=== PATIENT | female | born 1965 | race Caucasian/White ===

== ENCOUNTER → 2017-09-03 07:19 | Outpatient (CLI) | payer BC, SELFPAY ==
[2017-09-03 08:00] LABS: Alanine Aminotransferase 49 U/L (12-78); Albumin Level 3.9 gm/dL (3.4-5.0); Albumin/Globulin Ratio 1.1 (1.1-1.8); Alkaline Phosphatase 76 U/L (46-116); Anion Gap 10.9 mEq/L (5-15); Aspartate Amino Transferase 27 U/L (15-37); Bilirubin,Total 0.5 mg/dL (0.2-1.0); Blood Urea Nitrogen 14 mg/dL (7-18); Calcium 9.1 mg/dL (8.5-10.1); Carbon Dioxide 30 mmol/L (21.0-32.0); Chloride 103 mmol/L (98-107); Chol/HDL Ratio 4.4 (1-3.5); Cholesterol 215 mg/dL (140-200); Creatinine,Serum 0.89 mg/dL (0.55-1.02); Estimated Glomerular Filt Rate 66 ml/min (>60); GFR (African American) 80 ML/MIN (>60); Globulin 3.4 gm/dl (1.3-3.2); Glucose 103 mg/dL (74-106); HDL Cholesterol 49 mg/dL (29-89); LDL Cholesterol 131 mg/dL (0-130); Potassium 3.9 mmoL/L (3.5-5.1); Sodium 140 mmol/L (136-145); Thyroid Stimulating Hormone 2.89 uIU/ml (0.358-3.740); Total Protein,Serum 7.3 gm/dL (6.4-8.2); Triglycerides 176 mg/dL (30-200); VLDL Cholesterol 35 mg/dL (0-40)
[2017-09-03 08:01] LABS: Basophils % 0.4 % (0.1-2.0); Eosinophils # 0.1 K/mm3 (0.0-0.4); Eosinophils % 1.8 % (0.1-12.0); Hematocrit 45.3 % (37.0-47.0); Hemoglobin 14.8 g/dL (12.2-16.2); Lymphocytes % 39.4 K/mm3 (10-50); Mean Corpuscular HGB Conc 32.7 g/dL (31.8-35.4); Mean Corpuscular Hemoglobin 31.4 pg (27.0-31.2); Mean Corpuscular Volume 96.1 fl (81-99); Mean Platelet Volume 7.5 fl (7.4-10.4); Monocytes # 0.3 K/mm3 (0.1-1.0); Monocytes % 5.6 % (1.7-9.3); Neutrophils # 2.7 K/mm3 (1.8-7.8); Neutrophils % 52.8 % (37.0-80.0); Platelet Count 275 K/mm3 (142-424); Red Blood Count 4.71 M/mm3 (4.20-5.40); Red Cell Distribution Width 12.7 % (11.5-17.5); White Blood Count 5.1 K/mm3 (4.8-10.8)
[2017-09-04 13:22] LABS: Insulin Level Total 28.5 uIU/mL (2.6-24.9); Vitamin D 25 Hydroxy 33.6 ng/mL (30.0-100.0)
[2017-09-05 11:52] LABS: Apolipoprotein A 150 mg/dL (116-209)
== END ==
PROVIDERS: Visit Provider Nurse Practitioner Family
DX: I25.10 Atherosclerotic heart disease of native coronary artery without angina pectoris (principal); R63.5 Abnormal weight gain; I10 Essential (primary) hypertension; G47.33 Obstructive sleep apnea (adult) (pediatric)
CPT/HCPCS: 36415; 80053; 80061; 82172; 82533; 82652; 83525; 84443; 85025

== ENCOUNTER → 2017-12-16 09:38 | Outpatient (CLI) | payer BC, SELFPAY ==
[2017-12-16 12:48] LABS: Alanine Aminotransferase 51 U/L (12-78); Albumin Level 3.8 gm/dL (3.4-5.0); Albumin/Globulin Ratio 1.2 (1.1-1.8); Alkaline Phosphatase 94 U/L (46-116); Anion Gap 14.3 mEq/L (5-15); Aspartate Amino Transferase 37 U/L (15-37); Bilirubin,Total 0.5 mg/dL (0.2-1.0); Blood Urea Nitrogen 13 mg/dL (7-18); Calcium 9.6 mg/dL (8.5-10.1); Carbon Dioxide 29 mmol/L (21.0-32.0); Chloride 103 mmol/L (98-107); Chol/HDL Ratio 4.3 (1-3.5); Cholesterol 202 mg/dL (140-200); Creatinine,Serum 0.86 mg/dL (0.55-1.02); Estimated Glomerular Filt Rate 69 ml/min (>60); GFR (African American) 83 ML/MIN (>60); Globulin 3.2 gm/dl (1.3-3.2); Glucose 91 mg/dL (74-106); HDL Cholesterol 47 mg/dL (29-89); LDL Cholesterol 113 mg/dL (0-130); Potassium 4.3 mmoL/L (3.5-5.1); Sodium 142 mmol/L (136-145); Triglycerides 211 mg/dL (30-200); VLDL Cholesterol 42 mg/dL (0-40)
== END ==
PROVIDERS: Visit Provider Physician Assistant
DX: E78.5 Hyperlipidemia, unspecified (principal); I25.10 Atherosclerotic heart disease of native coronary artery without angina pectoris
CPT/HCPCS: 36415; 80053; 80061

== ENCOUNTER → 2018-01-02 16:13 | Outpatient (CLI) | payer BC, SELFPAY ==
--- NOTE | 2018-01-02 16:18 | MM_ITS ---
MM Dig screening mamm BI w/CAD ORDERING PHYSICIAN : Kalia Payne MD PATIENT AGE: 52 years GENDER: Female HISTORY. Routine screening mammogram. Patient takes estrogen. No new complaints. Family history. Noncontributory COMPARISON: No previous for comparison Prior mammogram 12 years ago have been purged from this facility [facility] as per Hospital administrative guidelines. TECHNIQUE: Standard CC and MLO images were obtained. Additional axillary cc view both breast R2 CAD reviewed. FINDINGS: Moderate residual fibroglandular elements bilaterally most evident at retroareolar region & towards upper-outer quadrant . LEFT BREAST:2 adjacent small round ~6mm densities seen at central breast.. Seen on both CC and MLO views . Smooth round margins.- These have a benign appearance and may be cysts Are noted 2 small round densities at the superior breast with slightly and lobulated margins seen on MLO view. .... On the cc view there is small focal area of density labeled towards medial breast labeled X which likely correspond with one of these areas seen on the superior breast on MLO view.. There are other smaller scattered areas of focal density/nodularity.. These are less evident at currently less concern but will be surveyed on the additional views as well. Recommend CC and MLO spot view for these nodular densities at superior breast; and a full 90 degree view entire breast, followed by ultrasound left breast RIGHT BREAST:Small area of density at the deep upper outer right breast is labeled a. May merely be summation shadow of fibroglandular elements but it also would benefit from spot views and ultrasound left breast the patient returns. This just over 6 mm size. Small 4.5 mm round nodular density at the medial right breast may be a cyst IMPRESSION . 1.. Additional views bilaterally along, with bilateral breast ultrasound recommended. 2. LEFT BREAST. Scattered small nodular densities some with smooth margin, some with slightly lobulated margins. . Multiplicity tends to supports benign nature.-Thus May merely BE cysts 3. RIGHT BREAST Also some scattered small areas of densities at the right breast which would benefit from spot views as well when patient returns. Particular the area labeled a BI-RADS Category: 0 Need Additional Imaging Evaluaiton. RECOMMENDED FOLLOW-UP: IMM - IMMEDIATE FOLLOW-UP RECOMMENDED ADDITIONAL IMAGING AT THIS TIME RECOMMENDED Recommended follow-up at patient's convenience with Spot views and ultrasound breast (A letter has been sent to the patient regarding results of the study.)
== END ==
PROVIDERS: Visit Provider Internal Medicine Adolescent Medicine
DX: Z12.31 Encounter for screening mammogram for malignant neoplasm of breast (principal)
CPT/HCPCS: 77067

== ENCOUNTER → 2018-01-28 13:38 | Outpatient (CLI) | payer BC, SELFPAY ==
--- NOTE | 2018-01-28 13:42 | MM_ITS ---
. MM Dig mamm BI DX w/CAD, US breast LT complete COMPARISON: January 02, 2018. INDICATION: Densities, nodularity bilaterally. TECHNIQUE: Spot CC and MLO images were obtained. R2 CAD reviewed. DIAGNOSTIC BILATERAL MAMMOGRAM-SPOT VIEWS BILATERAL LEFT BREAST Spot views again show a small rounded density.. The largest measuring 6 mm the located at 3-4 o'clock position.. Subcutaneous ultrasound shows a 6.3 mm cyst in this location to correlate. Scattered small round density become less evident on today's spot views but we do see scattered small cysts throughout the breast on ultrasound which would likely correlate RIGHT BREAST Small focus density of density deep right breast seems to dissipate on today's MLO spot view. Most likely is a benign feature. Follow-up right mammogram 6 months would be adequate.. On also to further evaluate the small area of nodularity at the medial right breast which was not included on recent spot views. ULTRASOUND LEFT BREAST INCLUDING AXILLA SURVEY Ultrasound of the left breast demonstrate scattered small cyst throughout 1:00 there is a 3.7 mm cyst mid breast 3:00 6.3 mm cyst mid-central breast which likely corresponds with the round density on mammography.. 6:00 small 3.7 mm cyst. Mid breast. Axillary survey. Postinfusion findings benign-appearing axillary lymph nodes. IMPRESSION: 1. LEFT BREAST. Multiple small benign cysts seen on today's ultrasound. The largest measures 6.4 mm corresponds with a rounded density at 3:00-4:00 on spot views and recent mammogram. No areas of concern follow-up in one year adequate. 2. RIGHT BREAST. Small density at the deep right breast seems to dissipate on today's MLO view, of less concern. Follow-up 6-8 months suggested for the above minor most likely benign, as well as a small 5 mm lobulated nodular density medial right breast seen on January 02, 2018 exam.. BI-RADS Category: 3 Benign Finding Short Term Follow-up RECOMMENDED FOLLOW-UP: 6M - 6 MONTH FOLLOW-UP Right mammogram 6-8 months (A letter has been sent to the patient regarding results of the study.)
== END ==
PROVIDERS: PCP Internal Medicine Adolescent Medicine; Visit Provider Internal Medicine Adolescent Medicine
DX: R92.8 Other abnormal and inconclusive findings on diagnostic imaging of breast (principal)
CPT/HCPCS: 76641; 77066

== ENCOUNTER → 2018-04-05 09:01 | Outpatient (CLI) | payer BC, SELFPAY ==
[2018-04-05 11:32] LABS: Alanine Aminotransferase 61 U/L (12-78); Albumin Level 3.9 gm/dL (3.4-5.0); Albumin/Globulin Ratio 1.2 (1.1-1.8); Alkaline Phosphatase 93 U/L (46-116); Anion Gap 14.2 mEq/L (5-15); Aspartate Amino Transferase 56 U/L (15-37); Bilirubin,Total 0.8 mg/dL (0.2-1.0); Blood Urea Nitrogen 9 mg/dL (7-18); Calcium 9.4 mg/dL (8.5-10.1); Carbon Dioxide 29 mmol/L (21.0-32.0); Chloride 101 mmol/L (98-107); Chol/HDL Ratio 3.2 (1-3.5); Cholesterol 136 mg/dL (140-200); Creatinine,Serum 0.94 mg/dL (0.55-1.02); Estimated Glomerular Filt Rate 62 ml/min (>60); GFR (African American) 75 ML/MIN (>60); Globulin 3.3 gm/dl (1.3-3.2); Glucose 99 mg/dL (74-106); HDL Cholesterol 42 mg/dL (29-89); LDL Cholesterol 53 mg/dL (0-130); Potassium 4.2 mmoL/L (3.5-5.1); Sodium 140 mmol/L (136-145); Total Protein,Serum 7.2 gm/dL (6.4-8.2); Triglycerides 204 mg/dL (30-200); VLDL Cholesterol 41 mg/dL (0-40)
== END ==
PROVIDERS: PCP Internal Medicine Adolescent Medicine; Visit Provider Physician Assistant
DX: I25.10 Atherosclerotic heart disease of native coronary artery without angina pectoris (principal); E78.5 Hyperlipidemia, unspecified
CPT/HCPCS: 36415; 80053; 80061

== ENCOUNTER 2018-06-14 12:32 | Observation (INO) ==
[2018-06-14 13:26] LABS: Basophils % 0.4 % (0.1-2.0); Eosinophils # 0.1 K/mm3 (0.0-0.4); Hematocrit 46.9 % (37.0-47.0); Hemoglobin 15.3 g/dL (12.2-16.2); Lymphocytes # 2.1 K/mm3 (0.7-4.5); Lymphocytes % 42.2 % (10-50); Mean Corpuscular HGB Conc 32.7 g/dL (31.8-35.4); Mean Corpuscular Hemoglobin 30.8 pg (27.0-31.2); Mean Corpuscular Volume 94.3 fl (81-99); Mean Platelet Volume 7.6 fl (7.4-10.4); Monocytes # 0.3 K/mm3 (0.1-1.0); Monocytes % 5.8 % (1.7-9.3); Neutrophils # 2.4 K/mm3 (1.8-7.8); Neutrophils % 49.7 % (37.0-80.0); Platelet Count 259 K/mm3 (142-424); Red Blood Count 4.97 M/mm3 (4.20-5.40); Red Cell Distribution Width 12.9 % (11.5-17.5); White Blood Count 4.9 K/mm3 (4.8-10.8)
--- NOTE | 2018-06-14 13:44 | Pharmacy Consult Notes ---
[facility] Pharmacy VTE Monitoring - Patient Demographics Admission date: 06/14/18 Report Date: 06/14/18 Time: 13:44 Allergies/Adverse Reactions: Patient Allergies butorphanol Allergy (Severe, Unverified 03/11/18 17:17) S-DROP IN B/P rosuvastatin Allergy (Intermediate, Unverified 03/11/18 17:17) I-HIVES Height: 1.7 m Weight: 85.474 kg - VTE Risk Labs: VTE Related Lab Results Hgb 15.3 g/dL (12.2-16.2) 06/14/18 12:55 Hct 46.9 % (37.0-47.0) 06/14/18 12:55 Plt Count 259 K/mm3 (142-424) 06/14/18 12:55 VTE Score: 4 VTE Risk Level: Low Risk - Prophylaxis VTE Prophylaxis Ordered?: Yes Types of VTE Prophylaxis: TEDS Knee High Location of Applied Device: Bilateral Lower Extremeties - VTE Diagnosis Confirmed Treatment or plan recommended: Continue Current Treatment
--- NOTE | 2018-06-14 13:45 | History & Physical Report ---
*Admission Date: 06/14/18 *Chief complaint: chest pain *History of present illness: 53 year old female with a h/o CAD w/ TX, HTN, hyperlipidemia and presented to PCP office with c/o left arm pain that radiated to neck/jaw last evening. Patient reports pain was assoc with upper back pain and shortness of breath. Currently has an ache in lower arm/wrist. Symptoms c/w TX 3 years ago. Last heart cath 1.5 years ago with no intervention at that time. Patient reports fatigue which has significantly worsened over the last 3 months. EKG in the office showed T wave changes with no acute ischemia, c/w EKG from 2017. Patient was admitted to acute care for serial enzymes and further evaluation. [facility] History I have reviewed the patient's past medical history: Yes Medical History: Reports:: Coronary Artery Disease, Diabetes Mellitus Type 2, Hy perlipidemia, Hypertension Denies:: Cancer, Diabetes Mellitus Type 1, MRSA Other Surgeries: Yes: Appendectomy, Coronary Stent, Hysterectomy-Total, Tubal Ligation Amputation: No - *Social History Educational Level: Completed Graduate School Smoking Status: Never smoker Alcohol Intake: never Occupational Status: retired Housing: house Household Members: spouse, children - Psychiatric History Expresses thoughts of harming self/others: None Suicide Plan Description: No Plan *Family Hx:: Diabetes, Coronary Artery Disease, Heart Attack Review of Systems - Review of Systems Review of systems:: pertinent systems reviewed and negative unless documented below - Constitutional Reports fatigue - *Cardiovascular Reports shortness of breath, Reports other Comments: upper back pain, left arm/jaw pain - *Gastrointestinal Reports nausea Meds Home Medications Medication Instructions Recorded Confirmed Type aspirin 81 mg tablet,delayed 81 mg PO DAILY 03/11/18 06/14/18 History release hydrochlorothiazide 12.5 mg capsule 12.5 mg PO DAILY 03/11/18 06/14/18 History metformin 500 mg tablet 500 mg PO HS tab 03/11/18 06/14/18 History nebivolol 5 mg tablet 5 mg PO BID tab 03/11/18 06/14/18 History rosuvastatin 20 mg tablet 40 mg PO HS tab 03/11/18 06/14/18 History Ascorbate Calcium [Vitamin C] 500 mg PO DAILY 06/14/18 06/14/18 History Estrogen,Richelle/Me-Testosterone 1 tab PO DAILY 06/14/18 06/14/18 History [Estrogen-Methyltestos F.s. Tab] Ezetimibe 10 mg PO DAILY 06/14/18 06/14/18 History Mv-Mn/Folic Acid/Calcium/Vit K 1 each PO DAILY 06/14/18 06/14/18 History [Women's 50 Plus Multivit Tab] Omeprazole [Omeprazole 20mg 20 mg PO DAILY 06/14/18 06/14/18 History Capsule] Ubidecarenone [Co Q-10] 200 mg PO DAILY 06/14/18 06/14/18 History Allergies Allergy/AdvReac Type Severity Reaction Status Date / Time butorphanol Allergy Severe S-DROP IN Unverified 03/11/18 17:17 B/P rosuvastatin Allergy Intermediate I-HIVES Unverified 03/11/18 17:17 Exam Vital signs and Labs for Last 24 Hours: Temp Pulse Resp BP Pulse Ox 97.5 F L 68 18 132/77 94 L 06/14/18 12:34 06/14/18 12:34 06/14/18 12:34 06/14/18 12:34 06/14/18 12:34 Laboratory Results - last 24 hr 06/14/18 12:55: WBC 4.9, RBC 4.97, Hgb 15.3, Hct 46.9, MCV 94.3, MCH 30.8, MCHC 32.7, RDW 12.9, Plt Count 259, MPV 7.6, Neut % (Auto) 49.7, Lymph % (Auto) 42.2, [place] % (Auto) 5.8, Eos % (Auto) 2.0, Baso % (Auto) 0.4, Neut # (Auto) 2.4, Lymph # (Auto) 2.1, [place] # (Auto) 0.3, Eos # (Auto) 0.1, Baso # (Auto) 0.0 I & O for Last 24 hours: Intake & Output 06/12/18 06/13/18 06/14/18 06/15/18 11:59 11:59 11:59 11:59 Weight 188 lb 7 oz Narrative: Alert and oriented x3. Rate and rhythm regular. No LE edema. Lung sound clear and equal bilaterally. Abdomen soft and nontender. No JVD. No carotid bruit. Skin pink, warm and dry. ENT exam unremarkable. No neuro deficits. Assessment and Plan (1) CAD (coronary artery disease) Current visit: Yes Status: Chronic Category: Medical Code(s): I25.10 - Atherosclerotic heart disease of [place] coronary artery without angina pectoris (2) Hyperlipemia Current visit: Yes Status: Chronic Category: Medical Code(s): E78.5 - Hyperlipidemia, unspecified (3) Hypertension Current visit: Yes Status: Chronic Category: Medical Code(s): I10 - Essential (primary) hypertension - Assessment and plan all Dx Assessment and Plan for all problems:: Symptoms are concerning for angina given her history and multiple risk factors. Admit for observation with serial enzymes and chest pain protocol.
[2018-06-14 13:49] LABS: Carbon Dioxide 27 mmol/L (21.0-32.0); Chloride 101 mmol/L (98-107); Creatine Kinase 111 U/L (26-192); Potassium 3.7 mmoL/L (3.5-5.1); Sodium 140 mmol/L (136-145)
[2018-06-14 13:50] LABS: Alanine Aminotransferase 71 U/L (12-78); Albumin Level 4.3 gm/dL (3.4-5.0); Albumin/Globulin Ratio 1.1 (1.1-1.8); Alkaline Phosphatase 101 U/L (46-116); Anion Gap 11.7 mEq/L (5-15); Aspartate Amino Transferase 55 U/L (15-37); Bilirubin,Total 0.7 mg/dL (0.2-1.0); Blood Urea Nitrogen 13 mg/dL (7-18); Calcium 9.5 mg/dL (8.5-10.1); Globulin 3.8 gm/dl (1.3-3.2); Glucose 101 mg/dL (74-106); Total Protein,Serum 8.1 gm/dL (6.4-8.2)
[2018-06-14 17:06] LABS: Creatine Kinase 101 U/L (26-192)
[2018-06-14 20:05] LABS: Creatine Kinase 94 U/L (26-192)
[2018-06-15 06:41] LABS: Chol/HDL Ratio 3.4 (1-3.5)
[2018-06-15 07:04] LABS: Thyroid Stimulating Hormone 3.46 uIU/ml (0.358-3.740)
--- NOTE | 2018-06-15 08:34 | Discharge Summary ---
General - General Admission date:: 06/14/18 Discharge date: 06/15/18 HPI HPI: 53 year old female with a h/o CAD w/ ME, HTN, hyperlipidemia and presented to PCP office with c/o left arm pain that radiated to neck/jaw last evening. Patient reports pain was assoc with upper back pain and shortness of breath. Currently has an ache in lower arm/wrist. Symptoms c/w ME 3 years ago. Last heart cath 1.5 years ago with no intervention at that time. Patient reports fatigue which has significantly worsened over the last 3 months. EKG in the office showed T wave changes with no acute ischemia, c/w EKG from 2017. Patient was admitted to acute care for serial enzymes and further evaluation. Hospital Course Hospital Course: Patient was admitted, had no unusual events on telemetry monitoring and EKG complexes remained at baseline. Serial cardiac enzymes were done with undetectable troponin levels x3. Other labs were nonsignificant. This morning patient feels well, had one episode when she lay flat last night of left arm tingling and reports that this is similar to the event she has had at home over the past couple of months that almost always occur when she lies flat. She reports that she has been walking around the room and the hospital hallway without chest pain, shortness of air or fatigue. Exam was unremarkable. Patient will be discharged home. I am curious that she may have a cervical n euralgia. We will obtain neck x-rays today, and at her follow-up appointment on Saturday we will discuss these x-rays and discuss whether or not MRI would be indicated. We did review the signs/symptoms of angina and discussed the concept of atypical angina. I do not believe this represents her case-but instructed to come back to the emergency department if she became more concerned about cardiac symptoms. Objective Vital signs: Temp Pulse Resp BP Pulse Ox 98.1 F 71 17 106/59 L 95 06/15/18 04:00 06/15/18 04:00 06/15/18 04:00 06/15/18 04:00 06/15/18 04:00 no acute distress, average body habitus, cooperative - *Routine HEENT Exam Head: Present: normocephalic, atraumatic Eye: Present: EOMI, PERRL ENT: Present: mucous membranes moist - *Routine Neck Exam Present: supple, full ROM. Absent: JVD, carotid bruit - *Routine Respiratory Exam Present: CTA bilaterally. Absent: prolonged expiratory phase, rales, respiratory distress - *Routine Cardiovascular Exam Present: RRR, Normal S1, Normal S2. Absent: murmur - *Routine Abdominal Exam Present: soft, normoactive bowel sounds - *Routine Extremities Exam Present: full ROM. Absent: cyanosis, clubbing, edema - *Routine Neurological Exam Present: alert, oriented X3, moving all extremities, normal tone, normal speech. Absent: facial asymmetry, tremors - Routine Psychiatric Exam Present: normal affect, normal thought process Results Labs on day of discharge: Labs from last 24 hours 06/15/18 06/14/18 06/14/18 06:15 19:28 16:34 WBC RBC Hgb Hct MCV MCH MCHC RDW Plt Count MPV Neut % (Auto) Lymph % (Auto) [place] % (Auto) Eos % (Auto) Baso % (Auto) Neut # (Auto) Lymph # (Auto) [place] # (Auto) Eos # (Auto) Baso # (Auto) D-Dimer Sodium Potassium Chloride Carbon Dioxide Anion Gap BUN Creatinine Estimated Creat Clear Estimated GFR Est GFR ( Amer) Glucose Calcium Total Bilirubin AST ALT Alkaline Phosphatase Total Creatine Kinase 94 101 CK-MB (CK-2) 1.0 1.2 CK-MB (CK-2) Rel Index 1.1 1.2 Troponin I < 0.02 < 0.02 Total Protein Albumin Globulin Albumin/Globulin Ratio Triglycerides 189 Cholesterol 118 L LDL Cholesterol 45 VLDL Cholesterol 38 HDL Cholesterol 35 Cholesterol/HDL Ratio 3.4 TSH 3.46 06/14/18 06/14/18 06/14/18 12:55 12:55 12:55 WBC 4.9 RBC 4.97 Hgb 15.3 Hct 46.9 MCV 94.3 MCH 30.8 MCHC 32.7 RDW 12.9 Plt Count 259 MPV 7.6 Neut % (Auto) 49.7 Lymph % (Auto) 42.2 [place] % (Auto) 5.8 Eos % (Auto) 2.0 Baso % (Auto) 0.4 Neut # (Auto) 2.4 Lymph # (Auto) 2.1 [place] # (Auto) 0.3 Eos # (Auto) 0.1 Baso # (Auto) 0.0 D-Dimer 100 Sodium 140 Potassium 3.7 Chloride 101 Carbon Dioxide 27 Anion Gap 11.7 BUN 13 Creatinine 0.90 Estimated Creat Clear 95 Estimated GFR 65 Est GFR ( Amer) 79 Glucose 101 Calcium 9.5 Total Bilirubin 0.7 AST 55 H ALT 71 Alkaline Phosphatase 101 Total Creatine Kinase 111 CK-MB (CK-2) 1.4 CK-MB (CK-2) Rel Index 1.3 Troponin I < 0.02 Total Protein 8.1 Albumin 4.3 Globulin 3.8 H Albumin/Globulin Ratio 1.1 Triglycerides Cholesterol LDL Cholesterol VLDL Cholesterol HDL Cholesterol Cholesterol/HDL Ratio TSH DS: Diagnosis - Discharge Diagnosis (1) CAD (coronary artery disease) Status: Chronic (2) Hyperlipemia Status: Chronic (3) Hypertension Status: Chronic (4) Cervical neuralgia Status: Acute Discharge Plan - Patient Discharge Instructions ACTIVITY: Continue current activity DIET: continue same diet Patient Instructions: DI for Chest Pain - Follow up Plan Follow up with: Kathryn Sheldon APRN [Nurse Practitioner] - 06/18/18 10:00 am Disposition: Home, [facility] Medications: Home Medications Medication Instructions Recorded Confirmed Type aspirin 81 mg tablet,delayed 81 mg PO DAILY 03/11/18 06/14/18 History release hydrochlorothiazide 12.5 mg capsule 12.5 mg PO DAILY 03/11/18 06/14/18 History metformin 500 mg tablet 500 mg PO HS tab 03/11/18 06/14/18 History nebivolol 5 mg tablet 5 mg PO BID tab 03/11/18 06/14/18 History rosuvastatin 20 mg tablet 40 mg PO HS tab 03/11/18 06/14/18 History Ascorbate Calcium [Vitamin C] 500 mg PO DAILY 06/14/18 06/14/18 History Estrogen,Richelle/Me-Testosterone 1 tab PO DAILY 06/14/18 06/14/18 History [Estrogen-Methyltestos F.s. Tab] Ezetimibe 10 mg PO DAILY 06/14/18 06/14/18 History Mv-Mn/Folic Acid/Calcium/Vit K 1 each PO DAILY 06/14/18 06/14/18 History [Women's 50 Plus Multivit Tab] Omeprazole [Omeprazole 20mg 20 mg PO DAILY 06/14/18 06/14/18 History Capsule] Ubidecarenone [Co Q-10] 200 mg PO DAILY 06/14/18 06/14/18 History Prescriptions/Medication Reconciliation: Continue nebivolol 5 mg tablet 5 mg PO BID tab rosuvastatin 20 mg tablet 40 mg PO HS tab aspirin 81 mg tablet,delayed release 81 mg PO DAILY hydrochlorothiazide 12.5 mg capsule 12.5 mg PO DAILY metformin 500 mg tablet 500 mg PO HS tab Omeprazole [Omeprazole 20mg Capsule] 20 mg PO DAILY Ezetimibe 10 mg PO DAILY Ubidecarenone [Co Q-10] 200 mg PO DAILY Mv-Mn/Folic Acid/Calcium/Vit K [Women's 50 Plus Multivit Tab] 1 each PO DAILY Ascorbate Calcium [Vitamin C] 500 mg PO DAILY Estrogen,Richelle/Me-Testosterone [Estrogen-Methyltestos F.s. Tab] 1 tab PO DAILY
== END 2018-06-15 10:00 | disposition home or self-care (01) ==
LOC: 2ND
PROVIDERS: ADMIT Internal Medicine Adolescent Medicine; ATTEND Internal Medicine Adolescent Medicine
CPT/HCPCS: 36415; 71020; 71046; 72052; 80053; 80061; 82550; 82553; 84443; 84484; 85025; 85378; 90732; G0378

== ENCOUNTER → 2018-06-19 15:21 | Outpatient (CLI) | payer BC, SELFPAY | PROVIDERS: Visit Provider Physician Assistant | DX: R07.9 Chest pain, unspecified (principal); I25.10 Atherosclerotic heart disease of native coronary artery without angina pectoris | CPT/HCPCS: 93005 ==

== ENCOUNTER → 2018-07-28 10:03 | Outpatient (CLI) | payer BC, SELFPAY ==
[2018-07-28 10:20] LABS: Blood Urea Nitrogen 19 mg/dL (7-18); Creatinine,Serum 0.93 mg/dL (0.55-1.02); Estimated Glomerular Filt Rate 63 ml/min (>60); GFR (African American) 76 ML/MIN (>60)
--- NOTE | 2018-07-28 10:30 | CT_ITS ---
CT abdomen pelvis w con INDICATION: Periumbilical pain. hernia UMBILICAL HERNIA, ABD PAIN Previous appendectomy hysterectomy and stents. ORDERING PHYSICIAN: Kathryn Sheldon PATIENT AGE: 53 years COMPARISON: . TECHNIQUE: 75 cc Isovue-370 along with enteric Vincent-CAT contrast utilized Axial images obtained with sagittal and coronal reformats. All CT scans at the facility use one or more dose reduction, viz: automated exposure control, ma/kV adjustment per patient size (including targeted exams where dose is matched to indication, i.e. head), or iterative reconstruction technique. FINDINGS: Lung bases are clear. Heart normal size. LAD calcification and stent noted. Abdomen/pelvis. Liver, spleen, pancreas, adrenals appears satisfactory & unremarkable. Gallbladder. No calcified gallstones. No biliary ductal dilatation. TRACT: No urinary tract obstruction. Right kidney.... Normal-appearing right kidney slightly tilted Oblique position of right kidney noted. Left kidney.... Tiny 3 mm mm nonobstructing calculus midportion left kidney Only note scant fluid overlying superior margin left kidney as seen on coronal image 67. Nonspecific may merely reflect stranding but. Consider correlation with urinalysis particularly if flank pain or history of urinary tract infection. Ureters are unremarkable bilaterally. No dilatation. No calculi. Pelvis Tiny Phleboliths at the pelvic basin bilaterally . Urinary bladder appears satisfactory.. There is a somewhat long finger like area bladder extending anteriorly and slightly superiorly, likely reflecting likely urachal remnant. Not of clinical significance. . Hysterectomy. No adnexal masses. No free fluid no free air abdomen or pelvis GI TRACT no bowel dilatation or obstruction. Stomach is fairly empty. Small bowel is WNL.. The enteric contrast is seen because more dense and evident at the distal small bowel. Terminal ileum appears normal. Postsurgical Appendiceal stump noted. . Moderate stool is seen throughout the entire colon. --------- ABDOMINAL WALL Small Ventral hernia at region of umbilicus. This is a small umbilical hernia or may actually arise just off along the superior margin of the umbilicus. The abdominal wall defect measuring up to 1 cm height,,. This cm wide.. There is bulging of hazy fat into this hernia. Which measures up to 2.5 cm maximally... There is hazy appearance may reflect mild inflammation at the omental fat within this small hernia sac. There is also some subtle inflammation in the wall about this area. No bowel loops are included here. No additional abdominal hernias are identified.. No additional no ventral hernia. No inguinal hernia... There is some mild inflammation about this IMPRESSION: 1. Small ventral hernia at arising at, or just along the superior margin of umbilicus. . No bowel loops are seen here. But this small hernia sac contains hazy, suspect mildly inflamed appearing fat. Suggest surgical follow-up if tenderness/or pain here.
--- NOTE | 2018-07-28 14:30 | MM_ITS ---
MM Dig mamm DX unilat RT CAD Ordering Physician: Kathryn Sheldon Patient Age: 53 years Female COMPARISON: January 2018 diagnostic mammogram. December 2017 bilateral mammogram. INDICATION: Follow-up asymmetric densities. TECHNIQUE: MLO, CC, axillary cc views. Also spot MLO and 90 degree and axillary cc views for FINDINGS: 2 Small focal area of density at the deep right breast upper-outer quadrant. Most notable is a area at the far lateral breast on cc view. However this and other features dissipate dissipates on the axillary cc and the other spot views view today, decreasing concern and supporting benign feature these areas appear stable if not slightly less evident than on previous 2018 studies.. With this follow-up would be adequate. Bilateral mammogram to resume annual schedule in January recommended IMPRESSION: Follow-up studies decreased concern and supports benign nature. Small focal areas of density density previously noted become less evident on spot views. This supports benign nature. Period patient may resume annual schedule. BI-RADS Category: 2 Benign Finding(s) RECOMMENDED FOLLOW-UP: 6M 6 MONTH FOLLOW-UP A letter has been sent to the patient regarding results of the study.)
== END ==
PROVIDERS: PCP Internal Medicine Adolescent Medicine; Visit Provider Nurse Practitioner Family
DX: R92.8 Other abnormal and inconclusive findings on diagnostic imaging of breast (principal); R10.33 Periumbilical pain; K42.9 Umbilical hernia without obstruction or gangrene
CPT/HCPCS: 36415; 74177; 77065; 82565; 84520; Q9967

== ENCOUNTER → 2018-08-04 10:58 | Outpatient (CLI) | payer BC, SELFPAY ==
[2018-08-04 11:29] LABS: Basophils % 0.4 % (0.1-2.0); Eosinophils # 0.1 K/mm3 (0.0-0.4); Eosinophils % 1.4 % (0.1-12.0); Hematocrit 44.9 % (37.0-47.0); Hemoglobin 14.3 g/dL (12.2-16.2); Lymphocytes # 2.2 K/mm3 (0.7-4.5); Lymphocytes % 33.3 % (10-50); Mean Corpuscular HGB Conc 31.9 g/dL (31.8-35.4); Mean Corpuscular Hemoglobin 30.5 pg (27.0-31.2); Mean Corpuscular Volume 95.6 fl (81-99); Mean Platelet Volume 7.8 fl (7.4-10.4); Monocytes # 0.3 K/mm3 (0.1-1.0); Monocytes % 3.8 % (1.7-9.3); Neutrophils % 61.1 % (37.0-80.0); Platelet Count 305 K/mm3 (142-424); Red Cell Distribution Width 12.8 % (11.5-17.5); White Blood Count 6.5 K/mm3 (4.8-10.8)
[2018-08-04 12:07] LABS: Anion Gap 13.8 mEq/L (5-15); Blood Urea Nitrogen 22 mg/dL (7-18); Calcium 9.4 mg/dL (8.5-10.1); Carbon Dioxide 30 mmol/L (21.0-32.0); Chloride 101 mmol/L (98-107); Creatinine,Serum 1.03 mg/dL (0.55-1.02); Estimated Glomerular Filt Rate 56 ml/min (>60); GFR (African American) 67 ML/MIN (>60); Glucose 137 mg/dL (74-106); Potassium 3.8 mmoL/L (3.5-5.1); Sodium 141 mmol/L (136-145)
== END ==
PROVIDERS: Visit Provider Surgery
DX: K46.9 Unspecified abdominal hernia without obstruction or gangrene (principal)
CPT/HCPCS: 36415; 80048; 85025

== ENCOUNTER → 2018-11-06 12:56 | Outpatient (CLI) | payer BC, SELFPAY ==
[2018-11-06 13:21] LABS: Activated Partial Thrombo Time 28.8 seconds (23.6-34.0); INR 0.95 (0.9-1.1); Prothrombin Time 9.8 seconds (9.4-11.8)
[2018-11-06 14:49] LABS: Anion Gap 13.9 mEq/L (5-15); Blood Urea Nitrogen 12 mg/dL (7-18); Calcium 9.3 mg/dL (8.5-10.1); Carbon Dioxide 29 mmol/L (21.0-32.0); Chloride 103 mmol/L (98-107); Creatinine,Serum 0.86 mg/dL (0.55-1.02); Estimated Glomerular Filt Rate 69 ml/min (>60); GFR (African American) 83 ML/MIN (>60); Glucose 89 mg/dL (74-106); Potassium 3.9 mmoL/L (3.5-5.1); Sodium 142 mmol/L (136-145)
[2018-11-06 18:53] LABS: Basophils % 0.4 % (0.1-2.0); Eosinophils # 0.2 K/mm3 (0.0-0.4); Hematocrit 42.6 % (37.0-47.0); Hemoglobin 14.2 g/dL (12.2-16.2); Lymphocytes # 2.1 K/mm3 (0.7-4.5); Lymphocytes % 35.3 % (10-50); Mean Corpuscular HGB Conc 33.5 g/dL (31.8-35.4); Mean Corpuscular Hemoglobin 30.8 pg (27.0-31.2); Mean Platelet Volume 7.9 fl (7.4-10.4); Monocytes # 0.4 K/mm3 (0.1-1.0); Monocytes % 5.8 % (1.7-9.3); Neutrophils # 3.3 K/mm3 (1.8-7.8); Neutrophils % 54.6 % (37.0-80.0); Platelet Count 260 K/mm3 (142-424); Red Blood Count 4.63 M/mm3 (4.20-5.40); Red Cell Distribution Width 12.6 % (11.5-17.5); White Blood Count 6.1 K/mm3 (4.8-10.8)
== END ==
PROVIDERS: Visit Provider Nurse Practitioner Family
DX: Z01.818 Encounter for other preprocedural examination (principal)
CPT/HCPCS: 36415; 80048; 85025; 85610; 85730

== ENCOUNTER → 2019-06-20 08:26 | Outpatient (CLI) | payer BC, SELFPAY ==
[2019-06-20 08:48] LABS: Basophils % 0.5 % (0.1-2.0); Eosinophils # 0.2 K/mm3 (0.0-0.4); Eosinophils % 3.6 % (0.1-12.0); Hematocrit 43.1 % (37.0-47.0); Hemoglobin 14.4 g/dL (12.2-16.2); Lymphocytes # 2.2 K/mm3 (0.7-4.5); Lymphocytes % 45.3 % (10-50); Mean Corpuscular HGB Conc 33.3 g/dL (31.8-35.4); Mean Corpuscular Hemoglobin 30.6 pg (27.0-31.2); Mean Corpuscular Volume 91.8 fl (81-99); Mean Platelet Volume 7.8 fl (7.4-10.4); Monocytes # 0.3 K/mm3 (0.1-1.0); Monocytes % 6.1 % (1.7-9.3); Neutrophils # 2.1 K/mm3 (1.8-7.8); Neutrophils % 44.5 % (37.0-80.0); Platelet Count 254 K/mm3 (142-424); Red Blood Count 4.69 M/mm3 (4.20-5.40); Red Cell Distribution Width 12.8 % (11.5-17.5); White Blood Count 4.7 K/mm3 (4.8-10.8)
[2019-06-20 10:17] LABS: Hemoglobin A1C 6.2 % (0.0-7.0)
[2019-06-20 13:29] LABS: Alanine Aminotransferase 69 U/L (12-78); Albumin Level 3.6 gm/dL (3.4-5.0); Albumin/Globulin Ratio 1.1 (1.1-1.8); Alkaline Phosphatase 87 U/L (46-116); Anion Gap 18.2 mEq/L (5-15); Aspartate Amino Transferase 66 U/L (15-37); Bilirubin,Total 0.6 mg/dL (0.2-1.0); Blood Urea Nitrogen 16 mg/dL (7-18); Carbon Dioxide 26 mmol/L (21.0-32.0); Chloride 102 mmol/L (98-107); Creatinine,Serum 0.82 mg/dL (0.55-1.02); Estimated Glomerular Filt Rate 72 ml/min (>60); GFR (African American) 87 ML/MIN (>60); Globulin 3.2 gm/dl (1.3-3.2); Glucose 101 mg/dL (74-106); Potassium 4.2 mmoL/L (3.5-5.1); Sodium 142 mmol/L (136-145); Total Protein,Serum 6.8 gm/dL (6.4-8.2)
== END ==
PROVIDERS: Visit Provider Nurse Practitioner Family
DX: I25.10 Atherosclerotic heart disease of native coronary artery without angina pectoris (principal); I10 Essential (primary) hypertension; E78.00 Pure hypercholesterolemia, unspecified; E11.9 Type 2 diabetes mellitus without complications; Z79.84 Long term (current) use of oral hypoglycemic drugs
CPT/HCPCS: 36415; 80053; 82533; 83036; 85025

== ENCOUNTER → 2019-11-14 10:12 | Outpatient (CLI) | payer BC, SELFPAY ==
[2019-11-14 10:43] LABS: Hematocrit 43.3 % (37.0-47.0); Hemoglobin 14.2 g/dL (12.2-16.2)
[2019-11-14 10:52] LABS: Hemoglobin A1C 5.7 % (4.0-6.0)
[2019-11-14 11:15] LABS: Chloride 102 mmol/L (98-107)
[2019-11-14 11:16] LABS: Potassium 4.6 mmoL/L (3.5-5.1); Sodium 136 mmol/L (136-145)
[2019-11-14 11:18] LABS: Alanine Aminotransferase 105 U/L (12-78); Aspartate Amino Transferase 112 U/L (14-36); Blood Urea Nitrogen 15 mg/dl (7-17); Estimated Glomerular Filt Rate 74 ml/min (>60); GFR (African American) 90 ML/MIN (>60)
[2019-11-14 11:19] LABS: Albumin Level 4.7 g/dl (3.5-5.0); Albumin/Globulin Ratio 1.7 (1.1-1.8); Alkaline Phosphatase 101 U/L (38-126); Anion Gap 11.6 mEq/L (5-15); Bilirubin,Total 0.8 mg/dl (0.2-1.3); Calcium 10.1 mg/dl (8.4-10.2); Carbon Dioxide 27 mmol/L (22.0-30.0); Chol/HDL Ratio 6.9 (1-3.5); Cholesterol 249 mg/dl (140-200); Globulin 2.8 g/dL (1.3-3.2); Glucose 109 mg/dl (74-100); HDL Cholesterol 36 mg/dl (40-60); Total Protein,Serum 7.5 g/dl (6.3-8.2); Triglycerides 368 mg/dl (30-150); VLDL Cholesterol 74 mg/dL (0-40)
[2019-11-14 11:30] LABS: Direct LDL Cholesterol 171.31 mg/dL (100-129)
== END ==
PROVIDERS: PCP Internal Medicine Adolescent Medicine; Visit Provider Nuclear Medicine Nuclear Cardiology
DX: I25.10 Atherosclerotic heart disease of native coronary artery without angina pectoris (principal); I10 Essential (primary) hypertension; E78.00 Pure hypercholesterolemia, unspecified; G47.33 Obstructive sleep apnea (adult) (pediatric); E11.9 Type 2 diabetes mellitus without complications; Z79.84 Long term (current) use of oral hypoglycemic drugs
CPT/HCPCS: 36415; 80053; 80061; 83036; 85014; 85018

== ENCOUNTER → 2019-12-22 07:49 | Outpatient (CLI) | payer BC, SELFPAY ==
[2019-12-22 09:40] LABS: Alanine Aminotransferase 86 U/L (12-78); Albumin Level 4.7 g/dl (3.5-5.0); Albumin/Globulin Ratio 1.6 (1.1-1.8); Alkaline Phosphatase 117 U/L (38-126); Anion Gap 16.3 mEq/L (5-15); Aspartate Amino Transferase 109 U/L (14-36); Bilirubin,Total 0.8 mg/dl (0.2-1.3); Blood Urea Nitrogen 16 mg/dl (7-17); Calcium 10.3 mg/dl (8.4-10.2); Carbon Dioxide 25 mmol/L (22.0-30.0); Chloride 101 mmol/L (98-107); Estimated Glomerular Filt Rate 74 ml/min (>60); GFR (African American) 90 ML/MIN (>60); Glucose 107 mg/dl (74-100); HDL Cholesterol 40 mg/dl (40-60); Potassium 4.3 mmoL/L (3.5-5.1); Sodium 138 mmol/L (136-145); Total Protein,Serum 7.7 g/dl (6.3-8.2)
[2019-12-22 09:44] LABS: Triglycerides 429 mg/dl (30-150)
[2019-12-22 09:54] LABS: Chol/HDL Ratio 9.2 (1-3.5); Cholesterol 369 mg/dl (140-200)
== END ==
PROVIDERS: Visit Provider Emergency Medicine
DX: I50.30 Unspecified diastolic (congestive) heart failure (principal); I25.118 Atherosclerotic heart disease of native coronary artery with other forms of angina pectoris; I10 Essential (primary) hypertension; E78.00 Pure hypercholesterolemia, unspecified
CPT/HCPCS: 36415; 80053; 80061

== ENCOUNTER → 2020-01-18 16:17 | Outpatient (CLI) | payer BC, SELFPAY ==
[2020-01-18 17:04] LABS: Chloride 102 mmol/L (98-107); Potassium 4.1 mmoL/L (3.5-5.1); Sodium 138 mmol/L (136-145)
[2020-01-18 17:06] LABS: Alanine Aminotransferase 122 U/L (12-78); Amylase 48 U/L (30-110); Aspartate Amino Transferase 111 U/L (14-36); Blood Urea Nitrogen 18 mg/dl (7-17); Estimated Glomerular Filt Rate 57 ml/min (>60); GFR (African American) 69 ML/MIN (>60)
[2020-01-18 17:07] LABS: Albumin Level 4.3 g/dl (3.5-5.0); Albumin/Globulin Ratio 1.4 (1.1-1.8); Alkaline Phosphatase 107 U/L (38-126); Anion Gap 16.1 mEq/L (5-15); Bilirubin,Total 0.6 mg/dl (0.2-1.3); Calcium 9.9 mg/dl (8.4-10.2); Carbon Dioxide 24 mmol/L (22.0-30.0); Creatine Kinase 68 U/L (30-135); Glucose 103 mg/dl (74-100); Lipase 177 U/L (23-300); Total Protein,Serum 7.3 g/dl (6.3-8.2)
[2020-01-18 19:24] LABS: Basophils % 0.7 % (0.1-2.0); Eosinophils # 0.1 K/mm3 (0.0-0.4); Eosinophils % 2.8 % (0.1-12.0); Hematocrit 43.8 % (37.0-47.0); Hemoglobin 14.6 g/dL (12.2-16.2); Lymphocytes % 38.6 % (10-50); Mean Corpuscular HGB Conc 33.4 g/dL (31.8-35.4); Mean Corpuscular Hemoglobin 31.5 pg (27.0-31.2); Mean Corpuscular Volume 94.1 fl (81-99); Mean Platelet Volume 8.7 fl (7.4-10.4); Monocytes # 0.3 K/mm3 (0.1-1.0); Neutrophils # 2.7 K/mm3 (1.8-7.8); Neutrophils % 52.9 % (37.0-80.0); Platelet Count 278 K/mm3 (142-424); Red Blood Count 4.65 M/mm3 (4.20-5.40); Red Cell Distribution Width 12.9 % (11.5-17.5)
== END ==
PROVIDERS: Visit Provider Nurse Practitioner Family
DX: R10.12 Left upper quadrant pain (principal); R79.89 Other specified abnormal findings of blood chemistry
CPT/HCPCS: 36415; 80053; 82150; 82550; 83690; 85025

== ENCOUNTER → 2020-01-26 08:14 | Outpatient (CLI) | payer BC, SELFPAY ==
--- NOTE | 2020-01-26 08:21 | US_ITS ---
PROCEDURE: US LIVER CLINICAL INDICATION: ELEVATD LIVER ENZYMES COMPARISON: [id number] CT abdomen pelvis w con from 07/28/2018 FINDINGS: PANCREAS: Unremarkable. No obvious mass or abnormal fluid collection. No ductal dilatation LIVER: No focal liver lesions demonstrated. Homogeneous echogenicity. No intrahepatic biliary ductal dilatation evident. There is appropriate direction of blood flow within a non dilated portal vein. There is increased echogenicity of the liver with poor through transmission of sound consistent with hepatic steatosis. RIGHT KIDNEY: Unremarkable. Normal size and echogenicity. No hydronephrosis GALLBLADDER: No gallstones, gallbladder wall thickening, pericholecystic fluid, or biliary dilatation. IMPRESSION: Fatty liver otherwise negative Dictated by: Manjit Day MD 01/26/2020 11:06 Electronically signed by Manjit Day MD in [place] 01/26/2020 11:06
== END ==
PROVIDERS: PCP Internal Medicine Adolescent Medicine; Visit Provider Nurse Practitioner Family
DX: R74.8 Abnormal levels of other serum enzymes (principal)
CPT/HCPCS: 76705

== ENCOUNTER → 2020-03-10 08:47 | Outpatient (CLI) | payer BC, SELFPAY ==
[2020-03-10 10:11] LABS: Alanine Aminotransferase 106 U/L (12-78); Albumin Level 4.3 g/dl (3.5-5.0); Albumin/Globulin Ratio 1.4 (1.1-1.8); Alkaline Phosphatase 123 U/L (38-126); Anion Gap 13.3 mEq/L (5-15); Aspartate Amino Transferase 97 U/L (14-36); Bilirubin,Total 0.8 mg/dl (0.2-1.3); Blood Urea Nitrogen 18 mg/dl (7-17); Calcium 9.9 mg/dl (8.4-10.2); Carbon Dioxide 28 mmol/L (22.0-30.0); Chloride 101 mmol/L (98-107); Chol/HDL Ratio 5.1 (1-3.5); Cholesterol 240 mg/dl (140-200); Estimated Glomerular Filt Rate 74 ml/min (>60); GFR (African American) 90 ML/MIN (>60); Glucose 109 mg/dl (74-100); HDL Cholesterol 47 mg/dl (40-60); Potassium 4.3 mmoL/L (3.5-5.1); Sodium 138 mmol/L (136-145); Total Protein,Serum 7.3 g/dl (6.3-8.2); Triglycerides 242 mg/dl (30-150); VLDL Cholesterol 48 mg/dL (0-40)
[2020-03-10 10:22] LABS: Direct LDL Cholesterol 146.84 mg/dL (100-129)
== END ==
PROVIDERS: Visit Provider Nurse Practitioner Family
DX: R79.89 Other specified abnormal findings of blood chemistry (principal); E78.49 Other hyperlipidemia; Z78.9 Other specified health status
CPT/HCPCS: 36415; 80053; 80061

== ENCOUNTER → 2020-03-30 11:14 | Outpatient (CLI) | payer BC, SELFPAY ==
--- NOTE | 2020-03-30 11:20 | XR_ITS ---
PROCEDURE: XR LUMBAR SPINE MIN 4V CLINICAL INDICATION: SACRAL BACK PAIN,BACK STIFFNESS COMPARISON: CR LS5 LUMBAR SPINE 5 VIEWS from 03/12/2017 FINDINGS: Facet arthritic changes are present at L4-L5 and S1. There is normal alignment. No acute fracture or dislocation. 3 mm anterolisthesis L4 on L5 with mild degenerative disc disease at L4-5. Mild degenerative disc disease also present at L5-S1. IMPRESSION: Degenerative changes as described above. Dictated by: Manjit Day MD 03/30/2020 16:41 Manjit Day MD in [place] 03/30/2020 16:41
--- NOTE | 2020-03-30 11:20 | XR_ITS ---
PROCEDURE: XR PELVIS 1-2V CLINICAL INDICATION: SACRAL BACK PAIN,BACK STIFFNESS COMPARISON: No exams were available for comparison TECHNIQUE: XR Pelvis AP View FINDINGS: No fracture or dislocation is evident. There are moderate osteoarthritic changes involving both hips with osteosclerosis of the acetabular roof and osteophyte formation of the acetabulum and femoral head. A bone island is present in the right femoral neck. There is a separate calcific density at the lateral aspect of the acetabulum on the left measuring approximately 1 cm and may be due to an ununited ossification center/os acetabuli. There is mild hypertrophy of the right SI joint minimal sclerosis of the right SI joint. 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
== END ==
PROVIDERS: Visit Provider Nurse Practitioner Family
DX: M53.3 Sacrococcygeal disorders, not elsewhere classified (principal); M25.60 Stiffness of unspecified joint, not elsewhere classified
CPT/HCPCS: 72110; 72170

== ENCOUNTER → 2020-04-18 08:28 | Outpatient (CLI) | payer BC, SELFPAY ==
[2020-04-18 09:38] LABS: Chloride 101 mmol/L (98-107); Potassium 4.3 mmoL/L (3.5-5.1); Sodium 137 mmol/L (136-145)
[2020-04-18 09:41] LABS: Alanine Aminotransferase 101 U/L (12-78); Albumin Level 4.4 g/dl (3.5-5.0); Albumin/Globulin Ratio 1.5 (1.1-1.8); Alkaline Phosphatase 120 U/L (38-126); Anion Gap 13.3 mEq/L (5-15); Aspartate Amino Transferase 106 U/L (14-36); Bilirubin,Total 0.7 mg/dl (0.2-1.3); Blood Urea Nitrogen 17 mg/dl (7-17); Carbon Dioxide 27 mmol/L (22.0-30.0); Cholesterol 295 mg/dl (140-200); Estimated Glomerular Filt Rate 86 ml/min (>60); GFR (African American) 104 ML/MIN (>60); Total Protein,Serum 7.4 g/dl (6.3-8.2); Triglycerides 347 mg/dl (30-150); VLDL Cholesterol 69 mg/dL (0-40)
[2020-04-18 09:42] LABS: Calcium 9.8 mg/dl (8.4-10.2); Glucose 115 mg/dl (74-100)
[2020-04-18 09:53] LABS: Direct LDL Cholesterol 178.97 mg/dL (100-129)
[2020-04-18 15:22] LABS: Chol/HDL Ratio 6.6 (1-3.5); HDL Cholesterol 45 mg/dl (40-60)
== END ==
PROVIDERS: Visit Provider Emergency Medicine
DX: R07.2 Precordial pain (principal); E78.00 Pure hypercholesterolemia, unspecified; I34.0 Nonrheumatic mitral (valve) insufficiency
CPT/HCPCS: 36415; 80053; 80061; 83036

== ENCOUNTER → 2020-05-27 09:22 | Outpatient (CLI) | payer BC, SELFPAY ==
[2020-05-27 09:26] LABS: Microscopic, Urine URINE MICROSCOPIC (MICROSCOPIC)
[2020-05-27 10:06] LABS: Basophils # 0.1 K/mm3 (0-0.2); Eosinophils # 0.1 K/mm3 (0.0-0.4); Hematocrit 46.7 % (37.0-47.0); Hemoglobin 15.4 g/dL (12.2-16.2); Lymphocytes # 2.2 K/mm3 (0.7-4.5); Lymphocytes % 41.4 % (10-50); Mean Corpuscular HGB Conc 32.9 g/dL (31.8-35.4); Mean Corpuscular Hemoglobin 30.8 pg (27.0-31.2); Mean Corpuscular Volume 93.8 fl (81-99); Mean Platelet Volume 7.8 fl (7.4-10.4); Monocytes # 0.2 K/mm3 (0.1-1.0); Monocytes % 4.3 % (1.7-9.3); Neutrophils # 2.7 K/mm3 (1.8-7.8); Neutrophils % 51.2 % (37.0-80.0); Platelet Count 313 K/mm3 (142-424); Red Blood Count 4.99 M/mm3 (4.20-5.40); Red Cell Distribution Width 13.1 % (11.5-17.5); White Blood Count 5.2 K/mm3 (4.8-10.8)
[2020-05-27 10:08] LABS: Appearance,Urine CLEAR (Clear); Bilirubin,Urine Negative (Negative); Blood, Urine Negative (Negative); Color,Urine YELLOW (Yellow); Glucose,Urine (UA) Negative (Negative); Ketones,Urine Negative (Negative); Leukocyte Esterase,Urine Negative (Negative); Nitrate,Urine Negative (Negative); PH,Urine 7.5 (5.0-8.5); Protein,Urine Negative (Negative); Specific Gravity, Urine 1.015 (1.005-1.030); Urobilinogen,Urine 0.2 EU/dl (0.2)
[2020-05-27 11:11] LABS: Chloride 101 mmol/L (98-107); Potassium 4.4 mmoL/L (3.5-5.1); Sodium 137 mmol/L (136-145)
[2020-05-27 11:14] LABS: Alanine Aminotransferase 93 U/L (12-78); Albumin Level 4.5 g/dl (3.5-5.0); Albumin/Globulin Ratio 1.5 (1.1-1.8); Alkaline Phosphatase 121 U/L (38-126); Anion Gap 13.4 mEq/L (5-15); Aspartate Amino Transferase 90 U/L (14-36); Bilirubin,Total 0.8 mg/dl (0.2-1.3); Blood Urea Nitrogen 18 mg/dl (7-17); Carbon Dioxide 27 mmol/L (22.0-30.0); Estimated Glomerular Filt Rate 74 ml/min (>60); GFR (African American) 89 ML/MIN (>60); Glucose 105 mg/dl (74-100); Total Protein,Serum 7.5 g/dl (6.3-8.2)
[2020-05-27 11:40] LABS: Activated Partial Thrombo Time 27.2 seconds (23.6-34.0); INR 0.99 (0.9-1.1)
[2020-05-27 12:00] LABS: Bacteria,Urine 3+ /lpf; RBC,Urine Occasional #/hpf (0-3)
[2020-05-27 12:53] LABS: Hemoglobin A1C 5.5 % (4.0-6.0)
[2020-05-28 11:00] LABS: Prealbumin 39 mg/dL (10-36)
== END ==
PROVIDERS: Visit Provider Nurse Practitioner Family
DX: Z01.818 Encounter for other preprocedural examination (principal); M16.11 Unilateral primary osteoarthritis, right hip
CPT/HCPCS: 36415; 80053; 81001; 83036; 84134; 85025; 85610; 85730; 87086

== ENCOUNTER 2020-08-07 16:06 | Emergency (ER) | payer BC, SELFPAY ==
--- NOTE | 2020-08-07 16:24 | XR_ITS ---
PROCEDURE: XR FOOT RT MIN 3V Referring Doctor: Hilton Li Patient Age:55Y CLINICAL INDICATION: FALL Fall pain injury right foot and right the COMPARISON: CR XR ANKLE RT MIN 3V from 08/07/2020 TECHNIQUE: Three-view right foot;. And right ankle 3 View: AP, Oblique, Lateral FINDINGS: .... right ankle. 3 view: No prominent fracture. But there is only a tiny skylar of osseous density off the tip of the lateral malleolus which may reflect a very minor subtle avulsion flake fragment this is actually nicely seen on the right foot image set. Very prominent soft tissue swelling overlying the lateral malleolus on also reflecting the injury to the lateral ankle complex the but the medial ankle and medial malleolus intact. Dome of talus intact. Ankle mortise intact. Bones well mineralized. Right foot three view: The the metatarsals are intact. Toes intact. Tarsals with normal relationships but there may be some subtle sclerosis about the talar navicular articulation which could reflect some very early degenerative changes here but unimpressive. The of minimal spur at the insertion of Achilles tendon, 6 mm length. Minor plantar calcaneal spur 3 mm length. Again on the foot images a small flake fracture off the tip of lateral malleolus noted the the IMPRESSION: Right ankle:- . Prominent soft tissue swelling overlying the lateral malleolus reflecting recent injury . Tiny faint osseous skylar off the tip of lateral malleolus suspect for a a tiny flake fracture from the tip of the lateral malleolus;. . The ankle mortise intact. With normal relationships Right foot:- No additional acute findings at the right foot.. . Dictated by: Ryan Gonsalez MD 08/07/2020 22:56 Ryan Gnosalez MD in [place] 08/07/2020 22:56
[2020-08-07 16:34] VITALS: BP 136/74; PULSE 84; RESP 18; TEMP 36.7; O2SAT 97; BMI 27.3
--- NOTE | 2020-08-07 17:05 | HMH.EDUTC ---
[facility] – [place], [place] Disposition Clinical Impression: Closed right ankle fracture Qualifiers: Encounter type: initial encounter Qualified Code(s): S82.891A - Other fracture of right lower leg, initial encounter for closed fracture Fall Qualifiers: Encounter type: initial encounter Qualified Code(s): W19.XXXA - Unspecified fall, initial encounter Disposition: Home, Self-Care Condition on Discharge: Good Instructions: Ankle Fracture, DI for Ankle Fracture Additional Instructions: Rest the extremity, apply ice for 15 minutes as tolerated three or four times per day, Elevate the extremity as tolerated while you are resting. Take ibuprofen for pain. I sent in a prescription to your pharmacy. Follow up with Dr. Ball (podiatry). I put in a referral but you need to call his office and schedule an appointment. Follow up with your regular doctor. GO TO THE ER FOR ANY WORSENING SYMPTOMS Prescriptions: Ibuprofen [Ibuprofen 600mg Tablet] 600 mg PO Q6HP PRN #30 tab PRN Reason: Mild Pain Transmission Status: Received by [id number] Referrals: Kalia Payne MD [Primary Care Provider] - Time of Disposition: 17:39 Medical Decision Making - Medical Records Medical records reviewed: No: I reviewed the patient's medical records. - Clay Inquiry Pt receiving controlled substance: No Vital Signs: 08/07/20 16:34 08/07/20 17:44 Temperature 98.0 F 98.0 F Temperature Source Temporal Artery Scan Pulse Rate 84 Pulse Rate [Left Brachial] 84 Respiratory Rate 18 18 Blood Pressure 136/74 Blood Pressure [Left Arm] 136/74 Blood Pressure Mean [Left Arm] 94 Blood Pressure Source [Left Arm] Automatic Cuff Blood Pressure Position [Left Arm] Sitting 02 Sat by Pulse Oximetry 97 Oxygen Delivery Method Room Air Orders (Tests/Meds): ORDERS Category Date Time Status XR ankle RT min 3V Stat Exams 08/07/20 16:24 Taken XR foot RT min 3V Stat Exams 08/07/20 16:24 Taken - Radiology Data #1 Image(s): Ankle Image Reviewed: Yes I reviewed the patient's radiology image #2 Image(s): Foot/Toes Image Reviewed: Yes I reviewed the patient's radiology image [facility] – [place], [place] HPI - General Stated complaint: AO [id number] Rt ankle Time Seen by Provider: 08/07/20 17:05 Mode of Arrival: Ambulatory Source of Information: Patient Limitations: No Limitations Description of Symptoms (Recalled from Triage Doc. by RN): INJURY TO RIGHT ANKLE AND FOOT AFTER FALLING APPROX 1030 TODAY HEENT Symptoms (Recalled from RN notes): No Resp Symptoms (Recalled from RN notes): No Skin Symptoms (Recalled from RN notes): No MS Symptoms (Recalled from RN notes): Yes Functional Status (Recalled from RN notes): WNL - History of Present Illness Provider Complaint: She states that this morning at around 1030, she fell down her steps and hyperflexed her right foot and ankle. Since then she has had right ankle and foot pain and swelling. - Related Data Home Medications Medication Instructions Recorded Confirmed aspirin 81 mg tablet,delayed 81 mg PO DAILY 03/11/18 09/01/18 release hydrochlorothiazide 12.5 mg capsule 12.5 mg PO DAILY 03/11/18 09/01/18 metformin 500 mg tablet 500 mg PO HS tab 03/11/18 09/01/18 nebivolol 5 mg tablet 5 mg PO BID tab 03/11/18 09/01/18 rosuvastatin 20 mg tablet 40 mg PO HS tab 03/11/18 09/01/18 Ascorbate Calcium [Vitamin C] 500 mg PO DAILY 06/14/18 09/01/18 Estrogen,Richelle/Me-Testosterone 1 tab PO DAILY 06/14/18 09/01/18 [Estrogen-Methyltestos F.s. Tab] Ezetimibe 10 mg PO DAILY 06/14/18 09/01/18 Mv-Mn/Folic AC/Calcium/Vit K1 1 each PO DAILY 06/14/18 09/01/18 [Women's 50 Plus Multivit Tab] Omeprazole [Omeprazole 20mg 20 mg PO DAILY 06/14/18 09/01/18 Capsule] Ubidecarenone [Co Q-10] 200 mg PO DAILY 06/14/18 09/01/18 Previous Rx's Medication Instructions Recorded Ibuprofen [Ibuprofen 600mg 600 mg PO Q6HP PRN #30 tab 08/07/20 Tablet] Allergies Allergy/AdvReac Typ
[2020-08-07 17:44] VITALS: BP 136/74; PULSE 84; RESP 18; TEMP 36.7; O2SAT 97
== END 2020-08-07 17:49 | disposition home or self-care (01) ==
PROVIDERS: Emergency Provider Nurse Practitioner Family; PCP Internal Medicine Adolescent Medicine
DX: S82.64XA Nondisplaced fracture of lateral malleolus of right fibula, initial encounter for closed fracture (principal); W10.9XXA Fall (on) (from) unspecified stairs and steps, initial encounter; Y92.019 Unspecified place in single-family (private) house as the place of occurrence of the external cause; I10 Essential (primary) hypertension; E78.5 Hyperlipidemia, unspecified; I25.10 Atherosclerotic heart disease of native coronary artery without angina pectoris; Z79.899 Other long term (current) drug therapy
CPT/HCPCS: 29515; 73610; 73630; 99203; G0463

== ENCOUNTER → 2020-09-02 15:31 | Outpatient (CLI) | payer BC, SELFPAY ==
--- NOTE | 2020-09-02 15:35 | XR_ITS ---
PROCEDURE: XR ANKLE WT BEARING RT MIN 3V CLINICAL INDICATION: ankle pain COMPARISON: CR XR ANKLE RT MIN 3V from 08/07/2020 CR XR FOOT WT BEARING RT 3V from 09/02/2020 FINDINGS: Soft tissue swelling once again noted at the lateral malleolar region with a faint calcific density at the tip of the lateral malleolus which could be due to a small area of exostosis versus a small avulsion injury overall not significantly changed. The soft tissue swelling is shown some improvement. No acute fracture or dislocation of the foot. IMPRESSION: Persistent but improving soft tissue swelling laterally with questionable faint avulsion fracture at the tip of the lateral malleolus Dictated by: Manjit Day MD 09/02/2020 16:07 Manjit Day MD in [place] 09/02/2020 16:07
== END ==
PROVIDERS: PCP Internal Medicine Adolescent Medicine; Visit Provider Podiatrist
DX: M25.571 Pain in right ankle and joints of right foot (principal); S82.61XA Displaced fracture of lateral malleolus of right fibula, initial encounter for closed fracture; S93.491A Sprain of other ligament of right ankle, initial encounter
CPT/HCPCS: 73610; 73630

== ENCOUNTER → 2020-09-20 10:03 | Outpatient (CLI) | payer BC, SELFPAY ==
[2020-09-20 10:44] LABS: Hemoglobin A1C 5.9 % (4.0-6.0)
[2020-09-20 10:56] LABS: Alanine Aminotransferase 122 U/L (12-78); Albumin Level 4.5 g/dl (3.5-5.0); Albumin/Globulin Ratio 1.4 (1.1-1.8); Alkaline Phosphatase 108 U/L (38-126); Anion Gap 12.4 mEq/L (5-15); Aspartate Amino Transferase 148 U/L (14-36); Bilirubin,Total 0.6 mg/dl (0.2-1.3); Blood Urea Nitrogen 17 mg/dl (7-17); Calcium 9.5 mg/dl (8.4-10.2); Carbon Dioxide 25 mmol/L (22.0-30.0); Chloride 104 mmol/L (98-107); Cholesterol 251 mg/dl (140-200); Estimated Glomerular Filt Rate 74 ml/min (>60); GFR (African American) 89 ML/MIN (>60); Globulin 3.3 g/dL (1.3-3.2); Glucose 105 mg/dl (74-100); Potassium 4.4 mmoL/L (3.5-5.1); Sodium 137 mmol/L (136-145); Total Protein,Serum 7.8 g/dl (6.3-8.2)
== END ==
PROVIDERS: Visit Provider Emergency Medicine
DX: I25.10 Atherosclerotic heart disease of native coronary artery without angina pectoris (principal); R07.2 Precordial pain; I10 Essential (primary) hypertension; E78.00 Pure hypercholesterolemia, unspecified
CPT/HCPCS: 36415; 80053; 82465; 83036

== ENCOUNTER → 2020-09-21 13:15 | Outpatient (CLI) | payer BC, SELFPAY ==
[2020-09-23 11:57] LABS: Hep B Core Ab, Total Negative (Negative)
[2020-09-23 13:00] LABS: Hep A Ab, Total Positive (Negative); Hep B Surface Ab, Qual Reactive (.); Hepatitis C Antibody <0.1 s/co ratio (0.0-0.9)
== END ==
PROVIDERS: Visit Provider Emergency Medicine
DX: R94.5 Abnormal results of liver function studies (principal)
CPT/HCPCS: 36415; 86704; 86706; 86708; 87380

== ENCOUNTER → 2020-10-03 18:26 | Outpatient (CLI) | payer BC, SELFPAY ==
[2020-10-03 18:28] LABS: Microscopic, Urine URINE MICROSCOPIC (MICROSCOPIC)
[2020-10-03 20:45] LABS: Appearance,Urine CLEAR (Clear); Bilirubin,Urine Negative (Negative); Blood, Urine Negative (Negative); Color,Urine YELLOW (Yellow); Glucose,Urine (UA) Negative (Negative); Ketones,Urine Negative (Negative); Leukocyte Esterase,Urine Negative (Negative); Nitrate,Urine Negative (Negative); Protein,Urine Negative (Negative); Urobilinogen,Urine 0.2 EU/dl (0.2)
[2020-10-03 21:16] LABS: Bacteria,Urine 1+ /lpf
== END ==
PROVIDERS: Visit Provider Internal Medicine Adolescent Medicine
DX: R30.0 Dysuria (principal)
CPT/HCPCS: 81001; 87086; 87088; 87186

== ENCOUNTER → 2020-10-07 08:50 | Outpatient (CLI) | payer BC, SELFPAY ==
[2020-10-07 10:02] LABS: Alanine Aminotransferase 99 U/L (12-78); Albumin Level 4.4 g/dl (3.5-5.0); Albumin/Globulin Ratio 1.6 (1.1-1.8); Alkaline Phosphatase 94 U/L (38-126); Anion Gap 13.3 mEq/L (5-15); Aspartate Amino Transferase 112 U/L (14-36); Bilirubin,Total 0.6 mg/dl (0.2-1.3); Blood Urea Nitrogen 18 mg/dl (7-17); Calcium 9.6 mg/dl (8.4-10.2); Carbon Dioxide 24 mmol/L (22.0-30.0); Chloride 106 mmol/L (98-107); Estimated Glomerular Filt Rate 74 ml/min (>60); GFR (African American) 89 ML/MIN (>60); Globulin 2.7 g/dL (1.3-3.2); Glucose 103 mg/dl (74-100); Potassium 4.3 mmoL/L (3.5-5.1); Sodium 139 mmol/L (136-145); Total Protein,Serum 7.1 g/dl (6.3-8.2)
[2020-10-08 19:15] LABS: Alpha-1-Antitrypsin 121 mg/dL (101-187)
== END ==
PROVIDERS: Visit Provider Internal Medicine Adolescent Medicine
DX: R74.8 Abnormal levels of other serum enzymes (principal)
CPT/HCPCS: 36415; 80053; 82103

== ENCOUNTER → 2020-12-08 07:33 | Outpatient (CLI) | payer BC, SELFPAY ==
[2020-12-08 07:48] LABS: Basophils % 0.6 % (0.1-2.0); Eosinophils # 0.2 K/mm3 (0.0-0.4); Eosinophils % 3.2 % (0.1-12.0); Hematocrit 40.3 % (37.0-47.0); Hemoglobin 13.8 g/dL (12.2-16.2); Lymphocytes # 2.8 K/mm3 (0.7-4.5); Lymphocytes % 48.3 % (10-50); Mean Corpuscular HGB Conc 34.4 g/dL (31.8-35.4); Mean Corpuscular Hemoglobin 30.1 pg (27.0-31.2); Mean Corpuscular Volume 87.6 fl (81-99); Mean Platelet Volume 7.7 fl (7.4-10.4); Monocytes # 0.3 K/mm3 (0.1-1.0); Monocytes % 5.5 % (1.7-9.3); Neutrophils # 2.4 K/mm3 (1.8-7.8); Neutrophils % 42.3 % (37.0-80.0); Platelet Count 256 K/mm3 (142-424); Red Cell Distribution Width 14.1 % (11.5-17.5); White Blood Count 5.7 K/mm3 (4.8-10.8)
[2020-12-08 08:20] LABS: Hemoglobin A1C 5.6 % (4.0-6.0)
[2020-12-08 08:58] LABS: Chloride 102 mmol/L (98-107); Potassium 3.9 mmoL/L (3.5-5.1); Sodium 136 mmol/L (136-145)
[2020-12-08 09:00] LABS: Blood Urea Nitrogen 16 mg/dl (7-17); Estimated Glomerular Filt Rate 74 ml/min (>60); GFR (African American) 89 ML/MIN (>60)
[2020-12-08 09:01] LABS: Alanine Aminotransferase 64 U/L (12-78); Albumin Level 4.3 g/dl (3.5-5.0); Albumin/Globulin Ratio 1.5 (1.1-1.8); Alkaline Phosphatase 91 U/L (38-126); Anion Gap 12.9 mEq/L (5-15); Aspartate Amino Transferase 64 U/L (14-36); Bilirubin,Total 0.9 mg/dl (0.2-1.3); Calcium 9.1 mg/dl (8.4-10.2); Carbon Dioxide 25 mmol/L (22.0-30.0); Chol/HDL Ratio 5.5 (1-3.5); Cholesterol 215 mg/dl (140-200); Globulin 2.8 g/dL (1.3-3.2); Glucose 103 mg/dl (74-100); HDL Cholesterol 39 mg/dl (40-60); Total Protein,Serum 7.1 g/dl (6.3-8.2); Triglycerides 191 mg/dl (30-150); VLDL Cholesterol 38 mg/dL (0-40)
[2020-12-08 09:13] LABS: Direct LDL Cholesterol 128.93 mg/dL (100-129)
== END ==
PROVIDERS: Visit Provider Internal Medicine Adolescent Medicine
DX: I25.10 Atherosclerotic heart disease of native coronary artery without angina pectoris (principal); E78.2 Mixed hyperlipidemia; R73.03 Prediabetes
CPT/HCPCS: 36415; 80053; 80061; 83036; 84443; 85025

== ENCOUNTER → 2020-12-15 09:26 | Outpatient (CLI) | payer BC, SELFPAY ==
[2020-12-15 10:30] LABS: Iron 160 ug/dL (37-170)
[2020-12-15 10:35] LABS: INR 0.93 (0.9-1.1)
[2020-12-15 10:39] LABS: Total Iron Binding Capacity 426 ug/dL (265-497)
[2020-12-15 11:04] LABS: Ferritin 15.1 ng/ml (11.1-264)
[2020-12-16 05:12] LABS: Hepatitis B Surface Antigen Negative (Negative)
[2020-12-16 09:18] LABS: Ceruloplasmin 24.9 mg/dL (19.0-39.0); Immunoglobulin G, Qn 1021 mg/dL (586-1602)
[2020-12-16 16:40] LABS: Actin (Smooth Muscle) Antibody 9 Units (0-19); Antinuclear Antibodies, IFA Negative (.); Liver-Kidney Microsomal Ab <1.0 Units (0.0-20.0); Mitochondrial (M2) Antibody <20.0 Units (0.0-20.0)
== END ==
PROVIDERS: Visit Provider Physician Assistant
DX: R74.8 Abnormal levels of other serum enzymes (principal)
CPT/HCPCS: 36415; 81256; 82390; 82728; 82784; 83540; 83550; 85610; 86038; 86255; 86256; 86376; 87340

== ENCOUNTER → 2020-12-19 07:47 | Outpatient (CLI) | payer BC, SELFPAY ==
--- NOTE | 2020-12-19 07:52 | MM_ITS ---
PROCEDURE: MM DIG SCREENING MAMM BI W/CAD Digital Breast Tomosynthesis Included CLINICAL INDICATION: SCREENING COMPARISON: MG SCBI MM Dig screening mamm BI w/CAD from 01/02/2018 MG DXBI MM Dig mamm BI DX w/CAD from 01/28/2018 MG DXRT MM Dig mamm DX unilat RT CAD from 07/28/2018 TECHNIQUE: Standard CC and MLO images and 3D Tomosynthesis was obtained. R2 CAD reviewed. FINDINGS: Breast parenchyma is heterogeneously dense which may lower the sensitivity of mammography. Current mammograms show small focal asymmetry in the upper slightly outer subareolar right breast for which right breast digital diagnostic mammograms and limited right breast ultrasound are recommended. No other dominant mass. No suspicious type microcalcifications or indirect evidence of malignancy. IMPRESSION: Small focal asymmetry upper slightly outer subareolar right breast for which right breast digital diagnostic mammograms and limited right breast ultrasound are recommended. BI-RAD Category: 0 Need Additional Imaging Evaluation FOLLOW-UP: IMM Immediate Follow-up Recommended (A letter has been sent to the patient regarding results of the study.) Dictated by: Hilton Zhou MD 12/21/2020 07:29 Hilton Zhou MD in [place] 12/21/2020 07:29
== END ==
PROVIDERS: PCP Internal Medicine Adolescent Medicine; Visit Provider Internal Medicine Adolescent Medicine
DX: Z12.31 Encounter for screening mammogram for malignant neoplasm of breast (principal)
CPT/HCPCS: 77063; 77067

== ENCOUNTER → 2021-01-30 18:20 | Outpatient (CLI) | payer BC, SELFPAY | PROVIDERS: Visit Provider Nurse Practitioner Family | DX: R35.0 Frequency of micturition (principal) | CPT/HCPCS: 87086 ==

== ENCOUNTER → 2021-02-27 17:17 | Outpatient (CLI) | payer BC, SELFPAY ==
--- NOTE | 2021-02-27 17:22 | XR_ITS ---
PROCEDURE INFORMATION: Exam: XR Chest Exam date and time: 02/27/2021 5:22 PM Age: 55 years old Clinical indication: Wheezing; Patient HX: Weakness, covid testing; Additional info: Covid test TECHNIQUE: Imaging protocol: XR of the chest. Views: 1 view. COMPARISON: CR CXR2V XR chest 2V 06/14/2018 1:35 PM FINDINGS: Lungs: Unremarkable. No consolidation. Pleural spaces: Unremarkable. No pleural effusion. No pneumothorax. Heart/Mediastinum: Unremarkable. No cardiomegaly. Bones/joints: Unremarkable. IMPRESSION: No acute findings.
[2021-02-27 17:42] LABS: Coronavirus 19, PCR Not Detected (NotDetected); Influenza A, PCR Not Detected (NotDetected); Influenza B, PCR Not Detected (NotDetected)
[2021-02-27 17:55] LABS: Basophils # 0.1 K/mm3 (0-0.2); Basophils % 0.9 % (0.1-2.0); Chloride 104 mmol/L (98-107); Eosinophils # 0.2 K/mm3 (0.0-0.4); Eosinophils % 3.1 % (0.1-12.0); Hematocrit 41.7 % (37.0-47.0); Hemoglobin 13.6 g/dL (12.2-16.2); Lymphocytes # 2.3 K/mm3 (0.7-4.5); Lymphocytes % 39.3 % (10-50); Mean Corpuscular HGB Conc 32.7 g/dL (31.8-35.4); Mean Corpuscular Hemoglobin 30.5 pg (27.0-31.2); Mean Corpuscular Volume 93.3 fl (81-99); Mean Platelet Volume 8.4 fl (7.4-10.4); Monocytes # 0.3 K/mm3 (0.1-1.0); Monocytes % 4.5 % (1.7-9.3); Neutrophils % 52.2 % (37.0-80.0); Platelet Count 328 K/mm3 (142-424); Potassium 3.9 mmoL/L (3.5-5.1); Red Blood Count 4.47 M/mm3 (4.20-5.40); Red Cell Distribution Width 13.5 % (11.5-17.5); Sodium 140 mmol/L (136-145); White Blood Count 5.8 K/mm3 (4.8-10.8)
[2021-02-27 17:57] LABS: Blood Urea Nitrogen 16 mg/dl (7-17); Estimated Glomerular Filt Rate 65 ml/min (>60); GFR (African American) 78 ML/MIN (>60)
[2021-02-27 17:58] LABS: Alanine Aminotransferase 132 U/L (12-78); Albumin Level 4.6 g/dl (3.5-5.0); Albumin/Globulin Ratio 1.3 (1.1-1.8); Alkaline Phosphatase 81 U/L (38-126); Anion Gap 18.9 mEq/L (5-15); Aspartate Amino Transferase 177 U/L (14-36); Bilirubin,Total 0.5 mg/dl (0.2-1.3); Calcium 9.8 mg/dl (8.4-10.2); Carbon Dioxide 21 mmol/L (22.0-30.0); Globulin 3.5 g/dL (1.3-3.2); Glucose 145 mg/dl (74-100); Total Protein,Serum 8.1 g/dl (6.3-8.2)
== END ==
PROVIDERS: PCP Internal Medicine Adolescent Medicine; Visit Provider Internal Medicine Adolescent Medicine
DX: Z20.822 Contact with and (suspected) exposure to COVID-19 (principal); R50.9 Fever, unspecified; R53.81 Other malaise; R53.83 Other fatigue
CPT/HCPCS: 71045; 80053; 85025; U0003

== ENCOUNTER 2021-03-05 09:12 | Emergency (ER) | payer BC, SELFPAY ==
[2021-03-05 09:36] VITALS: BP 150/70; PULSE 80; RESP 14; TEMP 36.6; O2SAT 95; BMI 31.4
[2021-03-05 09:39] VITALS: BP 150/70; PULSE 80; RESP 18; TEMP 36.6
[2021-03-05 09:44] LABS: Apearance,Urine Cloudy (Clear); Color,Urine Orange (Yellow); Protein,Urine 2+ (Negative)
[2021-03-05 09:45] LABS: Bilirubin,Urine 1+ (Negative); Blood, Urine 4+ (Negative); Glucose,Urine (UA) Trace (Negative); Ketones,Urine SMALL (Negative); UTC Leukocyte Esterase,Urine 3+ (Negative); UTC Nitrate,Urine Positive (Negative); Urobilinogen,Urine 4 EU/dl (0.2)
--- NOTE | 2021-03-05 09:54 | HMH.EDUTC ---
[facility] – [place] Disposition Clinical Impression: Interstitial cystitis UTI (urinary tract infection) Qualifiers: Urinary tract infection type: acute cystitis Hematuria presence: with hematuria Qualified Code(s): N30.01 - Acute cystitis with hematuria Disposition: Home, Self-Care Condition on Discharge: Good Instructions: DI for Urinary Tract Infection (UTI) Additional Instructions: Your urine has been sent for culture. Dr Payne should be able to view this Saturday to make sure the antibiotics I have sent are appropriate. Prescriptions: Ciprofloxacin HCl [Cipro 500mg Tab] 500 mg PO BID 5 Days #10 tab Transmission Status: Pending to [facility] Phenazopyridine HCl [Pyridium 200mg Tablet] 200 pow PO TID #6 tab Transmission Status: Pending to [facility] Referrals: Kalia Payne MD [Primary Care Provider] - Time of Disposition: 09:58 Medical Decision Making - Clay Inquiry Pt receiving controlled substance: No Vital Signs: 03/05/21 09:36 03/05/21 09:39 Temperature 98 F 98 F Temperature Source Oral Pulse Rate 80 Pulse Rate [Left] 80 Respiratory Rate 14 18 Blood Pressure 150/70 H Blood Pressure [Right Arm] 150/70 H Blood Pressure Mean [Right Arm] 96 02 Sat by Pulse Oximetry 95 - Lab Data Lab results reviewed: Yes: I reviewed the patient's lab results. Lab Results 03/05/21 09:43: Urine Color Lewis, Urine Appearance Cloudy, Urine pH 5.0, Ur Specific [place] 1.020, Urine Protein 2+, Urine Glucose (UA) Trace, Urine Ketones Small, Urine Blood 4+, Urine Nitrate Positive A, Urine Bilirubin 1+ A, Urine Urobilinogen 4, Ur Leukocyte Esterase 3+ A Orders (Tests/Meds): ORDERS Category Date Time Status Urine Culture Stat Micro 03/05/21 09:43 Ordered [facility] [place] HPI - General Stated complaint: bladder infection Time Seen by Provider: 03/05/21 09:54 Mode of Arrival: Ambulatory Source of Information: Patient Limitations: No Limitations Description of Symptoms (Recalled from Triage Doc. by RN): pt c/o of burning with urination. HEENT Symptoms (Recalled from RN notes): No Resp Symptoms (Recalled from RN notes): No Skin Symptoms (Recalled from RN notes): No MS Symptoms (Recalled from RN notes): No Functional Status (Recalled from RN notes): na - History of Present Illness Provider Complaint: Dysuria X 2-3 days. No fever. Has history of IC as well so has been trying to use AZO with no relief of symptoms. Pain is moderately severe and she cannot sleep. No nausea/vomiting. Last urine culture grew E. Coli Onset (ago): day(s) (3) Quality: burning Consistency: constant Relieving factors: none Exacerbating factors: none Associated symptoms: denies other symptoms Treatments prior to arrival: other (AZO) - Related Data Home Medications Medication Instructions Recorded Confirmed aspirin 81 mg tablet,delayed 81 mg PO DAILY 03/11/18 09/05/20 release hydrochlorothiazide 12.5 mg capsule 12.5 mg PO DAILY 03/11/18 09/05/20 nebivolol 5 mg tablet 5 mg PO BID tab 03/11/18 09/05/20 Ascorbate Calcium [Vitamin C] 500 mg PO DAILY 06/14/18 09/05/20 Estrogen,Richelle/Me-Testosterone 1 tab PO DAILY 06/14/18 09/05/20 [Estrogen-Methyltestos F.s. Tab] Mv-Mn/Folic AC/Calcium/Vit K1 1 each PO DAILY 06/14/18 09/05/20 [Women's 50 Plus Multivit Tab] Omeprazole [Omeprazole 20mg 20 mg PO DAILY 06/14/18 09/05/20 Capsule] Ubidecarenone [Co Q-10] 200 mg PO DAILY 06/14/18 09/05/20 cyclobenzaprine 5 mg tablet 5 mg PO tab 08/08/20 09/05/20 estradiol 0.1 mg/24 hr semiweekly patch TRANSDERMA 08/08/20 09/05/20 transdermal patch evolocumab 140 mg/mL subcutaneous ml SQ 08/08/20 09/05/20 pen injector icosapent ethyl 1 gram capsule cap PO 08/08/20 09/05/20 Previous Rx's Medication Instructions Recorded Ibuprofen [Ibuprofen 600mg 600 mg PO Q6HP PRN #30 tab 08/07/20 Tablet] Ciprofloxacin HCl [Cipro 500mg 500 mg PO BID 5 Days #10 tab 03/05/21 Tab] Phenazop
== END 2021-03-05 10:10 | disposition home or self-care (01) ==
PROVIDERS: Emergency Provider Physician Assistant; PCP Internal Medicine Adolescent Medicine
DX: N30.11 Interstitial cystitis (chronic) with hematuria (principal); I25.10 Atherosclerotic heart disease of native coronary artery without angina pectoris; E11.9 Type 2 diabetes mellitus without complications; E78.5 Hyperlipidemia, unspecified; I10 Essential (primary) hypertension
CPT/HCPCS: 81003; 87086; 87088; 87186; 96372; 99202; G0463

== ENCOUNTER → 2021-03-24 08:32 | Outpatient (CLI) | payer BC, SELFPAY ==
--- NOTE | 2021-03-24 08:39 | US_ITS ---
PROCEDURE: US ABDOMEN LIMITED CLINICAL INDICATION: RT UPPER QUAD PAIN,ELEVATED LIVER ENZYMES COMPARISON: No exams were available for comparison FINDINGS: PANCREAS: Unremarkable. No obvious mass or abnormal fluid collection. No ductal dilatation LIVER: Diffuse increased echogenicity of the liver with poor through transmission of sound consistent with hepatic steatosis. No focal liver lesion demonstrated. There is appropriate direction of blood flow within non dilated portal vein. RIGHT KIDNEY: Unremarkable. Normal size and echogenicity. No hydronephrosis GALLBLADDER: No gallstones, gallbladder wall thickening, pericholecystic fluid, or biliary dilatation. IMPRESSION: Fatty liver otherwise negative right upper quadrant ultrasound Dictated by: Manjit Day MD 03/24/2021 13:35 Manjit Day MD in [place] 03/24/2021 13:35
== END ==
PROVIDERS: PCP Internal Medicine Adolescent Medicine; Visit Provider Nurse Practitioner Family
DX: R10.11 Right upper quadrant pain (principal); R74.8 Abnormal levels of other serum enzymes
CPT/HCPCS: 76705

== ENCOUNTER → 2021-04-26 07:29 | Outpatient (CLI) | payer BC, SELFPAY ==
[2021-04-26 07:55] LABS: Basophils % 0.8 % (0.1-2.0); Eosinophils # 0.3 K/mm3 (0.0-0.4); Eosinophils % 4.7 % (0.1-12.0); Lymphocytes # 2.5 K/mm3 (0.7-4.5); Lymphocytes % 45.6 % (10-50); Mean Corpuscular HGB Conc 31.9 g/dL (31.8-35.4); Mean Corpuscular Hemoglobin 30.1 pg (27.0-31.2); Mean Corpuscular Volume 94.3 fl (81-99); Mean Platelet Volume 7.5 fl (7.4-10.4); Monocytes # 0.2 K/mm3 (0.1-1.0); Monocytes % 4.4 % (1.7-9.3); Neutrophils # 2.4 K/mm3 (1.8-7.8); Neutrophils % 44.5 % (37.0-80.0); Platelet Count 289 K/mm3 (142-424); Red Blood Count 4.67 M/mm3 (4.20-5.40); Red Cell Distribution Width 12.9 % (11.5-17.5); White Blood Count 5.4 K/mm3 (4.8-10.8)
[2021-04-26 08:29] LABS: Chloride 102 mmol/L (98-107); Sodium 140 mmol/L (136-145)
[2021-04-26 08:30] LABS: Potassium 4.6 mmoL/L (3.5-5.1)
[2021-04-26 08:32] LABS: Alanine Aminotransferase 77 U/L (12-78); Alkaline Phosphatase 94 U/L (38-126); Anion Gap 15.6 mEq/L (5-15); Aspartate Amino Transferase 74 U/L (14-36); Bilirubin,Total 0.2 mg/dl (0.2-1.3); Blood Urea Nitrogen 13 mg/dl (7-17); Carbon Dioxide 27 mmol/L (22.0-30.0); Cholesterol 121 mg/dl (140-200); Estimated Glomerular Filt Rate 74 ml/min (>60); GFR (African American) 89 ML/MIN (>60); Triglycerides 317 mg/dl (30-150); VLDL Cholesterol 63 mg/dL (0-40)
[2021-04-26 08:33] LABS: Albumin Level 4.1 g/dl (3.5-5.0); Albumin/Globulin Ratio 1.4 (1.1-1.8); Calcium 9.4 mg/dl (8.4-10.2); Glucose 112 mg/dl (74-100); HDL Cholesterol 30 mg/dl (40-60); Total Protein,Serum 7.1 g/dl (6.3-8.2)
[2021-04-26 08:41] LABS: Hemoglobin A1C 7.6 % (4.0-6.0)
[2021-04-26 08:44] LABS: Direct LDL Cholesterol 41.14 mg/dL (100-129)
[2021-05-02 13:10] LABS: Deamidated Gliadin Abs, IgA 7 units (0-19); Deamidated Gliadin Abs, IgG 1 units (0-19)
== END ==
PROVIDERS: Visit Provider Internal Medicine Adolescent Medicine
DX: I25.10 Atherosclerotic heart disease of native coronary artery without angina pectoris (principal); E78.2 Mixed hyperlipidemia; R73.03 Prediabetes
CPT/HCPCS: 36415; 80053; 80061; 83036; 83516; 85025

== ENCOUNTER → 2021-05-01 11:04 | Outpatient (CLI) | payer BC, SELFPAY | PROVIDERS: Visit Provider Internal Medicine Adolescent Medicine | DX: E11.9 Type 2 diabetes mellitus without complications (principal); K52.9 Noninfective gastroenteritis and colitis, unspecified ==

== ENCOUNTER 2021-05-02 12:00 | Emergency (ER) | payer BC, SELFPAY ==
[2021-05-02 12:01] VITALS: BP 134/56; PULSE 78; RESP 16; TEMP 37; O2SAT 98; BMI 33.6
--- NOTE | 2021-05-02 12:15 | CT_ITS ---
PROCEDURE: CT ABDOMEN PELVIS W CON CLINICAL INDICATION: right sided abdominal pain COMPARISON: CT ABDPELW CT abdomen pelvis w con from 07/28/2018 TECHNIQUE: IV Contrast: 75ML OPTIRAY 350 Oral Contrast none given Axial images obtained with sagittal and coronal reformats. All CT scans at the facility use one or more dose reduction, viz: automated exposure control, ma/kV adjustment per patient size (including targeted exams where dose is matched to indication, i.e. head), or iterative reconstruction technique. FINDINGS: Lower thorax: The lower lung miranda are clear, there is no pleural fluid. ABDOMEN: Liver: No masses or biliary dilatation. Gallbladder: Nondistended. No radio opaque stones. Pancreas: No masses or peripancreatic fluid collections. Spleen: unremarkable Adrenals: unremarkable Kidneys/ureters: The kidneys are normal in size and show symmetrical function both appearing normal. ABDOMEN & PELVIS: Stomach bowel: Nondistended. No obvious mass or thickening. The small bowel appears normal. There is a moderately large amount of stool in the cecum and ascending colon and hepatic flexure, the descending and sigmoid colon are decompressed. Peritoneum: No abnormal fluid collections. No obvious inflammatory changes. No free air. The small ventral or umbilical hernia seen on the previous study is not seen and presumably has been repaired. Lymph nodes: No enlarged lymph nodes apparent. Vasculature: No evidence of abdominal aortic aneurysm there is minimal arthrosclerotic calcifications of the infrarenal aorta but there is no aneurysm. Bones: No acute fracture PELVIS: Reproductive: Post hysterectomy Bladder: Moderately distended with urine and appearing normal. There is no free fluid in the pelvis. There is streak artifact crossing the lower pelvis from the total hip prosthesis right-side Appendix: Post appendectomy IMPRESSION: No definite acute abdominal or pelvic pathology identified, prominent right-sided stool as indicated Dictated by: Dr. Livan Gates MD 05/02/2021 13:09 Dr. Livan Gates MD in [place] 05/02/2021 13:09
--- NOTE | 2021-05-02 12:17 | HMH.EDGENADL ---
ED Disposition Clinical Impression: Gastritis Qualifiers: Gastritis type: other gastritis Chronicity: acute Gastritis bleeding: without bleeding Qualified Code(s): K29.00 - Acute gastritis without bleeding Disposition: Home, Self-Care Condition on Discharge: Good Instructions: DI for Acute Abdominal Pain Prescriptions: Sucralfate [Carafate 1gm/10mL Susp] 1 gm PO ACHS #200 ml Transmission Status: Pending to [id number] Referrals: Hilton Richard MD [Primary Care Provider] - - Critical Care Critical Care Time: No Attestation: On 05/02/21, the high probability of a clinically significant, sudden or life threatening deterioration of the following system(s) required my full and direct attention, intervention and personal management. The time I documented below is in addition to time spent performing reported procedures but includes the following listed in this critical care notation. Medical Decision Making - Medical Records Medical records reviewed: Yes: I reviewed the patient's medical records. - Clay Inquiry Pt receiving controlled substance: No Vital Signs: 05/02/21 12:01 Temperature 98.6 F Temperature Source Oral Pulse Rate [Radial] 78 Respiratory Rate 16 Blood Pressure [Right Arm] 134/56 L Blood Pressure Mean [Right Arm] 82 Blood Pressure Position [Right Arm] Sitting 02 Sat by Pulse Oximetry 98 Oxygen Delivery Method Room Air - Lab Data Lab Results 05/02/21 12:10: WBC 6.9, RBC 4.53, Hgb 14.2, Hct 42.2, MCV 93.3, MCH 31.3 H, MCHC 33.6, RDW 13.5, Plt Count 294, MPV 8.6, Neut % (Auto) 58.6, Lymph % (Auto) 31.8, [place] % (Auto) 5.2, Eos % (Auto) 3.4, Baso % (Auto) 1.0, Neut # (Auto) 4.1, Lymph # (Auto) 2.2, [place] # (Auto) 0.4, Eos # (Auto) 0.2, Baso # (Auto) 0.1 05/02/21 12:10: Sodium 139, Potassium 4.5, Chloride 102, Carbon Dioxide 27, Anion Gap 14.5, BUN 15, Creatinine 0.60, Estimated Creat Clear 139, Estimated GFR 103, Est GFR ( Amer) 124, Glucose 114 H, Calcium 9.5, Magnesium 1.7, Total Bilirubin 0.4, AST 75 H, ALT 62, Alkaline Phosphatase 89, Total Protein 8.0, Albumin 4.2, Globulin 3.8 H, Albumin/Globulin Ratio 1.1, Lipase 169 05/02/21 12:10: Serum HCG, Qual Negative 05/02/21 12:10: PT 11.2, INR 0.99 05/02/21 12:10: Troponin I < 0.01 05/02/21 13:35: Urine Color Yellow, Urine Appearance Sl cloudy, Urine pH 7.0, Ur Specific [place] 1.010, Urine Protein Negative, Urine Glucose (UA) Negative, Urine Ketones Negative, Urine Blood Negative, Urine Nitrate Negative, Urine Bilirubin Negative, Urine Urobilinogen 0.2, Ur Leukocyte Esterase Negative, Urine RBC None, Urine WBC Occasional, Ur Squamous Epith Cells Occasional, Urine Bacteria None Result diagrams: 05/02/21 12:10 05/02/21 12:10 Orders (Tests/Meds): ED MEDICATIONS Discontinued Medications Generic Name Dose Route Start Last Admin Trade Name Londonq PRN Reason Stop Dose Admin Belladonna Alkaloids 60 ml 05/02/21 14:21 05/02/21 14:24 Gi Cocktail 60ml Udc PO 05/02/21 14:22 60 ml ONCE ONE Administration Sodium Chloride 1,000 mls @ 999 mls/hr 05/02/21 12:30 05/02/21 12:25 Sod Chlor 0.9% 1000ml Bag IV 05/02/21 13:30 999 mls/hr .Q1H1M CADEN Administration Iopamidol 75 ml 05/02/21 12:39 05/02/21 12:40 Iopamidol-370 (76%);100ml Bottle IV 05/02/21 12:40 75 ml ONCE ONE Administration Morphine Sulfate 4 mg 05/02/21 12:18 05/02/21 12:26 Morphine 4mg/Ml Syringe IV 05/02/21 12:19 4 mg ONCE ONE Administration Ondansetron HCl 4 mg 05/02/21 12:18 05/02/21 12:26 Ondansetron 4mg/2ml Vial IV 05/02/21 12:19 4 mg ONCE ONE Administration Sodium Chloride 10 ml 05/02/21 12:39 05/02/21 12:40 Sodium Chloride 0.9% 10ml Syr (Rad Only) IV 05/02/21 12:40 10 ml ONCE ONE Administration ORDERS Category Date Time Status US RUQ [US abdomen limited] Stat Exams 05/02/21 13:19 Taken Troponin I Q3H Lab 05/02/21 16:30 Ordered Troponin I Q3H Lab 05/02/21 19:30 Ordered EKG Request [ECG Req
[2021-05-02 12:25] LABS: Basophils # 0.1 K/mm3 (0-0.2); Eosinophils # 0.2 K/mm3 (0.0-0.4); Eosinophils % 3.4 % (0.1-12.0); Hematocrit 42.2 % (37.0-47.0); Hemoglobin 14.2 g/dL (12.2-16.2); Lymphocytes # 2.2 K/mm3 (0.7-4.5); Lymphocytes % 31.8 % (10-50); Mean Corpuscular HGB Conc 33.6 g/dL (31.8-35.4); Mean Corpuscular Hemoglobin 31.3 pg (27.0-31.2); Mean Corpuscular Volume 93.3 fl (81-99); Mean Platelet Volume 8.6 fl (7.4-10.4); Monocytes # 0.4 K/mm3 (0.1-1.0); Monocytes % 5.2 % (1.7-9.3); Neutrophils # 4.1 K/mm3 (1.8-7.8); Neutrophils % 58.6 % (37.0-80.0); Platelet Count 294 K/mm3 (142-424); Red Blood Count 4.53 M/mm3 (4.20-5.40); Red Cell Distribution Width 13.5 % (11.5-17.5); White Blood Count 6.9 K/mm3 (4.8-10.8)
[2021-05-02 12:32] LABS: INR 0.99 (0.9-1.1); Prothrombin Time 11.2 seconds (10.1-12.5)
--- NOTE | 2021-05-02 12:35 | PC.NURSE ---
pt return from radiology
[2021-05-02 13:00] VITALS: BP 137/72; PULSE 75; RESP 16; O2SAT 93
[2021-05-02 13:05] LABS: Alanine Aminotransferase 62 U/L (12-78); Albumin Level 4.2 g/dl (3.5-5.0); Albumin/Globulin Ratio 1.1 (1.1-1.8); Alkaline Phosphatase 89 U/L (38-126); Anion Gap 14.5 mEq/L (5-15); Aspartate Amino Transferase 75 U/L (14-36); Bilirubin,Total 0.4 mg/dl (0.2-1.3); Blood Urea Nitrogen 15 mg/dl (7-17); Calcium 9.5 mg/dl (8.4-10.2); Carbon Dioxide 27 mmol/L (22.0-30.0); Chloride 102 mmol/L (98-107); Creatinine Clearance Estimated 139 mL/min (50-200); Estimated Glomerular Filt Rate 103 ml/min (>60); GFR (African American) 124 ML/MIN (>60); Globulin 3.8 g/dL (1.3-3.2); Glucose 114 mg/dl (74-100); HCG Qualitative, Serum Negative (Negative); Lipase 169 U/L (23-300); Magnesium 1.7 mg/dl (1.6-2.3); Potassium 4.5 mmoL/L (3.5-5.1); Sodium 139 mmol/L (136-145)
--- NOTE | 2021-05-02 13:19 | US_ITS ---
PROCEDURE: US ABDOMEN LIMITED CLINICAL INDICATION: RUQ pain Right upper quadrant pain with nausea and vomiting for a month. COMPARISON: US US ABDOMEN LIMITED from 03/24/2021 FINDINGS: Pancreas not visualized due to bowel gas. Visualized extent of the liver appears unremarkable. The right kidney is partially visualized and exhibits renal cortical thinning. Visualized extent of the gallbladder appears unremarkable. The cystic duct was not visualized. A small segment of the common duct was visualized which appears unremarkable. IMPRESSION: 1. Visualized extent of the gallbladder appears unremarkable and visualized extent of common bile duct is not dilated. 2. Renal cortical thinning suggestive of medical renal disease. Dictated by: Jessica Good MD 05/02/2021 14:56 Jessica Good MD in [place] 05/02/2021 14:56
[2021-05-02 13:30] VITALS: BP 130/66; PULSE 75; O2SAT 98
--- NOTE | 2021-05-02 13:31 | ECG_ITS ---
APPROVED REPORT Exam: Resting ECG HR:67 bpm ECG Measurements Heart Rate 67 AXES [place] 176 P 49 QRSd 86 QRS 67 QT 430 T 76 QTc 454 Conclusion Normal sinus rhythm Normal ECG Electronically signed by : Kalia Payne MD 05/05/2021 14:31:16
[2021-05-02 13:40] LABS: Microscopic, Urine URINE MICROSCOPIC (MICROSCOPIC)
[2021-05-02 13:44] LABS: Appearance,Urine SL CLOUDY (Clear); Bilirubin,Urine Negative (Negative); Blood, Urine Negative (Negative); Color,Urine YELLOW (Yellow); Glucose,Urine (UA) Negative (Negative); Ketones,Urine Negative (Negative); Leukocyte Esterase,Urine Negative (Negative); Nitrate,Urine Negative (Negative); Protein,Urine Negative (Negative); Urobilinogen,Urine 0.2 EU/dl (0.2)
[2021-05-02 13:47] LABS: Troponin I < 0.01 ng/ml (0.00-0.034)
[2021-05-02 13:56] LABS: Squamous Epithelial Cell,Urine Occasional #/hpf (0-5); WBC,Urine Occasional #/hpf (0-3)
[2021-05-02 14:30] VITALS: BP 117/56; PULSE 72; O2SAT 96
[2021-05-02 15:00] VITALS: BP 133/77; PULSE 72; RESP 16; O2SAT 94
[2021-05-02 15:31] VITALS: BP 132/74; PULSE 74; RESP 16; TEMP 36.6; O2SAT 98
== END 2021-05-02 15:32 | disposition home or self-care (01) ==
PROVIDERS: Emergency Provider Student in an Organized Health Care Education/Training Program; PCP Internal Medicine Adolescent Medicine
DX: K29.00 Acute gastritis without bleeding (principal); I25.10 Atherosclerotic heart disease of native coronary artery without angina pectoris; I10 Essential (primary) hypertension; E11.9 Type 2 diabetes mellitus without complications; E78.5 Hyperlipidemia, unspecified
CPT/HCPCS: 74177; 76705; 80053; 81001; 83690; 83735; 84484; 84703; 85025; 85610; 93005; 96375; 99283; J2405; Q9967

== ENCOUNTER → 2021-06-20 12:53 | Outpatient (CLI) | payer BC, SELFPAY ==
--- NOTE | 2021-06-20 12:56 | MM_ITS ---
PROCEDURE INFORMATION: Exam: US Right Breast, Complete MG Right Diagnostic Breast Tomosynthesis Exam date and time: 06/20/2021 12:56 PM Age: 56 years old Clinical indication: Short-term radiographic follow-up for right breast asymmetry TECHNIQUE: Imaging protocol: Complete ultrasound of all four quadrants of the Right breast and the retroareolar regions, including ultrasound of the axilla when performed. Right Diagnostic tomosynthesis and 2D mammography including computer-aided detection (CAD) when performed. Unilateral or bilateral exam. COMPARISON: 1. MG MM DIG SCREENING MAMM BI W/CAD 12/19/2020 8:06 AM 2. MG DXRT MM Dig mamm DX unilat RT CAD 07/28/2018 2:49 PM FINDINGS: MAMMOGRAPHY: The breast tissue is composed of scattered areas of fibroglandular density. There is no stellate mass, architectural distortion or suspicious microcalcifications to suggest malignancy. Additional spot compression views of the right upper outer quadrant demonstrates stable slightly nodular tissue asymmetry measuring approximately 1 cm in greatest dimension. No skin thickening or axillary adenopathy. ULTRASOUND: Sonographic images of the right breast including the retroareolar region, all 4 quadrants and the axilla do not demonstrate any solid masses. Cluster cysts with a combined dimension of 0.8 cm is noted in the middle third of the right 9 o'clock axis corresponding to the slight tissue asymmetry on mammography. No architectural distortion or acoustical shadowing. No skin thickening or axillary adenopathy. IMPRESSION: No mammographic or sonographic evidence of malignancy. Benign cystic change in the right lateral breast.Annual bilateral mammographic screening is recommended in 6 months unless otherwise clinically indicated. ASSESSMENT: BI-RADS Category 2: Benign
== END ==
PROVIDERS: PCP Internal Medicine Adolescent Medicine; Visit Provider Internal Medicine Adolescent Medicine
DX: R92.8 Other abnormal and inconclusive findings on diagnostic imaging of breast (principal)
CPT/HCPCS: 76641; 77061; 77065; G0279

== ENCOUNTER 2021-09-04 15:52 | Emergency (ER) | payer BC, SELFPAY ==
[2021-09-04 16:42] VITALS: BP 133/90; PULSE 102; RESP 22; TEMP 37.2; O2SAT 98; BMI 31.9
--- NOTE | 2021-09-04 16:46 | HMH.EDUTC ---
[facility] [place] Clinical Impression: Strep throat Disposition: Home, Self-Care Condition on Discharge: Good Instructions: Strep Throat, DI for Strep Throat Additional Instructions: *Monitor Temp, Over the counter Motrin or Tylenol as directed/as needed Tylenol every 4 hours and Motrin every 6 hours (as long as your family doctor has told you that you can take it) for fever or pain. and straight to ER if unable to lower temp less than 101.0 after medication given *Warm salt water gargles may help to soothe the throat *Throat Lozenges *Warm fluids like tea with honey may help to soothe the throat *Sleep elevated *Humidifier/Vaporizer *If you did not take Penicillin shot or was unable to, start taking antibiotic immediately and make sure that you take it for the FULL length of time although you should start to feel better in 24-48 hours *change toothbrush and toothpaste 24-48 hours after starting to take antibiotics so you do not reinfect yourself Monitor Temp. Tylenol and/or Ibuprofen as needed. ER if fever is no less than 101 despite alternating Tylenol and Ibuprofen * Encourage fluids, water, Gatorade, powerade, pedialyte if infant/toddler/or child *Cold fluids, popsicles and ice cream may feel good on his throat Follow up IMMEDIATELY for new or worsening symptoms or no Noticeable improvement over the next 48-72 hours. 911 for difficulty breathing or swallowing Prescriptions: Amoxicillin [Amoxicillin 500mg Cap] 500 mg PO TID #30 cap Transmission Status: Received by [id number] Ondansetron [Zofran 4mg ODT] 4 mg PO TIDP PRN #[id number] tab PRN Reason: Nausea Transmission Status: Received by [id number] Referrals: Kalia Payne MD [Primary Care Provider] - As needed Time of Disposition: 17:07 Medical Decision Making - Clay Inquiry Pt receiving controlled substance: No Clay was queried for this patient: No Vital Signs: 09/04/21 16:42 Temperature 99.0 F Temperature Source Oral Pulse Rate [Right Radial] 127 H Respiratory Rate 22 Blood Pressure [Right Arm] 133/90 Blood Pressure Mean [Right Arm] 104 Blood Pressure Source [Right Arm] Automatic Cuff Blood Pressure Position [Right Arm] Sitting 02 Sat by Pulse Oximetry 98 Oxygen Delivery Method Room Air - Lab Data Lab results reviewed: Yes: I reviewed the patient's lab results. Lab Results 09/04/21 16:40: Strep Scn Rapid Clinic Positive A Orders (Tests/Meds): ED MEDICATIONS Discontinued Medications Generic Name Dose Route Start Last Admin Trade Name Rafia PRN Reason Stop Dose Admin Ketorolac Tromethamine 30 mg 09/04/21 16:51 09/04/21 17:04 Ketorolac 60mg/2ml Vial IM 09/04/21 16:52 30 mg ONCE ONE Administration Ondansetron HCl 4 mg 09/04/21 16:52 09/04/21 17:03 Ondansetron 4mg/2ml Vial IM 09/04/21 16:53 4 mg ONCE ONE Administration Medical Decision Narrative: Medication discussed and dosed per pharmacy Patient states that she is feeling better after medication headache almost gone and no longer feeling like she is going to throw up [facility] [place] HPI - General Stated complaint: Covid exposed,body aches,cough,congestion Time Seen by Provider: 09/04/21 16:46 Mode of Arrival: Ambulatory Source of Information: Patient Limitations: No Limitations Description of Symptoms (Recalled from Triage Doc. by RN): Pt stated that she has ROD, stomach ache, body aches, and fever since yesterday HEENT Symptoms (Recalled from RN notes): No Resp Symptoms (Recalled from RN notes): No Skin Symptoms (Recalled from RN notes): No MS Symptoms (Recalled from RN notes): No Functional Status (Recalled from RN notes): n/a - History of Present Illness Provider Complaint: Patient states that she had COVID about a month ago States that she has been having headache, nausea sore throat, low grade fever and body aches since yesterday States that her grandchildren have been sick with the stomach bug, strep throat and flu States jose
[2021-09-04 16:52] LABS: UTC Strep Screen (Rapid) Positive (Negative)
[2021-09-04 17:24] VITALS: BP 133/90; PULSE 102; RESP 22; TEMP 37.2; O2SAT 98
[2021-09-04 19:00] LABS: UTC Influenza A Antigen Negative (Negative); UTC Influenza B Antigen Negative (Negative)
== END 2021-09-04 17:24 | disposition home or self-care (01) ==
PROVIDERS: Emergency Provider Nurse Practitioner; PCP Internal Medicine Adolescent Medicine
DX: J02.0 Streptococcal pharyngitis (principal); I10 Essential (primary) hypertension; E78.5 Hyperlipidemia, unspecified; E11.9 Type 2 diabetes mellitus without complications
CPT/HCPCS: 87804; 87880; 96372; 99212; G0463; J2405

== ENCOUNTER → 2021-11-07 14:24 | Outpatient (CLI) | payer BC, SELFPAY ==
--- NOTE | 2021-11-07 14:28 | US_ITS ---
PROCEDURE INFORMATION: Exam: US Right Breast, Complete Exam date and time: 11/07/2021 2:36 PM Age: 56 years old Clinical indication: Concern for right breast pain and lump in the retroareolar region, with retroareolar asymmetry reported 12/19/2020 and cluster of cysts at 9 o'clock reported 06/20/2021. TECHNIQUE: Imaging protocol: Complete ultrasound of all four quadrants of the Right breast and the retroareolar regions, including ultrasound of the axilla when performed. COMPARISON: US BREAST RT COMPLETE 06/20/2021 1:56 PM FINDINGS: Breast: Right sonography, At the area of palpable concern, annotated as upper outer quadrant 2 cm from the nipple, demonstrates a superficial mildly complicated cyst measuring 0.8 x 0.5 by 0.6 cm, stable when compared to 06/20/2021, measuring 0.8 cm. However, in this study, an isodense region of tissue is measured, which appears to involve the skin layer and subcutaneous tissue, as 1.7 x 0.8 cm, which includes the mildly complicated cyst. No other cystic or solid findings demonstrated. Sonographically unremarkable right axillary lymph node. IMPRESSION: At the palpable area, the cystic component is stable since 06/20/2021, however a surrounding soft tissue component is demonstrated. This is not specific and could be related to scarring, advise clinical and breast surgical correlation, and unless otherwise clinically indicated, suggest 3-6 month repeat targeted right breast ultrasound. Further evaluation of a palpable abnormality should be based on clinical grounds regardless of radiographic findings or lack thereof. Please note, last mammogram was 12/19/2020, thus patient is due for her bilateral mammogram next month, December 2021, unless otherwise clinically indicated. ASSESSMENT: See comment BI-RADS Category 3: Probably benign
== END ==
LOC: RAD 14:25
PROVIDERS: PCP Internal Medicine Adolescent Medicine; Visit Provider Nurse Practitioner Family
DX: N64.4 Mastodynia (principal)
CPT/HCPCS: 76641

== ENCOUNTER → 2021-12-29 07:50 | Outpatient (CLI) | payer BC, SELFPAY ==
--- NOTE | 2021-12-29 07:51 | US_ITS ---
FINAL REPORT CLINICAL HISTORY: .right breast cyst FINDINGS: ULTRASOUND DIRECTED RIGHT BREAST ASPIRATION Technique: The right breast was prepped in routine sterile fashion and locally anesthetized with 1% lidocaine. Cystic lesion was identified of the right breast at approximately 9:00 measuring up to 5 mm. An 18-gauge needle was directed within the cyst. A tiny amount of cloudy brown fluid was aspirated and submitted for cytology. The cyst was noted to be completely collapsed with no residual solid component. IMPRESSION: Technically successful ultrasound guided aspiration of subcentimeter right breast cyst showing benign imaging features. Minimal fluid sent for cytology. Six-month sonographic follow-up recommended for continued surveillance. If lesion remains absent on follow-up exam, patient may return to screening mammography. Authenticated and [facility]
== END ==
LOC: RAD 07:51
PROVIDERS: PCP Internal Medicine Adolescent Medicine; Visit Provider Surgery
DX: N60.01 Solitary cyst of right breast (principal)
CPT/HCPCS: 10005

== ENCOUNTER 2022-08-20 17:00 | Outpatient (RCR) | payer BC, SELFPAY | END 2022-08-20 17:05 | disposition home or self-care (01) | LOC: PT 17:00 | PROVIDERS: PCP Internal Medicine Adolescent Medicine; Visit Provider Orthopaedic Surgery | DX: M70.62 Trochanteric bursitis, left hip (principal); Z96.642 Presence of left artificial hip joint | CPT/HCPCS: 20560; 97010; 97014; 97110; 97163; G0283 ==

== ENCOUNTER → 2023-01-15 12:02 | Outpatient (CLI) | payer BC, SELFPAY ==
--- NOTE | 2023-01-15 12:05 | MR_ITS ---
FINAL REPORT CLINICAL HISTORY: LT HIP AND LEG PAIN TO KNEE, NUMBNESS ND TINGLING, SYMPTOMS X2 YEARS FINDINGS: Multiplanar MR imaging of the lumbar spine was performed without contrast. On the sagittal T2-weighted images, disc degeneration is seen at multiple levels. There are Schmorl's nodes at multiple levels. There is a hemangioma of the T12 vertebral body. The vertebral alignment is normal. There is no evidence of fracture. The conus has an unremarkable appearance. L1-2: There is no significant canal stenosis or neural foraminal narrowing. L2-3: There is no significant canal stenosis or neural foraminal narrowing. L3-4: An annular bulge and facet arthropathy are present. There is no significant canal stenosis or neural foraminal narrowing. L4-5: An annular bulge and facet arthropathy are present. There is right lateral recess stenosis. There is moderate right and mild left neural foraminal narrowing. There is moderate central canal stenosis with an AP diameter of the thecal sac of 6 mm. L5-S1: Facet arthropathy is present. There is no significant canal stenosis or neural foraminal narrowing. IMPRESSION: Multilevel degenerative change and spondylosis with canal stenosis at L4-5. Reviewed, Interpreted and Dictated by Colin Guallpa III, MD Transcribed by Sarah Denney Authenticated and [facility]
== END ==
PROVIDERS: PCP Internal Medicine Adolescent Medicine; Visit Provider Physician Assistant
DX: M54.50 Low back pain, unspecified (principal)
CPT/HCPCS: 72148; 76376

== ENCOUNTER → 2023-02-14 07:58 | Outpatient (CLI) | payer BC, SELFPAY ==
--- NOTE | 2023-02-14 08:02 | MM_ITS ---
PROCEDURE INFORMATION: Exam: MG Bilateral Screening 3D Mammography Exam date and time: 02/14/2023 7:50 AM Age: 57 years old Clinical indication: Screening examination TECHNIQUE: Imaging protocol: Bilateral Screening tomosynthesis and 2D mammography including computer-aided detection (CAD) when performed. COMPARISON: 1. MG MM DIG MAMM DX UNILAT RT CAD 06/20/2021 12:59 PM 2. MG MM DIG SCREENING MAMM BI W/CAD 12/19/2020 8:06 AM FINDINGS: MAMMOGRAPHY: Breast composition: There are scattered areas of fibroglandular density. Mass: None. Architectural distortion: None. Calcifications: No suspicious calcifications. Asymmetric density: None. Skin thickening: None. Axillary adenopathy: None. IMPRESSION: No mammographic evidence of malignancy. Annual screening is recommended unless otherwise clinically indicated. ASSESSMENT: BI-RADS Category 1: Negative
== END ==
PROVIDERS: PCP Internal Medicine Adolescent Medicine; Visit Provider Obstetrics & Gynecology Gynecology
DX: Z12.31 Encounter for screening mammogram for malignant neoplasm of breast (principal)
CPT/HCPCS: 77063; 77067

== ENCOUNTER → 2023-04-24 07:31 | Outpatient (CLI) | payer BC, SELFPAY ==
[2023-04-24 08:01] LABS: Basophils % 0.9 % (0.1-2.0); Eosinophils # 0.2 K/mm3 (0.0-0.4); Eosinophils % 3.3 % (0.1-12.0); Hematocrit 42.2 % (37.0-47.0); Hemoglobin 14.3 g/dL (12.2-16.2); Lymphocytes # 1.7 K/mm3 (0.7-4.5); Lymphocytes % 37.5 % (10-50); Mean Corpuscular HGB Conc 33.9 g/dL (31.8-35.4); Mean Corpuscular Hemoglobin 30.6 pg (27.0-31.2); Mean Corpuscular Volume 90.4 fl (81-99); Mean Platelet Volume 8.4 fl (7.4-10.4); Monocytes # 0.4 K/mm3 (0.1-1.0); Monocytes % 7.8 % (1.7-9.3); Neutrophils # 2.3 K/mm3 (1.8-7.8); Neutrophils % 50.6 % (37.0-80.0); Platelet Count 260 K/mm3 (142-424); Red Blood Count 4.67 M/mm3 (4.20-5.40); Red Cell Distribution Width 14.7 % (11.5-17.5); White Blood Count 4.5 K/mm3 (4.8-10.8)
[2023-04-24 08:33] LABS: Chloride 104 mmol/L (98-107); Potassium 4.2 mmoL/L (3.5-5.1); Sodium 138 mmol/L (136-145)
[2023-04-24 08:36] LABS: Alanine Aminotransferase 48 U/L (12-78); Albumin/Globulin Ratio 1.4 (1.1-1.8); Alkaline Phosphatase 97 U/L (38-126); Anion Gap 14.2 mEq/L (5-15); Aspartate Amino Transferase 73 U/L (14-36); Bilirubin,Total 0.3 mg/dl (0.2-1.3); Blood Urea Nitrogen 24 mg/dl (7-17); Calcium 9.2 mg/dl (8.4-10.2); Carbon Dioxide 24 mmol/L (22.0-30.0); Estimated Glomerular Filt Rate 73 ml/min (>60); GFR (African American) 89 ML/MIN (>60); Globulin 2.8 g/dL (1.3-3.2); Glucose 111 mg/dl (74-100); Total Protein,Serum 6.8 g/dl (6.3-8.2)
[2023-04-24 08:37] LABS: Magnesium 1.8 mg/dl (1.6-2.3)
[2023-04-24 08:53] LABS: Triiodothryronine (T3) Uptake 28 % (23.5-40.5)
[2023-04-24 08:54] LABS: Free Thyroxine Index 2.3 ug/dL (5.93-13.13); T4 (Thyroxine) 8.3 ug/dl (5.53-11.0)
[2023-04-24 09:07] LABS: Thyroid Stimulating Hormone 4.45 uIU/mL (0.465-4.68)
[2023-04-24 09:16] LABS: 25-OH Vitamin D, Total 39.6 ng/mL (30-100)
[2023-04-24 09:48] LABS: Vitamin B12 648 pg/mL (239-931)
[2023-04-25 08:36] LABS: FSH 45.2 mIU/mL (.); Testosterone,Total <3 ng/dL (4-50)
[2023-04-25 19:37] LABS: Chol/HDL Ratio 10.9 (1-3.5); Cholesterol 262 mg/dl (140-200); HDL Cholesterol 24 mg/dl (40-60)
[2023-04-25 19:39] LABS: Triglycerides 515 mg/dl (30-150)
== END ==
PROVIDERS: PCP Internal Medicine Adolescent Medicine; Visit Provider Internal Medicine Adolescent Medicine
DX: L65.9 Nonscarring hair loss, unspecified (principal); N95.1 Menopausal and female climacteric states; R53.81 Other malaise; R53.83 Other fatigue; E11.9 Type 2 diabetes mellitus without complications; E78.5 Hyperlipidemia, unspecified; Z68.30 Body mass index [BMI] 30.0-30.9, adult; Z79.84 Long term (current) use of oral hypoglycemic drugs
CPT/HCPCS: 36415; 80053; 80061; 82306; 82533; 82607; 83001; 83002; 83735; 84403; 84436; 84443; 84479; 85025

== ENCOUNTER → 2023-05-08 09:18 | Outpatient (CLI) | payer BC, SELFPAY ==
--- NOTE | 2023-05-08 09:22 | XR_ITS ---
FINAL REPORT CLINICAL HISTORY: RT KNEE PAIN COMPARISON: None FINDINGS: Three views of the right knee reveal no evidence of fracture or dislocation. The bony alignment is normal. Mild degenerative changes present. A moderate size joint effusion is present. No localized soft tissue abnormality is identified. IMPRESSION: Mild degenerative changes present with a moderate-sized joint effusion. Reviewed, Interpreted and Dictated by Colin Guallpa III, MD Transcribed by Zeny Fallon Authenticated and [facility]
== END ==
PROVIDERS: PCP Internal Medicine Adolescent Medicine; Visit Provider Nurse Practitioner Family
DX: M25.561 Pain in right knee (principal)
CPT/HCPCS: 73562

== ENCOUNTER 2023-08-07 09:43 | Outpatient (CLI) | payer BC, SELFPAY ==
[2023-08-07 09:54] LABS: Adenovirus F 40/41, stool Not Detected (NotDetected); Campylobacter Not Detected (NotDetected); Clostridium Difficile A/B, PCR Not Detected (NotDetected); Cryptosporidium Not Detected (NotDetected); Cyclospora Cayetanesis Not Detected (NotDetected); Entamoeba histolytica Not Detected (NotDetected); Enteroaggregative E coli Not Detected (NotDetected); Enteropathogenic E coli Not Detected (NotDetected); Enterotoxigenic E coli Not Detected (NotDetected); Giardia lamblia Not Detected (NotDetected); Norovirus Not Detected (NotDetected); Plesimonas Shigalloides, PCR Not Detected (NotDetected); Rotavirus A Not Detected (NotDetected); Salmonella, PCR Not Detected (NotDetected); Sapovirus Not Detected (NotDetected); Shiga-like toxin E coli Not Detected (NotDetected); Shigella Enterovasive E coli Not Detected (NotDetected); Vibrio Cholerae Not Detected (NotDetected); Vibrio, PCR Not Detected (NotDetected); Yersinia Entercolitica, PCR Not Detected (NotDetected)
[2023-08-09 12:35] LABS: Astrovirus Detected (NotDetected)
== END 2023-08-07 23:59 ==
LOC: LAB.DROPOF 09:43
PROVIDERS: PCP Internal Medicine Adolescent Medicine; Visit Provider Nurse Practitioner Family
DX: R19.7 Diarrhea, unspecified (principal); A08.32 Astrovirus enteritis
CPT/HCPCS: 87507

== ENCOUNTER 2024-01-01 11:07 | Outpatient (CLI) | payer BC, SELFPAY ==
--- NOTE | 2024-01-01 11:13 | MR_ITS ---
FINAL REPORT TECHNIQUE: Multiplanar MR without contrast CLINICAL HISTORY: LEFT KNEE PAIN medial side of patella FINDINGS: Articular cartilage: Thinning of the AC joint, most pronounced in the medial compartment. Marrow signal: Unremarkable Joint fluid: Small joint effusion. Menisci: Mild medial meniscal degeneration without discrete tear. Lateral meniscus intact. Ligaments: Collateral, cruciate and patellofemoral ligaments intact Tendons: Quadriceps and patellar tendon normal IMPRESSION: Degenerative change, greatest of the medial compartment without definite meniscal tear. Reviewed, Interpreted and Dictated by Emily Chacon MD Transcribed by Sarah Denney Authenticated and . [facility]
== END 2024-01-01 23:59 | disposition home or self-care (01) ==
LOC: RAD 11:08
PROVIDERS: PCP Internal Medicine Adolescent Medicine; Visit Provider Orthopaedic Surgery
DX: M25.562 Pain in left knee (principal)
CPT/HCPCS: 73721

== ENCOUNTER 2024-08-12 15:52 | Outpatient (CLI) | payer BC, SELFPAY ==
--- NOTE | 2024-08-12 15:55 | MM_ITS ---
PROCEDURE INFORMATION: Exam: MG Bilateral Screening 3D Mammography Exam date and time: 08/12/2024 4:03 PM Age: 59 years old Clinical indication: Screening examination TECHNIQUE: Imaging protocol: Bilateral Screening tomosynthesis and 2D mammography including computer-aided detection (CAD) when performed. COMPARISON: 1. MG MM DIG SCREENING MAMM BI W/CAD 02/14/2023 7:50 AM 2. MG MM DIG MAMM DX UNILAT RT CAD 06/20/2021 12:59 PM FINDINGS: MAMMOGRAPHY: Breast composition: There are scattered areas of fibroglandular density. Mass: None. Architectural distortion: None. Calcifications: No suspicious calcifications. Asymmetric density: None. Skin thickening: None. Axillary adenopathy: None. IMPRESSION: No mammographic evidence of malignancy. Annual screening is recommended unless otherwise clinically indicated. ASSESSMENT: BI-RADS Category 1: Negative.
== END 2024-08-12 23:59 | disposition home or self-care (01) ==
LOC: RAD 15:53
PROVIDERS: PCP Internal Medicine Adolescent Medicine; Visit Provider Obstetrics & Gynecology Gynecology
DX: Z12.31 Encounter for screening mammogram for malignant neoplasm of breast (principal)
CPT/HCPCS: 77063; 77067

== ENCOUNTER 2024-10-19 08:58 | Outpatient (CLI) | payer BC, SELFPAY ==
--- NOTE | 2024-10-19 09:01 | XR_ITS ---
FINAL REPORT TECHNIQUE: Bone densitometry calculations of the lumbar spine and right forearm were obtained. CLINICAL HISTORY: SCREENING COMPARISON: None FINDINGS: Using L1-4, the bone mineral density of the spine is 1.270 g/cm2, corresponding to T-score of 2.0 and a Z score of 3.5. This is within the range of normal. Using the right forearm, the bone mineral density of the 1/3 is 0.670 g/cm2, corresponding to a T-score of -0.4 and a Z-score of 1.0. This is within the range of normal. NOTE: T-score: Standard deviation compared with peak bone mass of young adult mean. *Following the recommendations of the International Society of Bone densitometry, classification of hip BMD is based on the lower of two T-scores; total hip or femoral neck. IMPRESSION: 1. Bone mineral density of the lumbar spine within the range of normal. 2. Bone mineral density of the right forearm within the range of normal. Reviewed, Interpreted and Dictated by Diane Stewart MD Transcribed by Zeny Fallon Authenticated and . [facility]
--- OUTSIDE RECORDS SUMMARY | 2024-10-19 09:01 | XMS_ITS ---
Author Organization [facility] Address [address] [place] [address] Phone Care Team Providers Care Speedometer Inspector Name Role Phone DONG PAREDES, LISA Unavailable [phone] Darin PAREDES, Praveen Chu Unavailable [phone] Problems Includes: Active, inactive, and resolved Problems All Visits Onset Date Resolved Date Provider Condition S tatus Joint Pain in the Right Knee 09/12/2023 Senthil Flynn PA-C Active Last Documented On 4 8:53AM ; [facility] Lower Back Pain 01/22/2023 ARIANNA NOVA PA-C Active Last Documented On 3 2:45PM ; [facility] Joint Pain in the Left Hip 05/22/2022 Senthil rodriguez PA-C Active Last Documented On 2 9:33AM ; [facility] Joint Pain in the Right Hip 05/19/2020 Arcelia Webster MD Active Last Documented On 0 12:35PM ; [facility], [facility] Plan of Treatment Pending Tests Order Diagnosis Results Due Ordering P rovider Radiology - MRI MRI Lumbar Spine Pain in left hip 01/17/23 Ajay Judd PA-C Last Documented On 3 9:34AM ; [facility] Radiology - MRI MRI Knee Bilateral primar y osteoarthritis of knee 12/26/23 Praveen Webster MD Last Documented On 4 10:58AM ; [facility] Lab Hemoglobin A1c 01/27/24 Zain Trevino CELL EFFICIENCY SUPERVISOR Last Documented On 4 8:15AM ; [facility] Lab CBC With Differential/Platelet 01/26 Zain Trevino CELL EFFICIENCY SUPERVISOR Last Documented On 4 8:15AM ; [facility], [facility] Lab Comp. Metabolic Panel (14) 01/27/24 Zain Trevino CELL EFFICIENCY SUPERVISOR Last Documented On 4 8:15AM ; [facility] Lab Hemoglobin A1c 01/27/24 Zain Trevino CELL EFFICIENCY SUPERVISOR Last Documented On 4 8:19AM ; [facility], [facility] Lab CBC With Differential/Platelet 01/26 Zain Trevino CELL EFFICIENCY SUPERVISOR Last Documented On 4 8:19AM ; [facility], [facility] Lab Comp. Metabolic Panel (14) 01/27/24 Zain Trevino CELL EFFICIENCY SUPERVISOR Last Documented On 4 8:19AM ; [facility] Future Appointments Date Time Location Provi wily Follow Up 11/10/2024 9:30AM [facility] WEI Lord MD Last Documented On 5 8:54AM ; [facility] Epidural Steroid Injection 11/18/2024 8:30AM [facility] Zain Garcia Bennywilliam CELL EFFICIENCY SUPERVISOR Last Documented On 5 8:54AM ; [facility] Instructions to patient Lose weight Last Documented On 5 1:17PM ; [facility] Lose weight Last Documented On 5 9:14AM ; [facility] Lose weight Last Documented On 4 9:24AM ; [facility] Lose weight Last Documented On 4 8:00AM ; [facility] Lose weight Last Documented On 4 8:52AM ; [facility] Lose weight Last Documented On 4 9:39AM ; [facility] Lose weight Last Documented On 4 8:54AM ; [facility] Lose weight Last Documented On 4 8:40AM ; [facility] Lose weight Last Documented On 3 10:41AM ; [facility] Lose weight Last Documented On 3 9:16AM ; [facility] Lose weight Last Documented On 3 8:36AM ; [facility] Instructions for patient Last Documented On 3 9:33AM ; [facility] Lose weight Last Documented On 3 9:33AM ; [facility] Instructions for patient Last Documented On 3 2:38PM ; [facility] Lose weight Last Documented On 3 2:38PM ; [facility] Instructions for patient Last Documented On 2 9:06AM ; [facility] Lose weight Last Documented On 2 9:06AM ; [facility] Instructions for patient Last Documented On 1 10:50AM ; [facility] Lose weight Last Documented On 1 10:50AM ; [facility] Instructions for patient Last Documented On 0 12:37PM ; [facility] Lose weight Last Documented On 0 1:07PM ; [facility] Assessments Includes: Assessments for all patient encounters Findings Encounter Date Overweight Follow Up with Ajay Judd PA-C 09/23/2024 Last Documented On 5 2:33PM ; [facility] Overweight Follow Up with Luana Schafer MD 08/03/2024 Last Documented On 5 12:29PM ; [facility] Overweight Follow Up with Luana Schafer MD 04/27/2024 Last Documented On 4 10:10AM ; [facility] Overweight Follow Up with Luana Schafer MD 01/06/2024 Last Documented On 4 10:28AM ; [facility] Overweight NEW PROBLEM/EST PT with Senthil leon PA-C 09/12/2023 Last Documented On 4 9:44AM ; [facility] Overweight Follow Up with Luana Schafer MD 09/04/2023 Last Documented On 4 9:22AM ; [facility] Overweight Follow Up with ARIANNA Swanson 05/10/2023 Last Documented On 3 10:56AM ; [facility] Overweight IN HOUSE REFERRAL with ARIANNA MONTES DE OCA PA-C 02/18/2023 Last Documented On 3 9:37AM ; [facility] Instructions Includes: Instructions for all patient encounters Instructions to patient Lose weight Last Documented On 5 1:17PM ; [facility] Lose weight Last Documented On 5 9:14AM ; [facility] Lose weight Last Documented On 4 9:24AM ; [facility] Lose weight Last Documented On 4 8:00AM ; [facility] Lose weight Last Documented On 4 8:52AM ; [facility] Lose weight Last Documented On 4 9:39AM ; [facility] Lose weight Last Documented On 4 8:54AM ; [facility] Lose weight Last Documented On 4 8:40AM ; [facility] Lose weight Last Documented On 3 10:41AM ; [facility] Lose weight Last Documented On 3 9:16AM ; [facility] Lose weight Last Documented On 3 8:36AM ; [facility] Instructions for patient Last Documented On 3 9:33AM ; [facility] Lose weight Last Documented On 3 9:33AM ; [facility] Instructions for patient Last Documented On 3 2:38PM ; [facility] Lose weight Last Documented On 3 2:38PM ; [facility] Instructions for patient Last Documented On 2 9:06AM ; [facility] Lose weight Last Documented On 2 9:06AM ; [facility] Instructions for patient Last Documented On 1 10:50AM ; [facility] Lose weight Last Documented On 1 10:50AM ; [facility] Instructions for patient Last Documented On 0 12:37PM ; [facility], [facility] Lose weight Last Documented On 0 1:07PM ; [facility] Medical Equipment - Implanted Devices Includes: Current and historical Devices No Medical Equipment Recorded Medications Includes: Current and historical Medications Current Medications (continue as prescribed) Jardiance 25 MG Oral Tablet 12/27/2023 Provider: LISA UMANA MD Diagnosis: Last Documented On 4 8:54AM By Tamara Bermudez ; [facility], [facility] hydroCHLOROthiazide 12.5 MG Oral Capsule 12/26/2023 Provider: Venita holcomb APRN Diagnosis: Last Documented On 4 8:54AM By Tamara Bermudez ; [facility], [facility] Hydrocortisone 10 MG Oral Tablet 12/21/2023 Provider : ANNAMARIA MANN MD Diagnosis: Last Documented On 4 8:54AM By Tamara Bermudez ; [facility], [facility] Gabapentin 300 MG Oral Capsule 11/21/2023 Provider: LISA UMANA MD Diagnosis: Last Documented On 4 8:54AM By Tamara Bermudez ; [facility], [facility] Omeprazole 20 MG Oral Capsule Delayed Release 11/17/19 Provider: LISA UMANA MD Diagnosis: Last Documented On 4 8:54AM By Tamara Bermudez ; [facility], [facility] Nexletol 180 MG Oral Tablet 08/27/2023 Provider: LISA UMANA MD Diagnosis: Last Documented On 4 8:46AM By Tamara Bermudez ; [facility], [facility] Repatha SureClick 140 MG/ML Subcutaneous Solution Auto-injector 08/25/2023 Provider: LISA UMANA MD Diagnosis: Last Documented On 4 8:46AM By Tamara Bermudez ; [facility], [facility] Est Estrogens-Methyltest 1.25-2.5 MG Oral Tablet 08/19 Provider: Diagnosis: Last Documented On 4 8:46AM By Tamara Bermudez ; [facility], [facility] Cyclobenzaprine HCl 5 MG Oral Tablet 08/13/2023 Prov ider: Venita Arcos APRN Diagnosis: Last Documented On 4 8:46AM By Tamara Bermudez ; [facility] Nebivolol HCl 5 MG Oral Tablet 08/12/2023 Provider: Sobeida Liu MD Diagnosis: Last Documented On 4 8:46AM By Tamara Bermudez ; [facility] Past Medications on file Diclofenac Sodium 50 MG Oral Tablet Delayed Release 03/17/2024 - 05/16/2024 Provider: Praveen lazcano MD Diagnosis: twice a day Last Documented On 4 9:36AM By Darya Seo ; [facility] Diclofenac Sodium 50 MG Oral Tablet Delayed Release 12/12/2023 - 02/11/2024 Provider: Praveen lazcano MD Diagnosis: twice a day Last Documented On 4 9:25AM By Luana Lord ; [facility] Hydrocortisone 10 MG Oral Tablet 11/18/2023 - 11/21/19 Provider: ANNAMARIA MANN MD Diagnosis: Last Documented On 4 8:54AM By Tamara Bermudez ; [facility] hydroCHLOROthiazide 12.5 MG Oral Capsule 09/25/2023 - 12/12/2023 Provider: Venita Arcos APRN Diagnosis: Last Documented On 4 10:08AM By Darya Seo ; [facility] Diclofenac Sodium 75 MG Oral Tablet, enteric coated 09/12/2023 - 12/12/2023 Provider: Senthil Flynn PA-C Diagnosis: twice a day Last Documented On 4 10:08AM By Darya Seo ; [facility] Gabapentin 300 MG Oral Capsule 07/02/2023 - 08/02/2023 Provider: LISA UMANA MD Diagnosis: Last Documented On 4 8:53AM By Tamara Bermudez ; [facility] Jardiance 25 MG Oral Tablet 06/30/2023 - 09/29/2023 Pr ovider: LISA UMANA MD Diagnosis: Last Documented On 4 8:53AM By Tamara Bermudez ; [facility] hydroCHLOROthiazide 12.5 MG Oral Capsule 06/27/2023 - 09/26/2023 Provider: Venita Arcos APRN Diagnosis: Last Documented On 4 8:53AM By Tamara Bermudez ; [facility] Omeprazole 20 MG Oral Capsul e Delayed Release 05/28/2023 - 08/28/2023 Provider: LISA Polanco Diagnosis: Last Documented On 4 8:53AM By Tamara Bermudez ; [facility] Aspirin 81 MG Oral Tablet Delayed Release 06/07/2022 - 07/19/2022 Provider: Praveen Webster MD Diagnosis: twice a day Last Documented On 2 6:11PM By Marianna Youssef ; [facility] Acetaminophen 500 MG Oral Tablet 06/04/2022 - 07/04/2022 Provider: Praveen Webster MD Diagnosis: 2 three times a day sx Last Documented On 2 10:50AM By Kevin Webster ; [facility] traMADol HCl 50 MG Oral Tablet 06/04/2022 - 06/09/2022 Provider: Praveen lazcano MD Diagnosis: 1-2 po q 4-6h sx Last Documented On 2 10:50AM By Kevin Webster ; [facility] oxyCODONE HCl 5 MG Oral Tablet 06/04/2022 - 06/09/2022 Provider: Praveen lazcano MD Diagnosis: 1-2 po q 4-6h sx Last Documented On 2 10:50AM By Kevin Webster ; [facility] Cefadroxil 500 MG Oral Capsule 06/04/2022 - 06/07/2022 Provider: Praveen lazcano MD Diagnosis: twice a day sx Last Documented On 2 10:50AM By Kevin Webster ; [facility] Colace 100 MG Oral Capsule 06/04/2022 - 09/02/2022 Provider: Praveen lazcano MD Diagnosis: 1-2 tabs daily sx Last Documented On 2 10:50AM By Kevin Webster ; [facility] Meloxicam 15 MG Oral Tablet 06/04/2022 - 06/18/2022 Provider: Praveen lazcano MD Diagnosis: once a day sx Last Documented On 2 10:50AM By Kevin Webster ; [facility] Ondansetron HCl 4 MG Oral Tablet 06/04/2022 - 06/09/2022 Provider: Praveen Webster MD Diagnosis: [id number] sx Last Documented On 2 10:50AM By Kevin Webster ; [facility] Nexletol 180 MG Oral Tablet 05/28/2022 - 06/27/2022 Pr ovider: Diagnosis: Last Documented On 4 8:44AM By Tamara Bermudez ; [facility] Mexiletine HCl 150 MG Oral Capsule 05/28/2022 - 2021 Provider: Diagnosis: Last Documented On 2 9:15AM By Renee López ; [facility] Omeprazole 20 MG Oral Tablet Delayed Release 05/28/2022 - 06/27/2022 Provider: Diagnosis: Last Documented On 4 8:44AM By Tamara Bermudez ; [facility] Bystolic 5 MG Oral Tablet 05/28/2022 - 06/27/2022 Prov ider: Diagnosis: Last Documented On 4 8:44AM By Tamara Bermudez ; [facility] Repatha 140 MG/ML Subcutaneo us Solution Prefilled Syringe 05/22/2022 - 06/21/2022 Provider: Diagnosis: Last Documented On 4 8:44AM By Tamara Bermudez ; [facility] Estrace 0.5 MG Oral Tablet 05/22/2022 - 05/28/2022 Pro vider: Diagnosis: Last Documented On 2 7:59AM By Nataly Martinez ; [facility] Daily Multivitamin Oral Capsule 05/22/2022 - Provider: Diagnosis: Last Documented On 4 8:44AM By Tamara Bermudez ; [facility] Cyclobenzaprine HCl 10 MG Oral Tablet 05/22/2022 - Provider: Diagnosis: Last Documented On 4 8:44AM By Tamara Bermudez ; [facility] Adult Aspirin Regimen 81 MG Oral Tablet Delayed Release 05/22/2022 - 05/28/2022 Provider: Diagnosis: Last Documented On 2 7:59AM By Nataly Martinez ; [facility] Advanced Probiotic Oral Capsule 05/22/2022 - Provider: Diagnosis: Last Documented On 4 8:44AM By Tamara Bermudez ; [facility] Vascepa 0.5 GM Oral Capsule 05/22/2022 - 05/28/2022 Pr ovider: Diagnosis: Last Documented On 2 8:00AM By Nataly Martinez ; [facility] PriLOSEC 10 MG Oral Packet 05/22/2022 - 05/28/2022 Pro vider: Diagnosis: Last Documented On 2 8:00AM By Nataly Martinez ; [facility] hydroCHLOROthiazide 12.5 MG Oral Tablet 05/22/2022 - 1 08/22/2021 Provider: Diagnosis: Last Documented On 4 8:44AM By Tamara Bermudez ; [facility] Estradiol 0.1 MG/24HR Transdermal Patch Weekly 1 07/22/2021 - 06/21/2022 Provider: Diagnosis: Last Documented On 4 8:44AM By Tamara Bermudez ; [facility] Estradiol 0.1 MG/GM Vaginal Cream 04/24/2022 - 023 Provider: Diagnosis: Last Documented On 4 8:45AM By Tamara Bermudez ; [facility] Gabapentin 300 MG Oral Capsule 04/24/2022 - 05/25/2022 Provider: LISA UMANA MD Diagnosis: Last Documented On 4 8:45AM By Tamara Bermudez ; [facility] Jardiance 25 MG Oral Tablet 03/25/2022 - 06/24/2022 Pr ovider: LISA UMANA MD Diagnosis: Last Documented On 4 8:45AM By Tamara Bermudez ; [facility] Nexletol 180 MG Oral Tablet 01/19/2022 - 05/28/2022 Pr ovider: LISA UMANA MD Diagnosis: Last Documented On 2 8:00AM By Nataly Martinez ; [facility] traMADol HCl 50 MG Oral Tablet 06/15/2020 - 05/22/2022 Provider: Praveen lazcano MD Diagnosis: 1-2 po q6h prn pain Last Documented On 2 9:36AM By Judith Cabrera ; [facility] oxyCODONE HCl 5 MG Oral Tablet 06/15/2020 - 05/22/2022 Provider: Praveen lazcano MD Diagnosis: 1-2 po q 4-6h Last Documented On 2 9:36AM By Judith Cabrera ; [facility] Neurontin 300 MG Oral Capsule 06/15/2020 - 05/28/2022 Provider: Praveen lazcano MD Diagnosis: 1 every bedtime Last Documented On 2 8:00AM By Nataly Martinez ; [facility] Zofran 4 MG Oral Tablet 06/15/2020 - 05/22/2022 Provid er: Praveen Webster MD Diagnosis: [id number] Last Documented On 2 9:36AM By Judith Cabrera ; [facility] Mobic 15 MG Oral Tablet 06/15/2020 - 05/22/2022 Provid er: Praveen Webster MD Diagnosis: once a day Last Documented On 2 9:37AM By Judith Cabrera ; [facility] Colace 100 MG Oral Capsule 06/15/2020 - 05/22/2022 Provider: Praveen lazcano MD Diagnosis: 1-2 tabs daily Last Documented On 2 9:37AM By Judith Cabrera ; [facility] Cefadroxil 500 MG Oral Capsule 06/15/2020 - 05/22/2022 Provider: Praveen lazcano MD Diagnosis: twice a day Last Documented On 2 9:37AM By Judith Cabrera ; [facility] Acetaminophen 500 MG Oral Tablet 06/15/2020 - 05/22/2022 Provider: Praveen Webster MD Diagnosis: 2 three times a day Last Documented On 2 9:38AM By Judith Cabrera ; [facility] Vascepa 0.5 GM Oral Capsule 05/19/2020 - 05/22/2022 Pr ovider: Diagnosis: Last Documented On 2 9:33AM By Judith Cabrera ; [facility] Turmeric 400 MG Oral Capsule 05/19/2020 - 05/22/2022 P rovider: Diagnosis: Last Documented On 9:33AM By Judith Cabrera ; [facility] Bystolic 5 MG Oral Tablet 05/19/2020 - 05/22/2022 Prov ider: Diagnosis: Last Documented On 2 9:36AM By Judith Cabrera ; [facility] Cyclobenzaprine HCl 10 MG Oral Tablet 05/19/2020 - Provider: Diagnosis: Last Documented On 2 9:35AM By Judith Cabrera ; [facility] Estrace 0.5 MG Oral Tablet 05/19/2020 - 05/22/2022 Pro vider: Diagnosis: Last Documented On 2 9:35AM By Judith Cabrera ; [facility] hydroCHLOROthiazide 12.5 MG Oral Tablet 05/19/2020 - 1 07/22/2021 Provider: Diagnosis: Last Documented On 2 9:34AM By Judith Cabrera ; [facility] Estradiol 0.1 MG/24HR Transdermal Patch Weekly 1 07/19/2019 - 05/22/2022 Provider: Diagnosis: Last Documented On 2 9:34AM By Judith Cabrera ; [facility] Advanced Probiotic Oral Capsule 05/19/2020 - Provider: Diagnosis: Last Documented On 2 9:36AM By Judith Cabrera ; [facility] PriLOSEC 10 MG Oral Packet 05/19/2020 - 05/22/2022 Pro vider: Diagnosis: Last Documented On 2 9:34AM By Judith Cabrera ; [facility] Adult Aspirin Regimen 81 MG Oral Tablet Delayed Release 05/19/2020 - 05/22/2022 Provider: Diagnosis: Last Documented On 2 9:36AM By Judith Cabrera ; [facility] CoQ10 400 MG Oral Capsule 05/19/2020 - 05/22/2022 Prov ider: Diagnosis: Last Documented On 2 9:36AM By Judith Cabrera ; [facility] Repatha 140 MG/ML Subcutaneo us Solution Prefilled Syringe 05/19/2020 - 05/22/2022 Provider: Diagnosis: Last Documented On 2 9:34AM By Judith Cabrera ; [facility] Daily Multivitamin Oral Capsule 05/19/2020 - Provider: Diagnosis: Last Documented On 2 9:35AM By Judith Cabrera ; [facility] Medications Administered Includes: Administered Medications in patient's chart No Administered Medications Recorded Vital Signs Includes: Vital Signs from 10/20/2023 through 10/19/2024 Vital Name 09/23/2024 01:18P 08/03/2024 09:21A 04/27/2024 09:24A 01/06/2024 08:57A 12/12/2023 09:39A Height (in) 67 67 67 67 67 Weight (lb) 197.3 200 207 207.4 192 Body Mass Index 30.9 31.3 32.4 32.5 30.1 Body Surface Area 2 2 2.1 2.1 2 Pain Level 3 6 Note: ab cd HL LC SV Last Documented: On 09/23/2024 1:40PM ; [facility] On 08/03/2024 9:21AM ; [facility] On 04/27/2024 9:24AM ; [facility] On 01/06/2024 8:57AM ; [facility] On 12/12/2023 9:39AM ; [facility], [facility] Results Includes: Results from 10/20/2023 through 10/19/2024 No Results Recorded For Specified Dates History of Present Illness History of Present Illness not supported for this document type No History of Present Illness Recorded Social History Description Last Updated Not a current smoker. 09/12/2023 Last Documented On 4 9:44AM ; [facility], [facility] Tobacco non-user 01/03/2023 Last Documented On 3 9:34AM ; [facility], [facility] Recent change in diet 01/03/2023 Last Documented On 3 9:34AM ; [facility], [facility] Caffeine use 05/19/2020 Last Documented On 0 1:30PM ; [facility], [facility] Exercising regularly 05/19/2020 Last Documented On 0 1:30PM ; [facility], [facility] Recent change in diet low fat/carb 05/19 Last Documented On 0 1:30PM ; [facility] Non-smoker 05/19/2020 Last Documented On 0 1:30PM ; [facility], [facility] Not a current smoker. 05/19/2020 Last Documented On 0 1:30PM ; [facility] Not using alcohol 05/19/2020 Last Documented On 0 1:30PM ; [facility] Not using drugs 05/19/2020 Last Documented On 0 1:30PM ; [facility] Smoking Status Unknown Procedures and Surgical History Includes: Procedures from 10/20/2023 through 10/19/2024 Procedures Code Diagnosis Performing Provider Service Location Service Date HIP BILATERAL [id number] Aftercare following joint replacement surgery, Presence of artificial hip joint, bilateral Ajay Judd PA-C [facility] 09/23/2024 Last Documented On 5 3:23PM ; [facility] Triamcinolone/Kenalog, 10mg per cc [id number] Spinal stenosis, lumbar region with neurogenic claudication Zain Trevino CRNA [facility] [place] 08/12/2024 Last Documented On 5 11:34AM ; [facility], [facility] Lumbar epidural 78015 Spinal stenosis, lumbar region with neurogenic claudication Zain Trevino CELL EFFICIENCY SUPERVISOR [facility] 08/12/2024 Last Documented On 5 11:34AM ; [facility] Triamcinolone/Kenalog, 10mg per cc [id number] Spinal stenosis, lumbar region with neurogenic claudication Zain Trevino CELL EFFICIENCY SUPERVISOR [facility] 05/01/2024 Last Documented On 4 11:59AM ; [facility], [facility] Lumbar epidural [id number] Spinal stenosis, lumbar region with neurogenic claudication Zain Trevino CELL EFFICIENCY SUPERVISOR [facility] 05/01/2024 Last Documented On 4 11:59AM ; [facility] Triamcinolone/Kenalog, 10mg per cc [id number] Spinal stenosis, lumbar region with neurogenic claudication Zain Trevino CELL EFFICIENCY SUPERVISOR [facility] 01/29/2024 Last Documented On 4 11:46AM ; [facility] Lumbar epidural 11730 Spinal stenosis, lumbar region with neurogenic claudication Zain Trevino CELL EFFICIENCY SUPERVISOR [facility] 01/29/2024 Last Documented On 4 11:46AM ; [facility] X-RAY EXAM OF LOWER SPINE 4-5 VIEWS [id number] Spondylolisthesis, lumbar region, Spinal stenosis, lumbar region with neurogenic claudication Luana Lord MD [facility] 01/06/2024 Last Documented On 4 8:22AM ; [facility] X-RAY EXAM OF PELVIS 1-2 VIEWS 20285 Pain in right hip, Pain in left hip Praveen Webster MD [facility] 12/12/2023 Last Documented On 4 2:49PM ; [facility] Triamcinolone/Kenalog, 10mg per cc J3301 Radiculopathy, lumbar region Zain Trevino CELL EFFICIENCY SUPERVISOR [facility] 10/25/2023 Last Documented On 4 1:18PM ; [facility] Lumbar epidural 59896 Radiculopathy, l umbar region Zain Trevino CELL EFFICIENCY SUPERVISOR [facility] 10/25/2023 Last Documented On 4 1:18PM ; [facility] Surgical History Last Updated Past Surgical History: Sinus sx ~Breast reduction 09/04/2023 Last Documented On 4 9:22AM ; [facility] Medical History Includes: Medical History in patient's chart Description Last Updated No recent immunization for pneumococcal pneumonia 05/22/2022 Last Documented On 3 8:26AM ; [facility] Recent immunization for flu 04/09/2022 1 07/22/2021 Last Documented On 3 8:26AM ; [facility] Arthritis 05/19/2020 Last Documented On 0 1:30PM ; [facility] Heartburn / Acid Reflux 05/19/2020 Last Documented On 0 1:30PM ; [facility] History of heart disease 05/19/2020 Last Documented On 0 1:30PM ; [facility] Hypertension 05/19/2020 Last Documented On 0 1:30PM ; [facility] Liver Disease 05/19/2020 Last Documented On 0 1:30PM ; [facility] Sleep Apnea 05/19/2020 Last Documented On 0 1:30PM ; [facility] Appendectomy 05/19/2020 Last Documented On 0 1:30PM ; [facility] Heart surgery 05/19/2020 Last Documented On 0 1:30PM ; [facility] Hernia repair 05/19/2020 Last Documented On 0 1:30PM ; [facility] Hysterectomy 05/19/2020 Last Documented On 0 1:30PM ; [facility] Past Surgical History: sinus sx, breast reduction 05/19/2020 Last Documented On 0 1:30PM ; [facility] Past medical and surgical history non-co ntributory 05/19/2020 Last Documented On 0 1:30PM ; [facility] Family History Includes: Family History in patient's chart Description Last Updated Diabetes mellitus 05/19/2020 Last Documented On 0 1:30PM ; [facility] Family history of heart disease 05/19/20 20 Last Documented On 0 1:30PM ; [facility] Family history of hypertension 0 Last Documented On 0 1:30PM ; [facility] Family history of osteoporosis 0 Last Documented On 0 1:30PM ; [facility] Review of Systems Review of Systems not supported for this document type No Review of Systems Recorded Mental Status Description No anxiety Functional Status No Functional Status Recorded Physical Exam Physical Exam not supported for this document type No Physical Exam Recorded Immunizations Includes: Immunizations in patient's chart Vaccine Dose # Date Site Reaction(s) Status Source Influenza 1 07/08/2019 Complete (Reported) Patient Last Documented On 0 1:06PM ; [facility] Influenza 2 04/09/2022 Complete (Reported) Patient Last Documented On 2 9:39AM ; [facility] PCV (Pneumovax 23) 1 07/08/2019 Complete ( Reported) Patient Last Documented On 0 1:06PM ; [facility] PCV (Pneumovax 23) 2 05/22/2022 Complete (Refused - Patient objection) [facility] Last Documented On 2 9:39AM ; [facility] Allergies Includes: Active, inactive, and resolved Allergies Substance Type Reaction Onset Date Resolved Date Statu s Stadol Allergy 01/03/2023 Active Last Documented On 5 1:17PM ; [facility] Encounters Includes: Encounters from 10/20/2023 through 10/19/2024 Encounter Provider Location Date Check-In Time Check-Out Time Diagnosis Follow Up Ajay Judd PA-C [facility] 025 1:19PM 2:13PM Overweight Epidural Steroid Injection Zain Trevino CRNA 025 08/03/2024 8:58AM 08/03/2024 11:59PM Epidural Steroid Injection Zain Trevino CRNA [facility] 025 8:22AM 8:50AM Follow Up Luana Lord MD [facility] 9:06AM 9:46AM Overweight Epidural Steroid Injection Zain Trevino CELL EFFICIENCY SUPERVISOR 024 01/29/2024 2:15PM 01/29/2024 11:59PM Epidural Steroid Injection Zain Trevino CELL EFFICIENCY SUPERVISOR [facility] 8:45AM 8:59AM Follow Up Luana Lord MD [facility] 9:04AM 9:36AM Overweight [Patient Encounter] Praveen Webster MD 01/29/2024 1:35PM 01/29/2024 11:59PM Epidural Steroid Injection Zain Trevino CELL EFFICIENCY SUPERVISOR 024 01/08/2024 11:03AM 01/08/2024 11:59PM Epidural Steroid Injection Zain Trevino CELL EFFICIENCY SUPERVISOR [facility] 024 8:59AM 9:37AM IN HOUSE REFERRAL Luis E Snell MD [facility] 7:50AM 8:51AM Follow Up Luana Lord MD [facility] 8:51AM 9:21AM Overweight Follow Up Praveen Webster MD [facility] 9:05AM 10:41AM Epidural Steroid Injection Zain Trevino CELL EFFICIENCY SUPERVISOR 024 09/12/2023 1:57PM 09/12/2023 11:59PM Epidural Steroid Injection Zain Trevino CELL EFFICIENCY SUPERVISOR [facility] 024 8:48AM 9:13AM Insurance Includes: Active Insurance Policies Plan Name Member ID Group # Subscriber Relationship Effect jeanine Dates 1 - [facility] [id number] Gaspar Self 07/08/2022 - Unknown Clinical Notes Includes: Signed Clinical Notes starting from 06/21/2022 * Progress note Date Encounter Last Documented by 09/23/2024 Follow Up Last documented on 09/23/2024; 2:33 PM, Ajay Judd PA-C; [facility] Active Problems & Conditions - Joint Pain in the Left Hip - Joint Pain in the Right Hip - Joint Pain in the Right Knee - Lower Back Pain Chief Complaint The Chief Complaint is: Left Hip Pain. Referred Here Referred by gina arcos. History of Present Illness Aurea Gaspar is a 59 year old female. - Allergy list reviewed - Problem list reviewed - Medication list reviewed - - Review of medications documented Current Medication - Cyclobenzaprine HCl 5 MG Oral Tablet take as directed 90 days, 0 refills - Est Estrogens-Methyltest 1.25-2.5 MG Oral Tablet take as directed 90 days, 0 refills - Gabapentin 300 MG Oral Capsule twice a day 30 days, 0 refills - hydroCHLOROthiazide 12.5 MG Oral Capsule once a day 90 days, 0 refills - Hydrocortisone 10 MG Oral Tablet three times a day 30 days, 0 refills - Jardiance 25 MG Oral Tablet once a day 90 days, 0 refills - Nebivolol HCl 5 MG Oral Tablet take as directed 90 days, 0 refills - Nexletol 180 MG Oral Tablet take as directed 90 days, 0 refills - Omeprazole 20 MG Oral Capsule Delayed Release once a day 90 days, 0 refills - Repatha SureClick 140 MG/ML Subcutaneous Solution Auto-injector take as directed 28 days, 0 refills Past Medical/Surgical History Reported: Immunization History: Recent immunization for flu 04/09/2022. No recent immunization for pneumococcal pneumonia. Diagnoses: Heart disease. Sleep Apnea Heartburn / Acid Reflux Liver Disease Hypertension. Arthritis Past medical and surgical history non-contributory. Surgical: - Past Surgical History: Sinus sx Breast reduction Social History Not a current smoker. Not a current smoker. Current diet: Recent change in diet low fat/carb. Recent change in diet. Caffeine use: Caffeine use. Tobacco use: Tobacco non-user and non-smoker. Alcohol: Not using alcohol. Drug Use: Not using drugs. Habits: Exercising regularly. Allergies - Stadol Family History Heart disease Diabetes mellitus Systemic hypertension Osteoporosis Review Of Systems Systemic: Feeling tired. No recent weight loss. Recent weight gain. Head: Headache and sinus pain. Eyes: Vision problems. No Cataracts. Glasses/Contacts. No Glaucoma. Otolaryngeal: No hearing loss and no tinnitus. Cardiovascular: Chest pain or discomfort, palpitations, Hypertension, and High Cholesterol. Pulmonary: No daytime asthma symptoms and no chronic cough. No wheezing. Gastrointestinal: No heartburn and no abdominal pain. No Indigestion, no Peptic Ulcer, no GI Stomach Bleed, no Ulcers, and no Acid Reflux. Endocrine: Hot flashes. No muscle weakness. Diabetes. No Hypothyroid and no Hyperthyroid. Hematologic: No easy bleeding, no tendency for easy bruising, and no Anemia. Musculoskeletal: No Arthritis. Lower back pain. No soft tissue swelling. Pain localized to one or more joints. Neurological: No dizziness, no convulsions, and no numbness. Psychological: No anxiety, no emotional lability, and no depression. Insomnia. Not crying for no reason. Skin: No dry skin. No Ulcers, no Scars, and no rash. Allergic and Immunologic: Complaint of seasonal allergic reaction. Physical Findings - Vitals taken 09/23/2024 01:18 pm ab Height 67 in Weight 197 lbs 4.8 oz Body Mass Index 30.9 kg/m2 Body Surface Area 2 m2 Patient alert and oriented Healthy weight Normal gait LLD [0] Skin clean, dry and intact [No] TTP greater trochanter, gluteus medius musculature Right hip Flexion [125], IR [40], ER [50] Straight leg raise [without difficulty] Abductor Strength [5/5] Strenght [5/5] TA, Gastroc, Quad Sensation intact to light touch throughout Palpable puslses DP/PT Skin clean, dry and intact [No] TTP greater trochanter, gluteus medius musculature Left hip Flexion [125], IR [40], ER [50] Straight leg raise [without difficulty] Abductor Strength [5/5] Strenght [5/5] TA, Gastroc, Quad Sensation intact to light touch throughout Palpable puslses DP/PT Tests Three views of the bilateral hips taken today demonstrate well-fixed well- positioned total hip arthroplasties. No sign of loosening or prosthetic complications Assessment - Overweight Bilateral total hip arthroplasties Counseling/Education - Tobacco non-user - Use of tobacco assessment performed - Lose weight Plan Patient is 3 and 4 years postop bilateral total hip arthroplasties. Doing well no complaints. Continue with ad tom activity. Follow up in the office in 5 years or PRN Notes This dictation was done with voice recognition software and may contain errors and omissions. Practice Management Use of tobacco assessment performed Review of medications documented. Care Team - LISA UMANA MD - ABSORPTION AND ADSORPTION ENGINEER * Progress note Date Encounter Last Documented by 08/03/2024 Follow Up Last documented on 09/14/2024; 12:29 PM, Luana Schafer MD; [facility] Active Problems & Conditions - Joint Pain in the Left Hip - Joint Pain in the Right Hip - Joint Pain in the Right Knee - Lower Back Pain Chief Complaint The Chief Complaint is: Low back pain. Referred Here Referred by R- Rad Judd PA-C. History of Present Illness Aurea Gaspar is a 59 year old female. - Allergy list reviewed - Problem list reviewed - Medication list reviewed - Medication list reviewed - Previous history of new onset pain Injury is not work related or an automotive accident - Patient pain level from 1-10: 6 -6 - Yes, previous treatment. - History of Physical Therapy - History of Home Exercise - History of Injections 03/21/2023 L4-5 JULIEN 07/26/2023 L4-5 JULIEN 95% 10 weeks 10/25/2023 L4-5 JULIEN 50% for 8 weeks 01/29/2024 L4-5 JULIEN 90% for 9weeks 05/01/2024 L4-5 JULIEN 90% for 9 weeks - - Review of medications documented Medications used for this condition: This is a 59-year-old female following up with me on lumbar stenosis and an L4-5 spondylolisthes. She continues to have great pain relief with periodic L4-5 epidural steroid injections. She said she gets about 90% relief for about 13 weeks. Current Medication - Cyclobenzaprine HCl 5 MG Oral Tablet take as directed 90 days, 0 refills - Est Estrogens-Methyltest 1.25-2.5 MG Oral Tablet take as directed 90 days, 0 refills - Gabapentin 300 MG Oral Capsule twice a day 30 days, 0 refills - hydroCHLOROthiazide 12.5 MG Oral Capsule once a day 90 days, 0 refills - Hydrocortisone 10 MG Oral Tablet three times a day 30 days, 0 refills - Jardiance 25 MG Oral Tablet once a day 90 days, 0 refills - Nebivolol HCl 5 MG Oral Tablet take as directed 90 days, 0 refills - Nexletol 180 MG Oral Tablet take as directed 90 days, 0 refills - Omeprazole 20 MG Oral Capsule Delayed Release once a day 90 days, 0 refills - Repatha SureClick 140 MG/ML Subcutaneous Solution Auto-injector take as directed 28 days, 0 refills Past Medical/Surgical History Reported: Immunization History: Recent immunization for flu 04/09/2022. No recent immunization for pneumococcal pneumonia. Diagnoses: Heart disease. Sleep Apnea Heartburn / Acid Reflux Liver Disease Hypertension. Arthritis Surgical: - Heart surgery - Appendectomy - Past Surgical History: Sinus sx Breast reduction - Hernia repair - Hysterectomy Social History Not a current smoker. Current diet: Recent change in diet. Caffeine use: Caffeine use. Tobacco use: Tobacco non-user. Alcohol: Not using alcohol. Drug Use: Not using drugs. Habits: Exercising regularly. Allergies - Stadol Family History Heart disease Diabetes mellitus Systemic hypertension Osteoporosis Review Of Systems Systemic: Feeling tired. No recent weight loss. Recent weight gain. Head: Headache and sinus pain. Eyes: Vision problems. No Cataracts. Glasses/Contacts. No Glaucoma. Otolaryngeal: No hearing loss and no tinnitus. Cardiovascular: Chest pain or discomfort, palpitations, Hypertension, and High Cholesterol. Pulmonary: No daytime asthma symptoms and no chronic cough. No wheezing. Gastrointestinal: No heartburn and no abdominal pain. No Indigestion, no Peptic Ulcer, no GI Stomach Bleed, no Ulcers, and no Acid Reflux. Endocrine: Hot flashes. No muscle weakness. Diabetes. No Hypothyroid and no Hyperthyroid. Hematologic: No easy bleeding, no tendency for easy bruising, and no Anemia. Musculoskeletal: No Arthritis. Lower back pain. No soft tissue swelling. Pain localized to one or more joints. Neurological: No dizziness, no convulsions, and no numbness. Psychological: No anxiety, no emotional lability, and no depression. Insomnia. Not crying for no reason. Skin: No dry skin. No Ulcers, no Scars, and no rash. Allergic and Immunologic: Complaint of seasonal allergic reaction. Physical Findings - Vitals taken 08/03/2024 09:21 am cd Height 67 in Weight 200 lbs Body Mass Index 31.3 kg/m2 Body Surface Area 2 m2 Pain Level 3 Standard Measurements: - Patient was overweight. General: Alert and Oriented A&Ox3 Focused Musculoskeletal Exam of the Spine: Patient is able to ambulate in the room without assistive device No focal tenderness to palpation in the Lumbar Spine Motor HF KE AD EHL GS Right 5/5 5/5 5/5 5/5 5/5 Left 5/5 5/5 5/5 5/5 5/5 Sensation L2 L3 L4 L5 S1 Right 2 2 2 2 2 Left 2 2 2 2 2 Patellar reflex is 2+ bilaterally Achilles reflex is 2+ bilaterally No ankle clonus Symmetric, palpable posterior tibialis pulse bilaterally User Defined 5 59-year-old female with lumbar stenosis and an L4-5 spondylolisthesis. It was nice seeing Aurea in the office today. I told her that we can continue with periodic L4-5 epidural steroid injections. She said in the future she would probably like to discuss surgery but right now things are being very well managed nonoperatively so she would like to continue with that. Assessment - Overweight Previous Tests Musculoskeletal: History of EKG and History of Blood Tests. Imaging: X-Ray: X-ray 01/03/2023 [facility] @ [facility] 01/06/2024 [facility]. MRI Scan: An MRI was performed 01/15/2023 [facility] @ [facility]. Counseling/Education - Tobacco non-user - Use of tobacco assessment performed - Lose weight Practice Management Use of tobacco assessment performed Review of medications documented. Care Team - LISA UMANA MD - ABSORPTION AND ADSORPTION ENGINEER Notes This dictation was done with voice recognition software and may contain errors and omissions. Health Reminders - Assess BMI satisfied 08/03/2024. - Assess Tobacco Use satisfied 01/03/2023. - Follow Up Plan BMI Management satisfied 08/03/2024. * Progress note Date Encounter Last Documented by 04/27/2024 Follow Up Last documented on 04/27/2024; 10:10 AM, Luana Schafer MD; [facility] Active Problems & Conditions - Joint Pain in the Left Hip - Joint Pain in the Right Hip - Joint Pain in the Right Knee - Lower Back Pain Chief Complaint The Chief Complaint is: Low back pain. Referred Here Referred by [facility]- Rad Judd PA-C. History of Present Illness Aurea Gaspar is a 59 year old female. - Allergy list reviewed - Problem list reviewed - Medication list reviewed - Previous history of new onset pain Injury is not work related or an automotive accident - Patient pain level from 1-10: 6 -6 - Yes, previous treatment. - History of Physical Therapy - History of Home Exercise - History of Injections 03/21/2023 L4-5 JULIEN 07/26/2023 L4-5 JULIEN 95% 10 weeks 10/25/2023 L4-5 JULIEN 50% for 8 weeks 01/29/2024 L4-5 JULIEN 90% for 9weeks - - Review of medications documented Medications used for this condition: This is a 59 year old female following up with me after a L4-5 epidural steroid injection. It was reminder, she definitely has severe stenosis at this level, but she also has pretty responses do epidural shots a level typically get 90% or more relief for 9+ weeks and currently still receiving relief. She was very pleased we hopeful to continue for the time being. She completed physical therapy from 2021 thru 2022. We provided her a home exercise program on 02/18/2023 and she continues these exercises daily. Current Medication - Cyclobenzaprine HCl 5 MG Oral Tablet take as directed 90 days, 0 refills - Diclofenac Sodium 50 MG Oral Tablet Delayed Release twice a day, 30 days, 1 refills - Est Estrogens-Methyltest 1.25-2.5 MG Oral Tablet take as directed 90 days, 0 refills - Gabapentin 300 MG Oral Capsule twice a day 30 days, 0 refills - hydroCHLOROthiazide 12.5 MG Oral Capsule once a day 90 days, 0 refills - Hydrocortisone 10 MG Oral Tablet three times a day 30 days, 0 refills - Jardiance 25 MG Oral Tablet once a day 90 days, 0 refills - Nebivolol HCl 5 MG Oral Tablet take as directed 90 days, 0 refills - Nexletol 180 MG Oral Tablet take as directed 90 days, 0 refills - Omeprazole 20 MG Oral Capsule Delayed Release once a day 90 days, 0 refills - Repatha SureClick 140 MG/ML Subcutaneous Solution Auto-injector take as directed 28 days, 0 refills Past Medical/Surgical History Reported: Immunization History: Recent immunization for flu 04/09/2022. No recent immunization for pneumococcal pneumonia. Diagnoses: Heart disease. Sleep Apnea Heartburn / Acid Reflux Liver Disease Hypertension. Arthritis Surgical: - Heart surgery - Appendectomy - Past Surgical History: Sinus sx Breast reduction - Hernia repair - Hysterectomy Social History Not a current smoker. Current diet: Recent change in diet. Caffeine use: Caffeine use. Tobacco use: Tobacco non-user. Alcohol: Not using alcohol. Drug Use: Not using drugs. Habits: Exercising regularly. Allergies - Stadol Family History Heart disease Diabetes mellitus Systemic hypertension Osteoporosis Review Of Systems Systemic: Feeling tired. No recent weight loss. Recent weight gain. Head: Headache and sinus pain. Eyes: Vision problems. No Cataracts. Glasses/Contacts. No Glaucoma. Otolaryngeal: No hearing loss and no tinnitus. Cardiovascular: Chest pain or discomfort, palpitations, Hypertension, and High Cholesterol. Pulmonary: No daytime asthma symptoms and no chronic cough. No wheezing. Gastrointestinal: No heartburn and no abdominal pain. No Indigestion, no Peptic Ulcer, no GI Stomach Bleed, no Ulcers, and no Acid Reflux. Endocrine: Hot flashes. No muscle weakness. Diabetes. No Hypothyroid and no Hyperthyroid. Hematologic: No easy bleeding, no tendency for easy bruising, and no Anemia. Musculoskeletal: No Arthritis. Lower back pain. No soft tissue swelling. Pain localized to one or more joints. Neurological: No dizziness, no convulsions, and no numbness. Psychological: No anxiety, no emotional lability, and no depression. Insomnia. Not crying for no reason. Skin: No dry skin. No Ulcers, no Scars, and no rash. Allergic and Immunologic: Complaint of seasonal allergic reaction. Physical Findings - Vitals taken 04/27/2024 09:24 am HL Height 67 in Weight 207 lbs Body Mass Index 32.4 kg/m2 Body Surface Area 2.1 m2 Pain Level 6 Standard Measurements: - Patient was overweight. General: Alert and Oriented A&Ox3 Focused Musculoskeletal Exam of the Spine: Patient is able to ambulate in the room without assistive device No focal tenderness to palpation in the Lumbar Spine Motor HF KE AD EHL GS Right 5/5 5/5 5/5 5/5 5/5 Left 5/5 5/5 5/5 5/5 5/5 Sensation L2 L3 L4 L5 S1 Right 2 2 2 2 2 Left 2 2 2 2 2 Patellar reflex is 2+ bilaterally Achilles reflex is 2+ bilaterally No ankle clonus Symmetric, palpable posterior tibialis pulse bilaterally User Defined 5 This is a 59-year-old female with lumbar this is neurogenic claudication. It was very nice Aurea in the off. She continues extremely good he has periodic epidural steroid injections we would with periodic L4 epidural shots at this. Assessment - Overweight Previous Tests Musculoskeletal: History of EKG and History of Blood Tests. Imaging: X-Ray: An X-ray was performed 01/03/2023 [facility] @ [facility] 01/06/2024 [facility] @ [facility]. MRI Scan: An MRI was performed 01/15/2023 [facility] @ [facility]. Counseling/Education - Tobacco non-user - Use of tobacco assessment performed - Lose weight Practice Management Use of tobacco assessment performed Review of medications documented. Care Team - LISA UMANA MD - ABSORPTION AND ADSORPTION ENGINEER Notes This dictation was done with voice recognition software and may contain errors and omissions. Health Reminders - Assess BMI satisfied 04/27/2024. - Assess Tobacco Use satisfied 01/03/2023. - Follow Up Plan BMI Management satisfied 04/27/2024. * Progress note Date Encounter Last Documented by 01/08/2024 IN HOUSE REFERRAL Last documente d on 01/08/2024; 8:56 AM, Luis E Snell MD; [facility], [facility] Active Problems & Conditions - Joint Pain in the Left Hip - Joint Pain in the Right Hip - Joint Pain in the Right Knee - Lower Back Pain Chief Complaint The Chief Complaint is: Left Hip Pain. Referred Here Referred by gina arcos. History of Present Illness Aurea Gaspar is a 58 year old female. - Allergy list reviewed - Problem list reviewed - Medication list reviewed Current Medication - Cyclobenzaprine HCl 5 MG Oral Tablet take as directed 90 days, 0 refills - Diclofenac Sodium 50 MG Oral Tablet Delayed Release twice a day, 30 days, 2 refills - Est Estrogens-Methyltest 1.25-2.5 MG Oral Tablet take as directed 90 days, 0 refills - Gabapentin 300 MG Oral Capsule twice a day 30 days, 0 refills - hydroCHLOROthiazide 12.5 MG Oral Capsule once a day 90 days, 0 refills - Hydrocortisone 10 MG Oral Tablet three times a day 30 days, 0 refills - Jardiance 25 MG Oral Tablet once a day 90 days, 0 refills - Nebivolol HCl 5 MG Oral Tablet take as directed 90 days, 0 refills - Nexletol 180 MG Oral Tablet take as directed 90 days, 0 refills - Omeprazole 20 MG Oral Capsule Delayed Release once a day 90 days, 0 refills - Repatha SureClick 140 MG/ML Subcutaneous Solution Auto-injector take as directed 28 days, 0 refills Past Medical/Surgical History Reported: Immunization History: Recent immunization for flu 04/09/2022. No recent immunization for pneumococcal pneumonia. Diagnoses: Heart disease. Sleep Apnea Heartburn / Acid Reflux Liver Disease Hypertension. Arthritis Past medical and surgical history non-contributory. Surgical: - Heart surgery - Appendectomy - Past Surgical History: sinus sx, breast reduction - Past Surgical History: Sinus sx Breast reduction - Hernia repair - Hysterectomy Social History Not a current smoker. Not a current smoker. Current diet: Recent change in diet low fat/carb. Recent change in diet. Caffeine use: Caffeine use. Tobacco use: Tobacco non-user and non-smoker. Alcohol: Not using alcohol. Drug Use: Not using drugs. Habits: Exercising regularly. Allergies - Stadol Family History Heart disease Diabetes mellitus Systemic hypertension Osteoporosis Review Of Systems Systemic: Feeling tired. No recent weight loss. Recent weight gain. Head: Headache and sinus pain. Eyes: Vision problems. No Cataracts. Glasses/Contacts. No Glaucoma. Otolaryngeal: No hearing loss and no tinnitus. Cardiovascular: Chest pain or discomfort, palpitations, Hypertension, and High Cholesterol. Pulmonary: No daytime asthma symptoms and no chronic cough. No wheezing. Gastrointestinal: No heartburn and no abdominal pain. No Indigestion, no Peptic Ulcer, no GI Stomach Bleed, no Ulcers, and no Acid Reflux. Endocrine: Hot flashes. No muscle weakness. Diabetes. No Hypothyroid and no Hyperthyroid. Hematologic: No easy bleeding, no tendency for easy bruising, and no Anemia. Musculoskeletal: No Arthritis. Lower back pain. No soft tissue swelling. Pain localized to one or more joints. Neurological: No dizziness, no convulsions, and no numbness. Psychological: No anxiety, no emotional lability, and no depression. Insomnia. Not crying for no reason. Skin: No dry skin. No Ulcers, no Scars, and no rash. Allergic and Immunologic: Complaint of seasonal allergic reaction. Assessment 58-year-old female presenting for evaluation of her left knee. She reports she has had symptoms for at least 4 months probably bit longer but reports that over the last 3 4 months it is significantly improved. Pain is along the medial side of her knee worse with increased activity bending squatting type activities and going to the gym. She reports this is a low-level pain that is there almost constantly but this is worsened with activity. She is trialed conservative treatment including cortisone injection physical therapy and strengthening exercises and activity modification however symptoms persist. Of note she had a response to having multiple injections and a close time. Wear a cortisol level 1-0 she is currently on steroid supplementation with a plan to be weaning off by about 6 weeks from now. She has a history of cardiac stent placement which she follows with cardiology every 6 months. She is history of diabetes she reports her last A1c was 6.9. Physical exam: CONSTITUTIONAL: Well developed, well groomed, well nourished patient in no acute distress who appears stated age, height and weight. PSYCHIATRIC: The patient is alert and oriented to person, place, date and situation. Mood and affect are normal for current situation. GAIT AND STATION: Antalgic gait without assistive devices. Station normal. LEFT KNEE: No Deformity. No discoloration. No Atrophy. tenderness to palpation over the medial joint line that reproduces her symptoms. No crepitation. No effusion. Active Range of Motion: Extension 0 degrees, Flexion 130 degrees. Passive Range of Motion: not limited. Strength: 5/5 quadriceps. 5/5 Hamstrings. Negative Yesi's. Negative posterior drawer. Negative valgus instability. Negative varus instability. Positive Medial McMurrays with pain over the medial joint line. Negative Lateral McMurrays. Normal patella mobility. Negative patella apprehension. Sensation intact in the saphenous, sural, deep peroneal, superficial peroneal, and tibial distribution. Able to fire EHL, FHL, gastroc, soleus, peroneals, and tibialis anterior. Warm and well-perfused distally Imaging: X-rays of the left knee are available for review. They show no significant loss of joint space in all 3 compartments of the knee. MRI of the left knee is available for review it shows evidence of medial meniscus tear with a flipped and displaced segment of the meniscus into the medial gutter. This is best seen on the coronal views. There is some thinning of the medial compartment cartilage no areas of full-thickness cartilage loss. No areas of subchondral bony edema or subchondral cystic changes. Assessment and plan: 58-year-old with multiple month history of left knee pain related to medial meniscus tear. Reviewed her imaging. We did discuss that the flipped and displaced type meniscus tear is typically very symptomatic she has been refractory to conservative measures including time, activity modification, physical therapy exercises and injections. We discussed continued conservative treatment versus operative intervention. She is interested in proceeding with surgery. Plan will be for a left knee arthroscopy with partial medial meniscectomy as well as any other indicated procedures. Risks and benefits of surgery were discussed including but not limited to bleeding, infection, injury to surrounding structures such as blood vessels tendons and nerves. We discussed the possibility of surgical procedure failure, decreased function, progression to arthritic change, persistent pain, loss of motion, persistent stiffness, persistent weakness, and the need for a revision surgery or future total knee arthroplasty. In addition, we discussed the risk of heart attack, stroke, or . patient understands these as well as alternative forms of treatment and does wish to proceed. She will need cardiac clearance, endocrine clearance, and ensure her A1c was within appropriate levels. Previous Tests Musculoskeletal: History of EKG and History of Blood Tests. Imaging: X-Ray: An X-ray was performed. Counseling/Education - Lose weight Notes This dictation was done with voice recognition software and may contain errors and omissions. Practice Management Use of tobacco assessment performed Review of medications documented. Care Team - LISA UMANA MD - ABSORPTION AND ADSORPTION ENGINEER * Progress note Date Encounter Last Documented by 01/06/2024 Follow Up Last documented on 01/06/2024; 10:28 AM, Luana Schafer MD; [facility], [facility] Active Problems & Conditions - Joint Pain in the Left Hip - Joint Pain in the Right Hip - Joint Pain in the Right Knee - Lower Back Pain Chief Complaint The Chief Complaint is: Low back pain. Referred Here Referred by R- Rad Judd PA-C. History of Present Illness Aurea Gaspar is a 58 year old female. - Allergy list reviewed - Problem list reviewed - Medication list reviewed - Medication list reviewed - Previous history of new onset pain Injury is not work related or an automotive accident - Patient pain level from 1-10: 5 -6 - Yes, previous treatment. - History of Physical Therapy - History of Home Exercise - History of Injections 03/21/2023 L4-5 JULIEN 07/26/2023 L4-5 JULIEN 95% 10 weeks 10/25/2023 L4-5 JULIEN 50% for 8 weeks - - Review of medications documented Medications used for this condition: This is a 58-year-old female following up with me on lumbar stenosis and a potentially low-grade but slightly mobile L4-5 spondylolisthesis. She was done very well with periodic epidural steroid injections stating 85% pain relief for 3 months. 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 She states she also continues the home exercise program we provided her on 02/17/2023 daily. Current Medication - Cyclobenzaprine HCl 5 MG Oral Tablet take as directed 90 days, 0 refills - Diclofenac Sodium 50 MG Oral Tablet Delayed Release twice a day, 30 days, 2 refills - Est Estrogens-Methyltest 1.25-2.5 MG Oral Tablet take as directed 90 days, 0 refills - Gabapentin 300 MG Oral Capsule twice a day 30 days, 0 refills - hydroCHLOROthiazide 12.5 MG Oral Capsule once a day 90 days, 0 refills - Hydrocortisone 10 MG Oral Tablet three times a day 30 days, 0 refills - Jardiance 25 MG Oral Tablet once a day 90 days, 0 refills - Nebivolol HCl 5 MG Oral Tablet take as directed 90 days, 0 refills - Nexletol 180 MG Oral Tablet take as directed 90 days, 0 refills - Omeprazole 20 MG Oral Capsule Delayed Release once a day 90 days, 0 refills - Repatha SureClick 140 MG/ML Subcutaneous Solution Auto-injector take as directed 28 days, 0 refills Past Medical/Surgical History Reported: Immunization History: Recent immunization for flu 04/09/2022. No recent immunization for pneumococcal pneumonia. Diagnoses: Heart disease. Sleep Apnea Heartburn / Acid Reflux Liver Disease Hypertension. Arthritis Surgical: - Heart surgery - Appendectomy - Past Surgical History: Sinus sx Breast reduction - Hernia repair - Hysterectomy Social History Not a current smoker. Current diet: Recent change in diet. Caffeine use: Caffeine use. Tobacco use: Tobacco non-user. Alcohol: Not using alcohol. Drug Use: Not using drugs. Habits: Exercising regularly. Allergies - Stadol Family History Heart disease Diabetes mellitus Systemic hypertension Osteoporosis Review Of Systems Systemic: Feeling tired. No recent weight loss. Recent weight gain. Head: Headache and sinus pain. Eyes: Vision problems. No Cataracts. Glasses/Contacts. No Glaucoma. Otolaryngeal: No hearing loss and no tinnitus. Cardiovascular: Chest pain or discomfort, palpitations, Hypertension, and High Cholesterol. Pulmonary: No daytime asthma symptoms and no chronic cough. No wheezing. Gastrointestinal: No heartburn and no abdominal pain. No Indigestion, no Peptic Ulcer, no GI Stomach Bleed, no Ulcers, and no Acid Reflux. Endocrine: Hot flashes. No muscle weakness. Diabetes. No Hypothyroid and no Hyperthyroid. Hematologic: No easy bleeding, no tendency for easy bruising, and no Anemia. Musculoskeletal: No Arthritis. Lower back pain. No soft tissue swelling. Pain localized to one or more joints. Neurological: No dizziness, no convulsions, and no numbness. Psychological: No anxiety, no emotional lability, and no depression. Insomnia. Not crying for no reason. Skin: No dry skin. No Ulcers, no Scars, and no rash. Allergic and Immunologic: Complaint of seasonal allergic reaction. Physical Findings - Vitals taken 01/06/2024 08:57 am LC Height 67 in Weight 207 lbs 6.4 oz Body Mass Index 32.5 kg/m2 Body Surface Area 2.1 m2 Standard Measurements: - Patient was overweight. General: Alert and Oriented A&Ox3 Focused Musculoskeletal Exam of the Spine: Patient is able to ambulate in the room without assistive device No focal tenderness to palpation in the Lumbar Spine Motor HF KE AD EHL GS Right 5/5 5/5 5/5 5/5 5/5 Left 5/5 5/5 5/5 5/5 5/5 Sensation L2 L3 L4 L5 S1 Right 2 2 2 2 2 Left 2 2 2 2 2 Patellar reflex is 2+ bilaterally Achilles reflex is 2+ bilaterally No ankle clonus Symmetric, palpable posterior tibialis pulse bilaterally Tests 4v lumbar spine xrays Ap, lateral, flexion and extension views of the lumbar spine were obtained today There is redemonstration of a very low-grade L4-5 spondylolisthesis that has not changed compared to her old images User Defined 5 This is a 58-year-old female with lumbar stenosis and a very low-grade L4-5 spondylolisthesis. I had a long discussion with Aurea in the office today. She told me that her director of federal sales told her that as long as she only has a lumbar epidural steroid injection that she was okay to proceed with corticosteroid shots for now but she would recommend against any further shots in his short time frame. I think that is very smart. In fact I am sort of leery to give her anymore, but given that her director of federal sales who is okay with it I think we can proceed for now. If the shot helps the way they used to then I think we can proceed with periodic epidural shots. If not, I think we will be discussing what surgery would look like in her case. Assessment - Overweight Previous Tests Musculoskeletal: History of EKG and History of Blood Tests. Imaging: X-Ray: An X-ray was performed 01/03/2023 Janessa @ [facility] 01/06/2024 Janessa @ [facility]. MRI Scan: An MRI was performed 01/15/2023 Janessa @ [facility]. Counseling/Education - Tobacco non-user - Use of tobacco assessment performed - Lose weight Practice Management Use of tobacco assessment performed Review of medications documented. Care Team - LISA BESSON, MD - ABSORPTION AND ADSORPTION ENGINEER Notes This dictation was done with voice recognition software and may contain errors and omissions. Health Reminders - Assess BMI satisfied 01/06/2024. - Assess Tobacco Use satisfied 01/03/2023. - Follow Up Plan BMI Management satisfied 01/06/2024. * Progress note Date Encounter Last Documented by 12/12/2023 Follow Up Last documented on 12/13/2023; 10:58 AM, Praveen Webster MD; [facility], [facility] Active Problems & Conditions - Joint Pain in the Left Hip - Joint Pain in the Right Hip - Joint Pain in the Right Knee - Lower Back Pain Chief Complaint The Chief Complaint is: Left Hip Pain. Referred Here Referred by gina arcos. History of Present Illness Aurea Gaspar is a 58 year old female. - Allergy list reviewed - Problem list reviewed - Medication list reviewed Current Medication - Cyclobenzaprine HCl 5 MG Oral Tablet take as directed 90 days, 0 refills - Est Estrogens-Methyltest 1.25-2.5 MG Oral Tablet take as directed 90 days, 0 refills - Gabapentin 300 MG Oral Capsule take as directed 30 days, 0 refills - hydroCHLOROthiazide 12.5 MG Oral Capsule take as directed 90 days, 0 refills - Hydrocortisone 10 MG Oral Tablet 3 days, 0 refills - Jardiance 25 MG Oral Tablet take as directed 90 days, 0 refills - Nebivolol HCl 5 MG Oral Tablet take as directed 90 days, 0 refills - Nexletol 180 MG Oral Tablet take as directed 90 days, 0 refills - Omeprazole 20 MG Oral Capsule Delayed Release take as directed 90 days, 0 refills - Repatha SureClick 140 MG/ML Subcutaneous Solution Auto-injector take as directed 28 days, 0 refills Past Medical/Surgical History Reported: Immunization History: Recent immunization for flu 04/09/2022. No recent immunization for pneumococcal pneumonia. Diagnoses: Heart disease. Sleep Apnea Heartburn / Acid Reflux Liver Disease Hypertension. Arthritis Past medical and surgical history non-contributory. Surgical: - Heart surgery - Appendectomy - Past Surgical History: sinus sx, breast reduction - Past Surgical History: Sinus sx Breast reduction - Hernia repair - Hysterectomy Social History Not a current smoker. Not a current smoker. Current diet: Recent change in diet low fat/carb. Recent change in diet. Caffeine use: Caffeine use. Tobacco use: Tobacco non-user and non-smoker. Alcohol: Not using alcohol. Drug Use: Not using drugs. Habits: Exercising regularly. Allergies - Stadol Family History Heart disease Diabetes mellitus Systemic hypertension Osteoporosis Review Of Systems Systemic: Feeling tired. No recent weight loss. Recent weight gain. Head: Headache and sinus pain. Eyes: Vision problems. No Cataracts. Glasses/Contacts. No Glaucoma. Otolaryngeal: No hearing loss and no tinnitus. Cardiovascular: Chest pain or discomfort, palpitations, Hypertension, and High Cholesterol. Pulmonary: No daytime asthma symptoms and no chronic cough. No wheezing. Gastrointestinal: No heartburn and no abdominal pain. No Indigestion, no Peptic Ulcer, no GI Stomach Bleed, no Ulcers, and no Acid Reflux. Endocrine: Hot flashes. No muscle weakness. Diabetes. No Hypothyroid and no Hyperthyroid. Hematologic: No easy bleeding, no tendency for easy bruising, and no Anemia. Musculoskeletal: No Arthritis. Lower back pain. No soft tissue swelling. Pain localized to one or more joints. Neurological: No dizziness, no convulsions, and no numbness. Psychological: No anxiety, no emotional lability, and no depression. Insomnia. Not crying for no reason. Skin: No dry skin. No Ulcers, no Scars, and no rash. Allergic and Immunologic: Complaint of seasonal allergic reaction. Physical Findings - Vitals taken 12/12/2023 09:39 am SV Height 67 in Weight 192 lbs Body Mass Index 30.1 kg/m2 Body Surface Area 2 m2 PATIENT ORIENTED WITH NORMAL APPEARANCE GAIT: NORMAL TA/GAS: 5/5 RIGHT HIP: ROM: FLEXION: 130 DEGREES IR: 30 DEGREES ER: 60 DEGREES LEFT HIP: ROM: FLEXION: 125 DEGREES IR: 30 DEGREES ER: 40 DEGREES RIGHT KNEE: ROM: 0-130 DEGREES EXCELLENT PATELLAR MOBILITY SEVERE MEDIAL JOINT LINE TENDERNESS MINIMAL LATERAL JOINT LINE TENDERNESS SKIN WNL LEFT KNEE: ROM: 0-140 DEGREES EXCELLENT MOBILITY WITH SOME DISCOMFORT SEVERE MEDIAL JOINT LINE TENDERNESS MINIMAL LATERAL JOINT LINE TENDERNESS SKIN WNL Tests PELVIS XR (1 VIEW): WELL APPEARING BILATERAL THAs WITH NO WEAR OR LOOSENING Assessment SUSPECT LEFT KNEE MMT IS HER GREATEST ISSUE. RIGHT KNEE BETTER FOLLOWING CORTISONE INJECTION AND TREATMENT WITH HYDROCORTISONE BY PROGRESSIVE DIE MAKER FOR CORTISOL OF ZERO FOLLOWING SPINE INJECTION AND KNEE INJECTION 3 WEEKS LATER. RIGHT KNEE MODERATE-SEVERE MEDIAL COMPARTMENT DJD. TAKING DICLOFENAC AT NIGHT. Previous Tests Musculoskeletal: History of EKG and History of Blood Tests. Imaging: Intravascular Ultrasound (Coronary Vessel/Graft): An X-ray was performed. Counseling/Education - Lose weight Plan StartCited - Bilateral primary osteoarthritis of knee Radiology/MRI: MRI Knee EndCited StartCited - Other Diclofenac Sodium 50 MG tablet twice a day, 30 days, 2 refills EndCited NON-SURGICAL PLAN: WEIGHT LOSS IMPROVE SHOES DISCUSS RIGHT KNEE INJECTION WITH PROGRESSIVE DIE MAKER IF NEEDED TESTS ORDERED: LEFT KNEE MRI TO EVALUATE MMT REFERRAL TO: DR. SNELL TO EVALUATE AND TREAT MRI FOLLOW UP: 6 MONTH FOR BILATERAL KNEE EVALUATION AND POSSIBLE RIGHT KNEE CORTISONE INJECTION IF OK WITH ENDOCRINOLGY Notes This dictation was done with voice recognition software and may contain errors and omissions. transcribed by Yevgeniy Bauer Practice Management Use of tobacco assessment performed Review of medications documented. Care Team - LISA UMANA MD - ABSORPTION AND ADSORPTION ENGINEER
--- OUTSIDE RECORDS SUMMARY | 2024-10-19 09:01 | XMS_ITS | Clinical Summary ---
Author Organization [facility] , [facility] Address [address] [place] [address] Phone Care Team Providers Care Glass Novelty Maker Name Role Phone DONG PAREDES, LISA Unavailable [phone] Darin PAREDES, Praveen Chu Unavailable [phone] Reason for Visit and Chief Complaint The Chief Complaint is: Low back pain Problems Includes: Problems addressed during this encounter and other active Problems Current Visit Onset Date Resolved Date Provider Conditio n Status Lower Back Pain 01/22/2023 ARIANNA NOVA PA-C Active Last Documented On 3 2:45PM ; [facility], [facility] Past Visits Onset Date Resolved Date Provider Condition Status Joint Pain in the Right Knee 09/12/2023 Senthil Flynn PA-C Active Last Documented On 4 8:53AM ; [facility], [facility] Joint Pain in the Left Hip 05/22/2022 Senthil rodriguez PA-C Active Last Documented On 2 9:33AM ; [facility], [facility] Joint Pain in the Right Hip 05/19/2020 Arcelia Webster MD Active Last Documented On 0 12:35PM ; [facility], [facility] Plan of Treatment Future Appointments Date Time Location Provi wily Follow Up 11/10/2024 9:30AM [facility] WEI Lord MD Last Documented On 5 8:54AM ; [facility], [facility] Epidural Steroid Injection 11/18/2024 8:30AM [facility] WEI Trevino CRNA Last Documented On 5 8:54AM ; [facility], [facility] Instructions to patient Lose weight Last Documented On 5 9:14AM ; [facility], [facility] Assessments Includes: Assessments from this encounter Findings - Overweight - Last Documented On 09/14/2024 12:29PM ; [facility], [facility] Instructions Includes: Instructions from this encounter Instructions to patient Lose weight Last Documented On 5 9:14AM ; [facility], [facility] Medical Equipment - Implanted Devices Includes: Current Devices No Medical Equipment Recorded Medications Includes: Medications discussed during this encounter and other current Medications Current Medications (continue as prescribed) Jardiance 25 MG Oral Tablet 12/27/2023 Provider: LISA UMANA MD Diagnosis: Last Documented On 4 8:54AM By Tamara Bermudez ; [facility], [facility] hydroCHLOROthiazide 12.5 MG Oral Capsule 12/26/2023 Provider: Venita holcomb APRN Diagnosis: Last Documented On 4 8:54AM By Tamara Bermudez ; [facility], [facility] Hydrocortisone 10 MG Oral Tablet 12/21/2023 Provider : ANNAMARIA MANN MD Diagnosis: Last Documented On 4 8:54AM By Tamara Bermudez ; [facility], [facility] Gabapentin 300 MG Oral Capsule 11/21/2023 Provider: LISA UMANA MD Diagnosis: Last Documented On 4 8:54AM By Tamara Bermudez ; [facility], [facility] Omeprazole 20 MG Oral Capsule Delayed Release 11/17/19 Provider: LISA UMANA MD Diagnosis: Last Documented On 4 8:54AM By Tamara Bermudez ; [facility], [facility] Nexletol 180 MG Oral Tablet 08/27/2023 Provider: LISA UMANA MD Diagnosis: Last Documented On 4 8:46AM By Tamara Bermudez ; [facility], [facility] Repatha SureClick 140 MG/ML Subcutaneous Solution Auto-injector 08/25/2023 Provider: LISA UMANA MD Diagnosis: Last Documented On 4 8:46AM By Tamara Bermudez ; [facility], [facility] Est Estrogens-Methyltest 1.25-2.5 MG Oral Tablet 08/19 Provider: Diagnosis: Last Documented On 4 8:46AM By Tamara Bermudez ; [facility], [facility] Cyclobenzaprine HCl 5 MG Oral Tablet 08/13/2023 Prov ider: Veniat Will Marcie LORENZANA Diagnosis: Last Documented On 4 8:46AM By [...] By Darya Seo ; [facility] Aspirin 81 MG [...] On 2 10:50AM By Kevin Webster ; [facility], [facility] Colace 100 MG Oral Capsule 06/04/2022 - 09/02/2022 Provider: Praveen lazcano MD Diagnosis: 1-2 tabs daily sx Last Documented On 2 10:50AM By Kevin Webster ; [facility], [facility] Meloxicam 15 MG Oral Tablet 06/04/2022 - 06/18/2022 Provider: Praveen lazcano MD Diagnosis: once a day sx Last Documented On 2 10:50AM By Kevin Webster ; [facility], [facility] Ondansetron HCl 4 MG Oral Tablet 06/04/2022 - 06/09/2022 Provider: Praveen Webster MD Diagnosis: 1wbr2-9z sx Last Documented On 2 10:50AM By Kevin Webster ; [facility], [facility] Medications Administered Includes: Administered Medications from this encounter No Administered Medications Recorded Vital Signs Includes: Vital Signs from this encounter Vital Name 08/03/2024 09:21A Height (in) 67 Weight (lb) 200 Body Mass Index 31.3 Body Surface Area 2 Pain Level 3 Note: cd Last Documented: On 08/03/2024 9:21AM ; [facility], [facility] Results Includes: Results discussed during this encounter No Results Recorded For Specified Dates History of Present Illness Includes: History of Present Illness from this encounter HPI Aurea Gaspar is a 59 year old [...] is a 59-year-old female following up with nh on lumbar stenosis and an L4-5 spondylolisthes. She continues to have great pain relief with periodic L4-5 epidural steroid injections. She said she gets about 90% relief for about 13 weeks. Social History Description Last Updated Not a current smoker. 09/12/2023 Last Documented On 5 9:14AM ; [facility] Tobacco non-user 01/03/2023 Last Documented On 5 9:14AM ; [facility] Recent change in diet 01/03/2023 Last Documented On 5 9:14AM ; [facility] Caffeine use 05/19/2020 Last Documented On 5 9:14AM ; [facility] Exercising regularly 05/19/2020 Last Documented On 5 9:14AM ; [facility] Not using alcohol 05/19/2020 Last Documented On 5 9:14AM ; [facility] Not using drugs 05/19/2020 Last Documented On 5 9:14AM ; [facility] Smoking Status Unknown Procedures and Surgical History Includes: Procedures from this encounter Procedures Code Diagnosis Performing Provider Service L ocation Service Date use of tobacco assessment performed 1000F Last Documented On 5 9:14AM ; [facility] review of medications documented 1160F Last Documented On 5 9:14AM ; [facility] an X-ray was performed 01/03/2023 [facility] @ [facility] ~ 01/06/2024 [facility] @ [facility] [id number] Last Documented On 5 9:14AM ; [facility] an MRI was performed 01/15/2023 [facility] @ [id number] Last Documented On 5 9:14AM ; [facility] History of EKG Last Documented On 5 9:14AM ; [facility] History of Blood Tests Last Documented On 5 9:14AM ; [facility] Surgical History Last Updated Past Surgical History: Sinus sx ~Breast reduction 09/04/2023 Last Documented On 5 9:14AM ; [facility] Medical History Includes: Medical History addressed during this encounter Description Last Updated No recent immunization for pneumococcal pneumonia 05/22/2022 Last Documented On 5 9:14AM ; [facility] Recent immunization for flu 04/09/2022 1 07/22/2021 Last Documented On 5 9:14AM ; [facility] Arthritis 05/19/2020 Last Documented On 5 9:14AM ; [facility] Heartburn / Acid Reflux 05/19/2020 Last Documented On 5 9:14AM ; [facility] History of heart disease 05/19/2020 Last Documented On 5 9:14AM ; [facility] Hypertension 05/19/2020 Last Documented On 5 9:14AM ; [facility] Liver Disease 05/19/2020 Last Documented On 5 9:14AM ; [facility] Sleep Apnea 05/19/2020 Last Documented On 5 9:14AM ; [facility] Appendectomy 05/19/2020 Last Documented On 5 9:14AM ; [facility] Heart surgery 05/19/2020 Last Documented On 5 9:14AM ; [facility] Hernia repair 05/19/2020 Last Documented On 5 9:14AM ; [facility] Hysterectomy 05/19/2020 Last Documented On 5 9:14AM ; [facility] Family History Includes: Family History addressed during this encounter Description Last Updated Diabetes mellitus 05/19/2020 Last Documented On 5 9:14AM ; [facility] Family history of heart disease 05/19/20 20 Last Documented On 5 9:14AM ; [facility] Family history of hypertension 0 Last Documented On 5 9:14AM ; [facility] Family history of osteoporosis 0 Last Documented On 5 9:14AM ; [facility] Review of Systems Includes: Review of Systems from this encounter Systemic: Feeling tired. No recent weight loss. [...] and Immunologic: Complaint of seasonal allergic reaction. Mental Status Includes: Mental Status from this encounter Description No anxiety Functional Status Includes: Functional Status from this encounter No Functional Status Recorded Physical Exam Includes: Physical Exam from this encounter Allergies Includes: Active Allergies Substance Type Reaction Onset Date Resolved Date Statu s Stadol Allergy 01/03/2023 Active Last Documented On 5 1:17PM ; [facility] Encounters Encounter Provider Location Date Check-In Time Check-Out Time Diagnosis Follow Up Luana boland MD [facility] 5 9:06AM 9:46AM Overweight Insurance Includes: Active Insurance Policies Plan Name Member ID Group # Subscriber Relationship Effect jeanine Dates 1 - [facility] [id number] Aurea Gaspar Self 07/08/2022 - Unknown Clinical Notes Includes: Clinical Notes from this encounter * Progress note Date Encounter Last Documented by 08/03/2024 Follow Up Last documented on 09/14/2024; 12:29 PM, Luana Schafer MD; [facility] Active Problems & Conditions - Joint Pain [...] of Blood Tests. Imaging: X-Ray: X-ray 01/03/2023 [facility] @ [facility] 01/06/2024 [facility]. MRI Scan: An MRI was performed 01/15/2023 [facility] @ [facility]. Counseling/Education - Tobacco non-user - Use of tobacco assessment performed - Lose weight Practice Management Use of tobacco assessment performed Review of medications documented. Care Team - LISA UMANA MD - PUBLIC HEALTH PROGRAM MANAGER Notes This dictation was done with voice recognition software and may contain errors and omissions. Health Reminders - Assess BMI satisfied 08/03/2024. - Assess Tobacco Use satisfied 01/03/2023. - Follow Up Plan BMI Management satisfied 08/03/2024.
--- OUTSIDE RECORDS SUMMARY | 2024-10-19 09:01 | XMS_ITS ---
Care Plan - [facility], [facility] Created on: October 19, 2024 Hubert Aurea : 1965 Sex: Female Author Organization [facility] , [facility] Address [address] [place] [phone] Phone Care Team Providers Care Harmonica Maker Name Role Phone DONG PAREDES, LISA Unavailable [phone] Darin PAREDES, Praveen Chu Unavailable [phone]
--- OUTSIDE RECORDS SUMMARY | 2024-10-19 09:01 | XMS_ITS | Clinical Summary ---
Author Organization [facility] , [facility] Address [address] [place] [address] Phone Care Team Providers Care Continuous Mining Machine Company Miner Name Role Phone DONG PAREDES, LISA Unavailable [phone] Darin PAREDES, Praveen Chu Unavailable [phone] Reason for Visit and Chief Complaint Epidural Steroid Injection Problems Includes: Problems addressed during this encounter and other active Problems All Visits Onset Date Resolved Date Provider Condition S tatus Joint Pain in the Right Knee 09/12/2023 Senthil Flynn PA-C Active Last Documented On 4 8:53AM ; [facility] Lower Back Pain 01/22/2023 ARIANNA NOVA PA-C Active Last Documented On 3 2:45PM ; [facility] Joint Pain in the Left Hip 05/22/2022 Senthil rodriguez PA-C Active Last Documented On 2 9:33AM ; [facility] Joint Pain in the Right Hip 05/19/2020 Arcelia Webster MD Active Last Documented On 0 12:35PM ; [facility] Plan of Treatment Pending Tests Order Diagnosis Results Due Ordering Rossy soler Lab Hemoglobin A1c 01/27/24 Zain Trevino CREATIVE STRATEGIST Last Documented On 4 8:15AM ; [facility] Lab CBC With Differential/Platelet 01/26 Zain Trevino CREATIVE STRATEGIST Last Documented On 4 8:15AM ; [facility] Lab Comp. Metabolic Panel (14) 01/27/24 Zain Trevino CREATIVE STRATEGIST Last Documented On 4 8:15AM ; [facility] Lab Hemoglobin A1c 01/27/24 Zain Trevino CREATIVE STRATEGIST Last Documented On 4 8:19AM ; [facility] Lab CBC With Differential/Platelet 01/26 Zain Trevino CREATIVE STRATEGIST Last Documented On 4 8:19AM ; [facility] Lab Comp. Metabolic Panel (14) 01/27/24 Zain Trevino CREATIVE STRATEGIST Last Documented On 4 8:19AM ; [facility], [facility] Future Appointments Date Time Location Provi wily Follow Up 11/10/2024 9:30AM [facility] WEI Lord MD Last Documented On 5 8:54AM ; [facility], [facility] Epidural Steroid Injection 11/18/2024 8:30AM [facility] Zain Trevino CREATIVE STRATEGIST Last Documented On 5 8:54AM ; [facility] Assessments Includes: Assessments from this encounter No Assessments Recorded Medical Equipment - Implanted Devices Includes: Current Devices No Medical Equipment Recorded Medications Includes: Medications discussed during this encounter and other current Medications Current Medications (continue as prescribed) Jardiance 25 MG Oral Tablet 12/27/2023 Provider: LISA UMANA MD Diagnosis: Last Documented On 4 8:54AM By Tamara Bermudez ; [facility], [facility] hydroCHLOROthiazide 12.5 MG Oral Capsule 12/26/2023 Provider: Venita holcomb APRN Diagnosis: Last Documented On 4 8:54AM By Tamara Bermudez ; [facility] Hydrocortisone 10 MG Oral Tablet 12/21/2023 Provider : ANNAMARIA MANN MD Diagnosis: Last Documented On 4 8:54AM By Tamara Bermudez ; [facility], [facility] Gabapentin 300 MG Oral Capsule 11/21/2023 Provider: LISA UMANA MD Diagnosis: Last Documented On 4 8:54AM By Tamara Bermudez ; [facility], [facility] Omeprazole 20 MG Oral Capsule Delayed Release 11/17/19 Provider: LISA UMANA MD Diagnosis: Last Documented On 4 8:54AM By Tamara Bermudez ; [facility], [facility] Nexletol 180 MG Oral Tablet 08/27/2023 Provider: LISA UMANA MD Diagnosis: Last Documented On 4 8:46AM By Tamara Bermudez ; [facility] Repatha SureClick 140 MG/ML Subcutaneous Solution Auto-injector 08/25/2023 Provider: LISA UMANA MD Diagnosis: Last Documented On 4 8:46AM By Tamara Bermudez ; [facility] Est Estrogens-Methyltest 1.25-2.5 MG Oral Tablet 08/19 Provider: Diagnosis: Last Documented On 4 8:46AM By Tamara Bermudez ; [facility] Cyclobenzaprine HCl 5 MG Oral Tablet 08/13/2023 Prov ider: Venita Jack APRN Diagnosis: Last Documented On 4 8:46AM By Tamara Bermudez ; [facility] Nebivolol HCl 5 MG Oral Tablet 08/12/2023 Provider: Sobeida Liu MD Diagnosis: Last Documented On 4 8:46AM By Tamara Bermudez ; [facility] Medications Administered Includes: Administered Medications from this encounter No Administered Medications Recorded Results Includes: Results discussed during this encounter No Results Recorded For Specified Dates History of Present Illness Includes: History of Present Illness from this encounter No History of Present Illness Recorded Social History No Social History Recorded - Smoking Status Unknown Procedures and Surgical History Includes: Procedures from this encounter Procedures Code Diagnosis Performing Provider Service Location Service Date Lumbar epidural 24844 Spinal stenosis, lumbar region with neurogenic claudication Zain Trevino CRNA [facility] 08/12/2024 Last Documented On 5 11:34AM ; [facility] Triamcinolone/Kenalog, 10mg per cc [id number] Spinal stenosis, lumbar region with neurogenic claudication Zain Trevino CRNA [facility] 08/12/2024 Last Documented On 5 11:34AM ; [facility] Medical History Includes: Medical History addressed during this encounter No Medical History Recorded Family History Includes: Family History addressed during this encounter No Family History Recorded Review of Systems Includes: Review of Systems from this encounter No Review of Systems Recorded Mental Status Includes: Mental Status from this encounter No Mental Status Recorded Functional Status Includes: Functional Status from this encounter No Functional Status Recorded Physical Exam Includes: Physical Exam from this encounter No Physical Exam Recorded Allergies Includes: Active Allergies Substance Type Reaction Onset Date Resolved Date Statu s Stadol Allergy 01/03/2023 Active Last Documented On 5 1:17PM ; [facility] Encounters Encounter Provider Location Date Check-In Time Check-Out Time Diagnosis Epidural Steroid Injection Zain Trevino CRNA [facility] 08/12/19 25 8:22AM 8:50AM Insurance Includes: Active Insurance Policies Plan Name Member ID Group # Subscriber Relationship Effect jeanine Dates 1 - [facility] [id number] Aurea Gaspar Self 07/08/2022 - Unknown Clinical Notes Includes: Clinical Notes from this encounter No Clinical Notes Recorded
--- OUTSIDE RECORDS SUMMARY | 2024-10-19 09:01 | XMS_ITS | Clinical Summary ---
Author Organization [facility] , [facility] Address [address] [place] [address] Phone Care Team Providers Care Building Supervisor Name Role Phone DONG PAREDES, LISA Unavailable [phone] Darin PAREDES, Praveen Chu Unavailable [phone] Reason for Visit and Chief Complaint The Chief Complaint is: Left Hip Pain Problems Includes: Problems addressed during this encounter and other active Problems Current Visit Onset Date Resolved Date Provider Conditio n Status Lower Back Pain 01/22/2023 ARIANNA NOVA PA-C Active Last Documented On 3 2:45PM ; [facility] Past Visits Onset Date Resolved Date Provider Condition Status Joint Pain in the Right Knee 09/12/2023 Senthil Flynn PA-C Active Last Documented On 4 8:53AM ; [facility] Joint Pain in the Left Hip 05/22/2022 Senthil rodriguez PA-C Active Last Documented On 2 9:33AM ; [facility] Joint Pain in the Right Hip 05/19/2020 Arcelia Webster MD Active Last Documented On 0 12:35PM ; [facility] Plan of Treatment Patient is 3 and 4 years postop bilateral total hip arthroplasties. Doing well no complaints. Continue with ad tom activity. Follow up in the office in 5 years or PRN - Last Documented On 09/23/2024 2:33PM ; [facility], [facility] Pending Tests Order Diagnosis Results Due Ordering P rovider Radiology - MRI MRI Lumbar Spine Pain in left hip 01/17/23 Ajay Judd PA-C Last Documented On 3 9:34AM ; [facility] Future Appointments Date Time Location Provi wily Follow Up 11/10/2024 9:30AM [facility] Lord MD Last Documented On 5 8:54AM ; [facility], [facility] Epidural Steroid Injection 11/18/2024 8:30AM [facility] Trevino CRNA Last Documented On 5 8:54AM ; [facility], [facility] Instructions to patient Lose weight Last Documented On 5 1:17PM ; [facility], [facility] Assessments Includes: Assessments from this encounter Findings - Overweight - Last Documented On 09/23/2024 2:33PM ; [facility], [facility] Bilateral total hip arthroplasties - Last Documented On 09/23/2024 2:33PM ; [facility], [facility] Instructions Includes: Instructions from this encounter Instructions to patient Lose weight Last Documented On 5 1:17PM ; [facility], [facility] Medical Equipment - Implanted Devices Includes: Current Devices No Medical Equipment Recorded Medications Includes: Medications discussed during this encounter and other current Medications Current Medications (continue as prescribed) Jardiance 25 MG Oral Tablet 12/27/2023 Provider: LISA UMANA MD Diagnosis: Last Documented On 4 8:54AM By Tamara Bermudez ; [facility], [facility] hydroCHLOROthiazide 12.5 MG Oral Capsule 12/26/2023 Provider: Venita holcomb APRN Diagnosis: Last Documented On 4 8:54AM By Tamara Bermudez ; [facility], [facility] Hydrocortisone 10 MG Oral Tablet 12/21/2023 Provider : ANNAMARIA MANN MD Diagnosis: Last Documented On 4 8:54AM By Tamara Bermudez ; [facility], [facility] Gabapentin 300 MG Oral Capsule 11/21/2023 Provider: LISA UMANA MD Diagnosis: Last Documented On 4 8:54AM By Tamara Bermudez ; [facility], [facility] Omeprazole 20 MG Oral Capsule Delayed Release 11/17/19 Provider: LISA UMANA MD Diagnosis: Last Documented On 4 8:54AM By Tamara Bermudez ; [facility], [facility] Nexletol 180 MG Oral Tablet 08/27/2023 Provider: LISA UMANA MD Diagnosis: Last Documented On 4 8:46AM By Tamara Bermudez ; [facility] Repatha SureClick 140 MG/ML Subcutaneous Solution Auto-injector 08/25/2023 Provider: LISA UMANA MD Diagnosis: Last Documented On 4 8:46AM By Tamara Bermudez ; [facility] Est Estrogens-Methyltest 1.25-2.5 MG Oral Tablet 08/19 Provider: Diagnosis: Last Documented On 4 8:46AM By Tamara Bermudez ; [facility] Cyclobenzaprine HCl 5 MG Oral Tablet 08/13/2023 Prov ider: Venita Arcos APRN Diagnosis: Last Documented On 4 8:46AM By Tamara Bermudez ; [facility] Nebivolol HCl 5 MG Oral Tablet 08/12/2023 Provider: Sobeida Liu MD Diagnosis: Last Documented On 4 8:46AM By Tamara Bermudez ; [facility] Past Medications on file Diclofenac Sodium 50 MG Oral Tablet Delayed Release 03/17/2024 - 05/16/2024 Provider: Praveen lazcano MD Diagnosis: twice a day Last Documented On 4 9:36AM By Darya Seo ; [facility] Aspirin 81 MG Oral Tablet Delayed Release 06/07/2022 - 07/19/2022 Provider: Praveen Webster MD Diagnosis: twice a day Last Documented On 2 6:11PM By Marianna Youssef ; [facility] Acetaminophen 500 MG Oral Tablet 06/04/2022 - 07/04/2022 Provider: Praveen Webster MD Diagnosis: 2 [place] [id number] Last Documented On 2 10:50AM By Kevin Webster ; [facility] traMADol HCl 50 MG Oral Tablet 06/04/2022 - 06/09/2022 Provider: Praveen lazcano MD Diagnosis: 1-2 po q 4-6h sx Last Documented On 2 10:50AM By Kevin Webster ; [facility] oxyCODONE HCl 5 MG Oral Tablet 06/04/2022 - 06/09/2022 Provider: Praveen lazcano MD Diagnosis: 1-2 po q 4-6h sx Last Documented On 2 10:50AM By Kevin Webster ; [facility] Cefadroxil 500 MG Oral Capsule 06/04/2022 - 06/07/2022 Provider: Praveen lazcano MD Diagnosis: twice a day sx Last Documented On 2 10:50AM By Kevin Webster ; [facility] Colace 100 MG Oral Capsule 06/04/2022 - 09/02/2022 Provider: Praveen lazcano MD Diagnosis: 1-2 tabs daily sx Last Documented On 2 10:50AM By Kevin Webster ; [facility], [facility] Meloxicam 15 MG Oral Tablet 06/04/2022 - 06/18/2022 Provider: Praveen lazcano MD Diagnosis: once a day sx Last Documented On 2 10:50AM By Kevin Webster ; [facility], [facility] Ondansetron HCl 4 MG Oral Tablet 06/04/2022 - 06/09/2022 Provider: Praveen Webster MD Diagnosis: [id number] sx Last Documented On 2 10:50AM By Kevin Webster ; [facility], [facility] Medications Administered Includes: Administered Medications from this encounter No Administered Medications Recorded Vital Signs Includes: Vital Signs from this encounter Vital Name 09/23/2024 01:18P Height (in) 67 Weight (lb) 197.3 Body Mass Index 30.9 Body Surface Area 2 Note: ab Last Documented: On 09/23/2024 1:40PM ; [facility], [facility] Results Includes: Results discussed during this encounter No Results Recorded For Specified Dates History of Present Illness Includes: History of Present Illness from this encounter MYRNA Gaspar is a 59 year old female. - Allergy list reviewed - Problem list reviewed - Medication list reviewed - - Review of medications documented Social History Description Last Updated Not a current smoker. 09/12/2023 Last Documented On 5 1:17PM ; [facility], [facility] Tobacco non-user 01/03/2023 Last Documented On 5 1:17PM ; [facility], [facility] Recent change in diet 01/03/2023 Last Documented On 5 1:17PM ; [facility], [facility] Caffeine use 05/19/2020 Last Documented On 5 1:17PM ; [facility], [facility] Exercising regularly 05/19/2020 Last Documented On 5 1:17PM ; [facility], [facility] Recent change in diet low fat/carb 05/19 Last Documented On 5 1:17PM ; [facility], [facility] Non-smoker 05/19/2020 Last Documented On 5 1:17PM ; [facility], [facility] Not a current smoker. 05/19/2020 Last Documented On 5 1:17PM ; [facility], [facility] Not using alcohol 05/19/2020 Last Documented On 5 1:17PM ; [facility], [facility] Not using drugs 05/19/2020 Last Documented On 5 1:17PM ; [facility], [facility] Smoking Status Unknown Procedures and Surgical History Includes: Procedures from this encounter Procedures Code Diagnosis Performing Provider Service Location Service Date HIP BILATERAL [id number] Aftercare following joint replacement surgery, Presence of artificial hip joint, bilateral Ajay Judd PA-C [facility] 09/23/2024 Last Documented On 5 3:23PM ; [facility], [facility] use of tobacco assessment performed 1000F Last Documented On 5 1:17PM ; [facility], [facility] review of medications documented 1160F Last Documented On 5 1:17PM ; [facility], [facility] Surgical History Last Updated Past Surgical History: Sinus sx ~Breast reduction 09/04/2023 Last Documented On 5 1:17PM ; [facility], [facility] Medical History Includes: Medical History addressed during this encounter Description Last Updated No recent immunization for pneumococcal pneumonia 05/22/2022 Last Documented On 5 1:17PM ; [facility], [facility] Recent immunization for flu 04/09/2022 1 07/22/2021 Last Documented On 5 1:17PM ; [facility] Arthritis 05/19/2020 Last Documented On 5 1:17PM ; [facility] Heartburn / Acid Reflux 05/19/2020 Last Documented On 5 1:17PM ; [facility] History of heart disease 05/19/2020 Last Documented On 5 1:17PM ; [facility] Hypertension 05/19/2020 Last Documented On 5 1:17PM ; [facility] Liver Disease 05/19/2020 Last Documented On 5 1:17PM ; [facility] Sleep Apnea 05/19/2020 Last Documented On 5 1:17PM ; [facility], [facility] Past medical and surgical history non-co ntributory 05/19/2020 Last Documented On 5 1:17PM ; [facility], [facility] Family History Includes: Family History addressed during this encounter Description Last Updated Diabetes mellitus 05/19/2020 Last Documented On 5 1:17PM ; [facility], [facility] Family history of heart disease 05/19/20 20 Last Documented On 5 1:17PM ; [facility], [facility] Family history of hypertension 0 Last Documented On 5 1:17PM ; [facility], [facility] Family history of osteoporosis 0 Last Documented On 5 1:17PM ; [facility], [facility] Review of Systems Includes: Review of Systems [...] Active Last Documented On 5 1:17PM ; [facility], [facility] Encounters Encounter Provider Location Date Check-In Time Check-Out Time Diagnosis Follow Up [facility]19 25 1:19PM 2:13PM Overweight Insurance Includes: Active Insurance Policies Plan Name Member ID Group # Subscriber Relationship Effect jeanine Dates 1 - [facility] [id number] Aurea Gaspar Self 07/08/2022 - Unknown Clinical Notes Includes: Clinical Notes from this encounter * Progress note Date Encounter Last Documented by 09/23/2024 Follow Up Last documented on 09/23/2024; 2:33 PM, Ajay Judd PA-C; [facility] Active Problems & Conditions - Joint [...] Care Team - LISA UMANA MD - DATA NETWORK ARCHITECT
== END 2024-10-19 23:59 | disposition home or self-care (01) ==
LOC: RAD 08:59
PROVIDERS: PCP Internal Medicine Adolescent Medicine; Visit Provider Internal Medicine Adolescent Medicine
DX: Z13.820 Encounter for screening for osteoporosis (principal)
CPT/HCPCS: 77080